=== PATIENT | female | born 1950 | race African-American/Black ===

== ENCOUNTER 2017-09-04 14:19 | Inpatient (IN) | payer MEDICARE, OTHER ==
[~2017-09-04] VITALS: Ht 180.3 cm; Wt 95.3 kg
[~2017-09-04 14:19] MED LIST: AMLODIPINE BESY10 MG ORAL; ASPIRIN-LOW81 MG ORAL; CARVEDILOL12.5 MG ORAL; COMBIVENT INH14.7 GM INH; COZAAR50 MG ORAL; FLOVENT DISKUS50 MCG INH; GABAPENTIN100 MG ORAL; LOVASTATIN40 MG ORAL; NAPROXEN250 MG ORAL; NASONEX17 GM NASAL; NEXIUM40 MG ORAL; PENTOXIFYLLINE400 MG ORAL; POTASSIUM CHLOR8 ME3 ORAL; PREDNISOLONE ACE5 ML BOTH EYES; SERTRALINE HCL100 MG ORAL; SPIRIVA18 MCG INH; SYMBICORT 1601 PUFFS INH; TERBINAFINE HC250 MG ORAL
[2017-09-04] MEDS ORDERED: Sodium Chloride 500ML 500 ML IV ONE (14:45)
--- NOTE | 2017-09-04 14:53 | Emergency Room Report ---
History of Present Illness General Chief Complaint: Generalized Weakness Source: Patient Present Illness HPI Patient is a 67-year-old female who presented after increased generalized weakness and lethargy. Patient reports having increased nausea. She reports having prior history of bronchiectasis and COPD. She reports having multiple previous hospitalizations for similar symptoms. Patient reports having been followed by Dr. Cristi Sawyer. she denies any fever. Allergies: Coded Allergies: No Known Allergies (Verified Allergy, Mild, 09/09/09) Patient History Past Medical History: see triage record Last Menstrual Period: na Reviewed Nursing Documentation: PMH: Agreed, PSxH: Agreed Nursing Documentation-PMH Past Medical History: No History, Except For Hx Cardiac Problems: Yes - mitral valve prolapse, heart murmur Hx Hypertension: Yes Hx COPD: Yes Hx Cancer: No Hx Gastrointestinal Problems: Yes Hx Neurological Problems: Yes - headaches, pinched nerve, left eye blindness Hx Headaches: Yes Hx Fatigue: Yes Review of Systems All Other Systems: negative except mentioned in HPI Physical Exam Vital Signs Date Time Temp Pulse Resp B/P (MAP) Pulse Ox O2 Delivery O2 Flow Rate FiO2 09/04/17 14:26 98.1 57 20 137/56 97 Nasal Cannula 2.0 98.1 Sp02 EP Interpretation: reviewed, normal General Appearance: normal inspection, well appearing, no apparent distress, alert, Chronically Ill Head: atraumatic ENT: normal ENT inspection, hearing grossly normal, normal voice Neck: normal inspection, full range of motion, supple, no bony tend Respiratory: normal inspection, no respiratory distress, no retraction, wheezing Cardiovascular #1: regular rate, rhythm, no edema Gastrointestinal: normal inspection, normal bowel sounds, non tender, soft, no guarding, no hernia Genitourinary: no CVA tenderness Musculoskeletal: normal inspection, back normal, normal range of motion Neurologic: normal inspection, alert, oriented x3, responsive, speech normal Psychiatric: normal inspection, judgement/insight normal, mood/affect normal Skin: normal inspection, normal color, no rash Medical Decision Making Diagnostic Impression: Primary Impression: Episode of generalized weakness Additional Impressions: Bronchiectasis COPD (chronic obstructive pulmonary disease) ER Course Patient presented for generalized weakness. Differential diagnosis included was not limited to anemia, urinary tract infection, electrolyte abnormality, hypothyroidism, myocardial infarction, myasthenia gravis, dehydration, among others. Because of complexity of patient's case laboratory testing and imaging studies were ordered. Patient was given breathing treatments as noted have continued shortness of breath.Dr. Cristi Sawyer was contacted for inpatient management. Labs Test 09/04/17 15:25 09/04/17 16:15 White Blood Count 4.2 K/UL (4.8-10.8) Red Blood Count 3.52 M/UL (4.20-5.40) Hemoglobin 11.7 G/DL (12.0-16.0) Hematocrit 35.6 % (37.0-47.0) Mean Corpuscular Volume 101 FL (80-99) Mean Corpuscular Hemoglobin 33.2 PG (27.0-31.0) Mean Corpuscular Hemoglobin Concent 32.8 G/DL (32.0-36.0) Red Cell Distribution Width 11.3 % (11.6-14.8) Platelet Count 227 K/UL (150-450) Mean Platelet Volume 7.9 FL (6.5-10.1) Neutrophils (%) (Auto) 55.8 % (45.0-75.0) Lymphocytes (%) (Auto) 27.6 % (20.0-45.0) Monocytes (%) (Auto) 12.6 % (1.0-10.0) Eosinophils (%) (Auto) 3.0 % (0.0-3.0) Basophils (%) (Auto) 1.0 % (0.0-2.0) Sodium Level 136 MMOL/L (136-145) Potassium Level 4.6 MMOL/L (3.5-5.1) Chloride Level 100 MMOL/L (98-107) Carbon Dioxide Level 29 MMOL/L (21-32) Anion Gap 7 mmol/L (5-15) Blood Urea Nitrogen 18 mg/dL (7-18) Creatinine 2.5 MG/DL (0.55-1.30) Estimat Glomerular Filtration Rate 23.4 mL/min (>60) Glucose Level 104 MG/DL (74-106) Lactic Acid Level 1.30 mmol/L (0.66-2.22) Calcium Level 9.2 MG/DL (8.5-10.1) Phosphorus Level 2.7 MG/DL (2.5-4.9) Magnesium Level 1.8 MG/DL (1.8-2.4) Total Bilirubin 0.3 MG/DL (0.2-1.0) Aspartate Amino Transf (AST/SGOT) 25 U/L (15-37) Alanine Aminotransferase (ALT/SGPT) 20 U/L (12-78) Alkaline Phosphatase 121 U/L (46-116) Total Creatine Kinase 106 U/L (26-308) Creatine Kinase MB 1.0 NG/ML (0.0-3.6) Creatine Kinase MB Relative Index 0.9 Troponin I 0.005 ng/mL (0.000-0.056) Total Protein 7.5 G/DL (6.4-8.2) Albumin 3.9 G/DL (3.4-5.0) Globulin 3.6 g/dL Albumin/Globulin Ratio 1.1 (1.0-2.7) Urine Color Pale yellow Urine Appearance Clear Urine pH 7 (4.5-8.0) Urine Specific [place] 1.010 (1.005-1.035) Urine Protein Negative (NEGATIVE) Urine Glucose (UA) Negative (NEGATIVE) Urine Ketones Negative (NEGATIVE) Urine Occult Blood Negative (NEGATIVE) Urine Nitrite Negative (NEGATIVE) Urine Bilirubin Negative (NEGATIVE) Urine Urobilinogen Normal MG/DL (0.0-1.0) Urine Leukocyte Esterase Negative (NEGATIVE) EKG Diagnostic Results Rate: bradycardiac Rhythm: NSR - 55 ST Segments: no acute changes Chest X-Ray Diagnostic Results Chest X-Ray Diagnostic Results : Chest X-Ray Ordered: Yes # of Views/Limited/Complete: 1 View Indication: Shortness of Breath EP Interpretation: Yes PA Xray: Interpretation reviewed Interpretation: no consolidation, no effusion, no acute cardiopulmonary disease Impression: No acute disease Electronically Signed by: Electronically signed by Dr. Dago Watson M.D. Last Vital Signs Date Time Temp Pulse Resp B/P (MAP) Pulse Ox O2 Delivery O2 Flow Rate FiO2 09/04/17 14:26 98.1 57 20 137/56 97 Nasal Cannula 2.0 98.1 Status: unchanged Disposition: ADMITTED INPATIENT Condition: Serious Dago Watson Sep 04, 2017 14:53
[2017-09-04] MEDS ORDERED: Albuterol/Ipratropium 3ml neb HHN ONE (15:30)
[2017-09-04 15:43] LABS: HEMATOCRIT 35.6 % (37.0-47.0); HEMOGLOBIN 11.7 G/DL (12.0-16.0); LYMPHOCYTES % (AUTO) 27.6 % (20.0-45.0); MEAN CORPUSCULAR VOLUME 101 FL (80-99); MONOCYTES % (AUTO) 12.6 % (1.0-10.0); NEUTROPHILS % (AUTO) 55.8 % (45.0-75.0); PLATELET COUNT 227 K/UL (150-450); RED BLOOD COUNT 3.52 M/UL (4.20-5.40); RED CELL DISTRIBUTION WIDTH 11.3 % (11.6-14.8); WHITE BLOOD COUNT 4.2 K/UL (4.8-10.8)
[2017-09-04 15:53] LABS: ANION GAP 7 mmol/L (5-15); BLOOD UREA NITROGEN 18 mg/dL (7-18); CALCIUM 9.2 MG/DL (8.5-10.1); CARBON DIOXIDE 29 MMOL/L (21-32); CHLORIDE 100 MMOL/L (98-107); CREATININE 2.5 MG/DL (0.55-1.30); POTASSIUM 4.6 MMOL/L (3.5-5.1); SODIUM 136 MMOL/L (136-145)
--- NOTE | 2017-09-04 16:00 | Diagnostic Imaging Report ---
Indication: Shortness of breath Technique: One view of the chest Comparison: 12/16/2012 Findings: Again demonstrated is left apical pleural scarring. Extensive fibrotic changes seen throughout the left lung. There is volume loss of the left lung. These findings are unchanged. There is some right perihilar scarring. Right lung is slightly hyperinflated. Right lung infiltrate is otherwise clear. The heart is borderline enlarged. Surgical clips are seen in the left upper abdomen Impression: Left lung pleural and parenchymal disease, suspect chronic and unchanged since 12/16/2012 No definite acute process
[2017-09-04 16:06] LABS: ALANINE AMINOTRANSFERASE 20 U/L (12-78); ALBUMIN 3.9 G/DL (3.4-5.0); ALBUMIN/GLOBULIN RATIO 1.1 (1.0-2.7); ALKALINE PHOSPHATASE 121 U/L (46-116); ASPARTATE AMINO TRANSFERASE 25 U/L (15-37); BILIRUBIN,TOTAL 0.3 MG/DL (0.2-1.0); CREATINE KINASE 106 U/L (26-308); PHOSPHORUS 2.7 MG/DL (2.5-4.9)
--- NOTE | 2017-09-04 16:26 | GI Initial Consult Note ---
Flori Echevarria N.P. 09/04/17 1626: History of Present Illness General Date patient seen: Sep 04, 2017 Time patient seen: 16:15 Reason for Hospitalization: Generalized Weakness Referring physician: LUMA MCCLENDON Reason for Consultation: ABDOMINAL PAIN Present Illness HPI Patient is a 67-year-old female who presented after increased generalized weakness and lethargy. Patient reports having increased nausea. She reports having prior history of bronchiectasis and COPD. She reports having multiple previous hospitalizations for similar symptoms. Patient reports having been followed by Dr. Luma Mcclendon. she denies any fever. GI consulted for abdominal pain. Pt seen in ED, awake A&Ox4 NAD c/o of lower abdominal pain, nausea without vomiting and having difficulty urinating. Abdomen is soft, non-tender, non distended. Self medicated with elias seltzer and baking soda x 3 days prior to admitting herself to the hospital. Patient has history of elevated CEA, CA19-9. She had previous EUS performed in 2012 to evaluate for any malignancy with was unremarkable. She presents today with anemia, abnormal alk phos and renal insufficiency. Cannot recall her last colonoscopy. Home Meds Reported Medications Trimethoprim/Sulfamethoxazole (Bactrim 400-80 mg Tablet) 1 Each Tablet, 1 TAB ORAL BID, TAB 09/05/17 Multivitamin (MULTIVITAMINS) 1 Each Capsule, 1 CAP ORAL DAILY, CAP 09/04/17 Spironolactone (ALDACTONE) 25 Mg Tablet, 12.5 MG ORAL DAILY, TAB 09/04/17 Atorvastatin Calcium* (ATORVASTATIN CALCIUM*) 20 Mg Tablet, 20 MG ORAL DAILY, TAB 09/04/17 Doxepin HCl (Doxepin HCl) 45 Gm Cream..g., 45 GM TP PRN for Itching, GM 09/04/17 Calcipotriene (CALCIPOTRIENE) 60 Gm Cream..g., 60 GM TP PRN for Itching/Pruritis , GM 09/04/17 Omeprazole (OMEPRAZOLE) 40 Mg Capsule.dr, 40 MG ORAL DAILY, CAP 09/04/17 Baclofen (Baclofen) 20 Mg Tablet, 20 MG ORAL QHS, TAB 09/04/17 Gabapentin* (GABAPENTIN*) 600 Mg Tablet, 600 MG ORAL QHS, TAB 09/04/17 Ipratropium/Albuterol Sulfate (COMBIVENT INHALER) 14.7 Gm Aer.w.adap, 2 PUFFS INH QID 09/05/12 Mometasone Furoate (NASONEX) 17 Gm [place].pump, 1 SPRAY NASAL DAILY, GM 09/05/12 Amlodipine Besylate* (AMLODIPINE BESYLATE*) 10 Mg Tablet, 10 MG ORAL DAILY 09/05/12 Fluticasone Propionate (Flovent Diskus) 50 Mcg Disk.w.dev, 50 MCG INH EVERY 4 HOURS 09/05/12 Sertraline Hcl* (ZOLOFT*) 100 Mg Tablet, 100 MG ORAL DAILY, TAB 09/05/12 Carvedilol* (CARVEDILOL*) 12.5 Mg Tablet, 12.5 MG ORAL EVERY 12 HOURS, TAB 09/05/12 Esomeprazole Magnesium (NEXIUM) 40 Mg Capsule.dr, 40 MG ORAL DAILY, CAP 09/05/12 Losartan Potassium* (COZAAR*) 50 Mg Tablet, 50 MG ORAL DAILY, TAB 09/05/12 Aspirin (Aspirin EC) 81 Mg Tabec, 81 MG ORAL DAILY, TAB 09/05/12 Prednisolone Acetate (PREDNISOLONE ACETATE) 5 Ml Drops.susp, 2 DROP BOTH EYES TWICE A DAY, ML 09/05/12 Discontinued Reported Medications Tiotropium [place]* (SPIRIVA*) 18 Mcg Cap.w.dev, 1 PUFF INH DAILY, #1 EA 09/05/12 Budesonide/Formoterol Fumarate (Symbicort 160-4.5 Mcg Inhaler) 1 Puffs Aero, 1 PUFFS INH TWICE A DAY 09/05/12 Pentoxifylline* (TRENTAL*) 400 Mg Tablet.er, 400 MG ORAL TWICE A DAY, TAB 09/05/12 Potassium Chloride (POTASSIUM CHLORIDE) 8 Meq Tablet.er, 16 MEQ ORAL DAILY, TAB 09/05/12 Lovastatin (LOVASTATIN) 40 Mg Tablet, 40 MG ORAL DAILY, TAB 09/05/12 Terbinafine Hcl* (LAMISIL*) 250 Mg Tablet, 250 MG ORAL DAILY, TAB 09/05/12 Med list reviewed/reconciled: Yes Allergies: Coded Allergies: NO KNOWN ALLERGIES (Verified Allergy, Unknown, 09/04/17) Patient History History Provided By: Patient, Medical Record Past Medical History: COPD PMH Narrative Allergies: Coded Allergies: No Known Allergies (Verified Allergy, Mild, 09/09/09) Past Medical History: No History, Except For Hx Cardiac Problems: Yes - mitral valve prolapse, heart murmur Hx Hypertension: Yes Hx COPD: Yes Hx Cancer: No Hx Gastrointestinal Problems: Yes Hx Neurological Problems: Yes - headaches, pinched nerve, left eye blindness Hx Headaches: Yes Hx Fatigue: Yes Review of Systems All Other Systems: negative except mentioned in HPI Physical Exam Vital Signs Date Time Temp Pulse Resp B/P (MAP) Pulse Ox O2 Delivery O2 Flow Rate FiO2 09/04/17 14:26 98.1 57 20 137/56 97 Nasal Cannula 2.0 98.1 Sp02 EP Interpretation: reviewed, normal Labs Laboratory Tests Test 09/04/17 15:25 White Blood Count 4.2 K/UL (4.8-10.8) L Red Blood Count 3.52 M/UL (4.20-5.40) L Hemoglobin 11.7 G/DL (12.0-16.0) L Hematocrit 35.6 % (37.0-47.0) L Mean Corpuscular Volume 101 FL (80-99) H Mean Corpuscular Hemoglobin 33.2 PG (27.0-31.0) H Mean Corpuscular Hemoglobin Concent 32.8 G/DL (32.0-36.0) Red Cell Distribution Width 11.3 % (11.6-14.8) L Platelet Count 227 K/UL (150-450) Mean Platelet Volume 7.9 FL (6.5-10.1) Neutrophils (%) (Auto) 55.8 % (45.0-75.0) Lymphocytes (%) (Auto) 27.6 % (20.0-45.0) Monocytes (%) (Auto) 12.6 % (1.0-10.0) H Eosinophils (%) (Auto) 3.0 % (0.0-3.0) Basophils (%) (Auto) 1.0 % (0.0-2.0) Sodium Level 136 MMOL/L (136-145) Potassium Level 4.6 MMOL/L (3.5-5.1) Chloride Level 100 MMOL/L (98-107) Carbon Dioxide Level 29 MMOL/L (21-32) Anion Gap 7 mmol/L (5-15) Blood Urea Nitrogen 18 mg/dL (7-18) Creatinine 2.5 MG/DL (0.55-1.30) H Estimat Glomerular Filtration Rate 23.4 mL/min (>60) Glucose Level 104 MG/DL (74-106) Lactic Acid Level Pending Calcium Level 9.2 MG/DL (8.5-10.1) Phosphorus Level 2.7 MG/DL (2.5-4.9) Magnesium Level 1.8 MG/DL (1.8-2.4) Total Bilirubin 0.3 MG/DL (0.2-1.0) Aspartate Amino Transf (AST/SGOT) 25 U/L (15-37) Alanine Aminotransferase (ALT/SGPT) 20 U/L (12-78) Alkaline Phosphatase 121 U/L (46-116) H Total Creatine Kinase 106 U/L (26-308) Creatine Kinase MB 1.0 NG/ML (0.0-3.6) Creatine Kinase MB Relative Index 0.9 Troponin I 0.005 ng/mL (0.000-0.056) Total Protein 7.5 G/DL (6.4-8.2) Albumin 3.9 G/DL (3.4-5.0) Globulin 3.6 g/dL Albumin/Globulin Ratio 1.1 (1.0-2.7) General Appearance: well appearing, no apparent distress, alert Head: normocephalic EENT: PERRL/EOMI, normal ENT inspection Neck: supple Respiratory: normal breath sounds, no respiratory distress Cardiovascular: normal rate Gastrointestinal: normal inspection, non tender, soft, normal bowel sounds, non -distended Rectal: deferred Genitourinary: no CVA tenderness Musculoskeletal: normal inspection, back normal Neurologic: normal inspection, alert, oriented x3, responsive Psychiatric: normal inspection, judgement/insight normal, memory normal Skin: normal inspection, normal color, no rash, warm/dry, palpation normal, well hydrated Lymphatic: normal inspection, no adenopathy GI: Plan Problems: (1) Anemia (2) Renal insufficiency (3) Alkaline phosphatase elevation (4) 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) (5) Episode of generalized weakness Plan s/p EUS 2012 >> unremarkable Hx of CA19-9 elevation CXR reviewed >> no acute process IV/PO hydration adv diet as tolerated zofran prn anemia work up OB stool r/o GI bleed monitor H&H, prn transfusions bowel regime ppi abdominal U/S fu labs, CA19-9 outpatient GI procedures Discussed with Dr. Erwin. Thank you for this patient referral, we will follow. [email or web address] 09/07/17 0912: History of Present Illness General Reason for Hospitalization: Generalized Weakness Present Illness Home Meds Reported Medications Trimethoprim/Sulfamethoxazole (Bactrim 400-80 mg Tablet) 1 Each Tablet, 1 TAB ORAL BID, TAB 09/05/17 Multivitamin (MULTIVITAMINS) 1 Each Capsule, 1 CAP ORAL DAILY, CAP 09/04/17 Spironolactone (ALDACTONE) 25 Mg Tablet, 12.5 MG ORAL DAILY, TAB 09/04/17 Atorvastatin Calcium* (ATORVASTATIN CALCIUM*) 20 Mg Tablet, 20 MG ORAL DAILY, TAB 09/04/17 Doxepin HCl (Doxepin HCl) 45 Gm Cream..g., 45 GM TP PRN for Itching, GM 09/04/17 Calcipotriene (CALCIPOTRIENE) 60 Gm Cream..g., 60 GM TP PRN for Itching/Pruritis , GM 09/04/17 Omeprazole (OMEPRAZOLE) 40 Mg Capsule.dr, 40 MG ORAL DAILY, CAP 09/04/17 Baclofen (Baclofen) 20 Mg Tablet, 20 MG ORAL QHS, TAB 09/04/17 Gabapentin* (GABAPENTIN*) 600 Mg Tablet, 600 MG ORAL QHS, TAB 09/04/17 Ipratropium/Albuterol Sulfate (COMBIVENT INHALER) 14.7 Gm Aer.w.adap, 2 PUFFS INH QID 09/05/12 Mometasone Furoate (NASONEX) 17 Gm [place].pump, 1 SPRAY NASAL DAILY, GM 09/05/12 Amlodipine Besylate* (AMLODIPINE BESYLATE*) 10 Mg Tablet, 10 MG ORAL DAILY 09/05/12 Fluticasone Propionate (Flovent Diskus) 50 Mcg Disk.w.dev, 50 MCG INH EVERY 4 HOURS 09/05/12 Sertraline Hcl* (ZOLOFT*) 100 Mg Tablet, 100 MG ORAL DAILY, TAB 09/05/12 Carvedilol* (CARVEDILOL*) 12.5 Mg Tablet, 12.5 MG ORAL EVERY 12 HOURS, TAB 09/05/12 Esomeprazole Magnesium (NEXIUM) 40 Mg Capsule.dr, 40 MG ORAL DAILY, CAP 09/05/12 Losartan Potassium* (COZAAR*) 50 Mg Tablet, 50 MG ORAL DAILY, TAB 09/05/12 Aspirin (Aspirin EC) 81 Mg Tabec, 81 MG ORAL DAILY, TAB 09/05/12 Prednisolone Acetate (PREDNISOLONE ACETATE) 5 Ml Drops.susp, 2 DROP BOTH EYES TWICE A DAY, ML 09/05/12 Discontinued Reported Medications Tiotropium [place]* (SPIRIVA*) 18 Mcg Cap.w.dev, 1 PUFF INH DAILY, #1 EA 09/05/12 Budesonide/Formoterol Fumarate (Symbicort 160-4.5 Mcg Inhaler) 1 Puffs Aero, 1 PUFFS INH TWICE A DAY 09/05/12 Pentoxifylline* (TRENTAL*) 400 Mg Tablet.er, 400 MG ORAL TWICE A DAY, TAB 09/05/12 Potassium Chloride (POTASSIUM CHLORIDE) 8 Meq Tablet.er, 16 MEQ ORAL DAILY, TAB 09/05/12 Lovastatin (LOVASTATIN) 40 Mg Tablet, 40 MG ORAL DAILY, TAB 09/05/12 Terbinafine Hcl* (LAMISIL*) 250 Mg Tablet, 250 MG ORAL DAILY, TAB 09/05/12 Allergies: Coded Allergies: NO KNOWN ALLERGIES (Verified Allergy, Unknown, 09/04/17) GI: Plan Plan The patient was seen and examined at bedside and all new and available data was reviewed in the patients chart. I agree with the above findings, impression and plan. (Patient seen earlier today. Signature stamp does not reflect patient encounter time.). - MD Swathi [facility]Hon[facility] Ra N.PRadha Sep 04, 2017 16:26 SEVERO ERWIN Sep 07, 2017 09:12
[2017-09-04 16:30] VITALS: BP 120/79
[2017-09-04 17:02] LABS: APPEARANCE,URINE CLEAR; BILIRUBIN, URINE NEGATIVE (NEGATIVE); COLOR,URINE PALE YELLOW; GLUCOSE, URINE (UA) NEGATIVE (NEGATIVE); KETONES,URINE NEGATIVE (NEGATIVE); LEUKOCYTE ESTERASE ,URINE NEGATIVE (NEGATIVE); NITRITE,URINE NEGATIVE (NEGATIVE); PH,URINE 7 (4.5-8.0); PROTEIN,URINE NEGATIVE (NEGATIVE); UROBILINOGEN,URINE NORMAL MG/DL (0.0-1.0)
[2017-09-04] MEDS ORDERED: guaiFENesin 100mg/5ml Liq ud ORAL ONE (18:15)
[2017-09-04 18:33] VITALS: BP 130/79
[2017-09-04 19:46] VITALS: BP 143/56
[2017-09-04] MEDS ORDERED: DOXEPIN HCL45 GM TP (20:06)
[2017-09-04] MEDS ORDERED: GABAPENTIN600 MG ORAL (20:06)
[2017-09-04] MEDS ORDERED: CALCIPOTRIENE60 G1 TP (20:06)
[2017-09-04] MEDS ORDERED: MULTIVITAMINS1 EA11 ORAL (20:06)
[2017-09-04] MEDS ORDERED: ALDACTONE25 MG ORAL (20:06)
[2017-09-04] MEDS ORDERED: ATORVASTATIN CA20 MG ORAL (20:06)
[2017-09-04] MEDS ORDERED: OMEPRAZOLE40 M1 ORAL (20:06)
[2017-09-04] MEDS ORDERED: LIORESAL20 MG ORAL (20:06)
[2017-09-04 20:08] VITALS: BP 136/63
[2017-09-04] MEDS ORDERED: Promethazine/Codeine 5ml UD ORAL PRN (22:15)
[2017-09-04] MEDS ORDERED: LORazepam Inj 2mg/ml 1ml IV PRN (22:15)
[2017-09-04] MEDS ORDERED: Mylanta II UD 30ml ORAL PRN (22:15)
[2017-09-04] MEDS ORDERED: Morphine Sulfate 2mg/ml Inj IVP PRN (22:15)
[2017-09-04] MEDS ORDERED: Miralax 17gm pkt ORAL PRN (22:15)
[2017-09-04] MEDS ORDERED: Nitroglycerin Subl 0.4mg tab SL PRN (22:15)
[2017-09-04] MEDS: D5 1/2NS 1,000 ML IV SCH (23:10)
[2017-09-05] VITALS: BP 120/57
[2017-09-05 04:00] VITALS: BP 124/49
[2017-09-05 08:00] VITALS: BP 123/63
[2017-09-05] MEDS ORDERED: BACTRIM DOUBLE S1 E1 ORAL (08:03)
[2017-09-05 08:51] LABS: EOSINOPHILS % (AUTO) 4.4 % (0.0-3.0); HEMATOCRIT 32.7 % (37.0-47.0); LYMPHOCYTES % (AUTO) 24.5 % (20.0-45.0); MEAN CORPUSCULAR VOLUME 103 FL (80-99); MONOCYTES % (AUTO) 12.9 % (1.0-10.0); NEUTROPHILS % (AUTO) 57.2 % (45.0-75.0); PLATELET COUNT 200 K/UL (150-450); RED BLOOD COUNT 3.19 M/UL (4.20-5.40); RED CELL DISTRIBUTION WIDTH 11.6 % (11.6-14.8); WHITE BLOOD COUNT 3.7 K/UL (4.8-10.8)
[2017-09-05] MEDS ORDERED: Sertraline 100mg tab ORAL SCH (09:00)
[2017-09-05] MEDS ORDERED: Pantoprazole Inj IV SCH (09:00)
[2017-09-05] MEDS ORDERED: Losartan 50mg tab ORAL SCH (09:00)
[2017-09-05 09:09] LABS: AMYLASE 111 U/L (25-115)
[2017-09-05 09:14] LABS: ALANINE AMINOTRANSFERASE 23 U/L (12-78); ALBUMIN 3.6 G/DL (3.4-5.0); ALBUMIN/GLOBULIN RATIO 0.9 (1.0-2.7); ALKALINE PHOSPHATASE 114 U/L (46-116); ANION GAP 8 mmol/L (5-15); ASPARTATE AMINO TRANSFERASE 25 U/L (15-37); BILIRUBIN,TOTAL 0.4 MG/DL (0.2-1.0); BLOOD UREA NITROGEN 16 mg/dL (7-18); CALCIUM 9.4 MG/DL (8.5-10.1); CARBON DIOXIDE 29 MMOL/L (21-32); CHLORIDE 102 MMOL/L (98-107); CREATININE 2.6 MG/DL (0.55-1.30); POTASSIUM 4.7 MMOL/L (3.5-5.1); SODIUM 139 MMOL/L (136-145)
[2017-09-05] MEDS: Carvedilol 12.5mg tab ORAL SCH ×2 (09:17→21:31)
[2017-09-05] MEDS: Heparin 5000 units/ml inj SUBQ SCH ×2 (09:20→21:33)
--- NOTE | 2017-09-05 09:24 | Diagnostic Imaging Report ---
Indication: Abnormal renal function tests. Abnormal liver function tests Technique: Petersen-scale and duplex images of the upper abdomen were obtained Comparison: 12/13/2012 Findings: Exam somewhat limited due to patient body habitus Gallbladder is contracted, otherwise unremarkable, without stones, wall thickening, nor pericholecystic fluid. Sonographic Dove's sign is negative. Common bile duct measures 4 mm in diameter. No intrahepatic biliary ductal dilatation. Liver demonstrates normal echogenicity, no focal abnormality. Portal vein and hepatic veins are patent. Pancreas is unremarkable. Spleen is unremarkable. Left kidney measures 9.6 cm in length. Right kidney measures 9.1 cm length. Both kidneys demonstrate normal echogenicity. 6 there is mild right hydronephrosis previously described right renal cyst is not evident on this exam. Cyst tiny echogenic focus is seen in the right renal sinus . Non-aneurysmal abdominal aorta . Impression: Negative for gallstones or dilated ducts Mild right hydronephrosis, etiology not demonstrated. Consider CT for further evaluation Small right renal collecting system calculus versus artifact
[2017-09-05 09:29] LABS: % IRON SATURATION 24 % (15-50); IRON 61 ug/dL (50-175); TOTAL IRON BINDING CAPACITY 254 ug/dL (250-450)
[2017-09-05 09:39] LABS: ANION GAP 8 mmol/L (5-15); BLOOD UREA NITROGEN 17 mg/dL (7-18); CALCIUM 9.4 MG/DL (8.5-10.1); CARBON DIOXIDE 28 MMOL/L (21-32); CHLORIDE 103 MMOL/L (98-107); CREATININE 2.5 MG/DL (0.55-1.30); FERRITIN 224 NG/ML (8-388); POTASSIUM 4.7 MMOL/L (3.5-5.1); SODIUM 139 MMOL/L (136-145)
--- NOTE | 2017-09-05 10:44 | GI Progress Note ---
Assessment/Plan Problems: (1) Alkaline phosphatase elevation ICD Codes: R74.8 - Abnormal levels of other serum enzymes SNOMED: 371619050 (2) Renal insufficiency ICD Codes: N28.9 - Disorder of kidney and ureter, unspecified SNOMED: 728924632, 714015293 (3) Anemia ICD Codes: D64.9 - Anemia, unspecified SNOMED: 824315005 (4) Episode of generalized weakness ICD Codes: R53.1 - Weakness SNOMED: 58323194 (5) 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) ICD Codes: R79.89 - Other specified abnormal findings of blood chemistry SNOMED: 860849883, 110658377 Status: progressing Status Narrative Discussed with Dr. Jacome. Assessment/Plan s/p EUS 2012 >> unremarkable Hx of CA19-9 elevation CXR reviewed >> no acute process abdominal U/S reviewed >> mild right hydronephrosis IV/PO hydration renal diet promethazine prn anemia work up OB stool r/o GI bleed monitor H&H, prn transfusions bowel regime ppi fu labs, CA19-9 outpatient GI procedures The patient was seen and examined at bedside and all new and available data was reviewed in the patients chart. I agree with the above findings, impression and plan. (Patient seen earlier today. Signature stamp does not reflect patient encounter time.). - Shanel Jacome MD Subjective Subjective nausea better feels light headed hungry Objective Last 24 Hour Vital Signs Date Time Temp Pulse Resp B/P (MAP) Pulse Ox O2 Delivery O2 Flow Rate FiO2 09/05/17 09:18 55 123/63 09/05/17 09:17 123/63 09/05/17 09:17 55 123/63 09/05/17 08:00 98.1 55 20 123/63 98 98.1 09/05/17 08:00 59 09/05/17 07:08 99 Nasal Cannula 2.0 28 09/05/17 07:08 Nasal Cannula 2.0 28 09/05/17 07:07 58 20 100 Nasal Cannula 2.0 28 09/05/17 06:59 56 20 100 Nasal Cannula 2.0 28 09/05/17 04:00 98.1 61 18 124/49 98 98.1 09/05/17 04:00 61 09/05/17 03:30 60 16 98 Room Air 21 09/05/17 03:30 64 20 99 Room Air 21 09/05/17 00:00 97.9 66 16 120/57 94 97.9 09/05/17 00:00 60 09/04/17 20:08 97.9 61 20 136/63 90 97.9 09/04/17 19:50 59 15 143/56 96 09/04/17 19:46 98.0 60 15 143/56 96 Nasal Cannula 2.0 21 98.0 09/04/17 18:33 98.0 60 18 130/79 99 Nasal Cannula 2.0 21 98.0 09/04/17 16:30 98.0 60 18 120/79 99 Nasal Cannula 2.0 98.0 09/04/17 15:55 56 18 100 Room Air 21 09/04/17 15:55 100 09/04/17 15:50 54 17 100 Room Air 21 09/04/17 15:50 54 17 Room Air 98 09/04/17 14:26 98.1 57 20 137/56 97 Nasal Cannula 2.0 98.1 Intake and Output 09/04/17 09/05/17 19:00 07:00 Intake Total 600 ml 450 ml Balance 600 ml 450 ml Intake Oral 100 ml 0 ml IV Total 500 ml 450 ml # Voids 3 Laboratory Tests Test 09/04/17 15:25 09/04/17 16:15 09/05/17 04:00 09/05/17 07:48 White Blood Count 4.2 K/UL (4.8-10.8) L 3.7 K/UL (4.8-10.8) L Red Blood Count 3.52 M/UL (4.20-5.40) L 3.19 M/UL (4.20-5.40) L Hemoglobin 11.7 G/DL (12.0-16.0) L 11.0 G/DL (12.0-16.0) L Hematocrit 35.6 % (37.0-47.0) L 32.7 % (37.0-47.0) L Mean Corpuscular Volume 101 FL (80-99) H 103 FL (80-99) H Mean Corpuscular Hemoglobin 33.2 PG (27.0-31.0) H 34.5 PG (27.0-31.0) H Mean Corpuscular Hemoglobin Concent 32.8 G/DL (32.0-36.0) 33.6 G/DL (32.0-36.0) Red Cell Distribution Width 11.3 % (11.6-14.8) L 11.6 % (11.6-14.8) Platelet Count 227 K/UL (150-450) 200 K/UL (150-450) Mean Platelet Volume 7.9 FL (6.5-10.1) 8.1 FL (6.5-10.1) Neutrophils (%) (Auto) 55.8 % (45.0-75.0) 57.2 % (45.0-75.0) Lymphocytes (%) (Auto) 27.6 % (20.0-45.0) 24.5 % (20.0-45.0) Monocytes (%) (Auto) 12.6 % (1.0-10.0) H 12.9 % (1.0-10.0) H Eosinophils (%) (Auto) 3.0 % (0.0-3.0) 4.4 % (0.0-3.0) H Basophils (%) (Auto) 1.0 % (0.0-2.0) 1.0 % (0.0-2.0) Sodium Level 136 MMOL/L (136-145) 139 MMOL/L (136-145) Potassium Level 4.6 MMOL/L (3.5-5.1) 4.7 MMOL/L (3.5-5.1) Chloride Level 100 MMOL/L (98-107) 102 MMOL/L (98-107) Carbon Dioxide Level 29 MMOL/L (21-32) 29 MMOL/L (21-32) Anion Gap 7 mmol/L (5-15) 8 mmol/L (5-15) Blood Urea Nitrogen 18 mg/dL (7-18) 16 mg/dL (7-18) Creatinine 2.5 MG/DL (0.55-1.30) H 2.6 MG/DL (0.55-1.30) H Estimat Glomerular Filtration Rate 23.4 mL/min (>60) 22.4 mL/min (>60) Glucose Level 104 MG/DL (74-106) 112 MG/DL (74-106) H Lactic Acid Level 1.30 mmol/L (0.66-2.22) Calcium Level 9.2 MG/DL (8.5-10.1) 9.4 MG/DL (8.5-10.1) Phosphorus Level 2.7 MG/DL (2.5-4.9) Magnesium Level 1.8 MG/DL (1.8-2.4) Total Bilirubin 0.3 MG/DL (0.2-1.0) 0.4 MG/DL (0.2-1.0) Aspartate Amino Transf (AST/SGOT) 25 U/L (15-37) 25 U/L (15-37) Alanine Aminotransferase (ALT/SGPT) 20 U/L (12-78) 23 U/L (12-78) Alkaline Phosphatase 121 U/L (46-116) H 114 U/L (46-116) Total Creatine Kinase 106 U/L (26-308) Creatine Kinase MB 1.0 NG/ML (0.0-3.6) Creatine Kinase MB Relative Index 0.9 Troponin I 0.005 ng/mL (0.000-0.056) Total Protein 7.5 G/DL (6.4-8.2) 7.4 G/DL (6.4-8.2) Albumin 3.9 G/DL (3.4-5.0) 3.6 G/DL (3.4-5.0) Globulin 3.6 g/dL 3.8 g/dL Albumin/Globulin Ratio 1.1 (1.0-2.7) 0.9 (1.0-2.7) L Urine Color Pale yellow Urine Appearance Clear Urine pH 7 (4.5-8.0) Urine Specific [place] 1.010 (1.005-1.035) Urine Protein Negative (NEGATIVE) Urine Glucose (UA) Negative (NEGATIVE) Urine Ketones Negative (NEGATIVE) Urine Occult Blood Negative (NEGATIVE) Urine Nitrite Negative (NEGATIVE) Urine Bilirubin Negative (NEGATIVE) Urine Urobilinogen Normal MG/DL (0.0-1.0) Urine Leukocyte Esterase Negative (NEGATIVE) Reticulocyte Count Pending Prothrombin Time 10.4 SEC (9.30-11.50) Prothromb Time International Ratio 1.0 (0.9-1.1) Activated Partial Thromboplast Time 27 SEC (23-33) Iron Level 61 ug/dL (50-175) Total Iron Binding Capacity 254 ug/dL (250-450) Percent Iron Saturation 24 % (15-50) Unsaturated Iron Binding 193 ug/dL (112-346) Ferritin 224 NG/ML (8-388) Amylase Level 111 U/L (25-115) Lipase 205 U/L (73-393) Vitamin B12 Level 675 PG/ML (193-986) Folate 11.0 NG/ML (8.6-58.9) Thyroid Stimulating Hormone (TSH) 2.272 uiU/mL (0.358-3.740) Free Thyroxine 0.59 NG/DL (0.76-1.46) L Height (Feet): 5 Height (Inches): 11.00 Weight (Pounds): 210 General Appearance: WD/WN, no apparent distress, alert Cardiovascular: normal rate Respiratory/Chest: normal breath sounds, no respiratory distress Abdominal Exam: normal bowel sounds, non tender, soft Extremities: normal range of motion, non-tender Flori Echevarria NLuis Enrique Sep 05, 2017 10:44 SEVERO JACOME Sep 07, 2017 10:17
[2017-09-05] MEDS ORDERED: Promethazine 25mg tab ORAL PRN (11:30)
[2017-09-05] MEDS: D5 1/2NS 1,000 ML IV SCH ×2 (11:54→23:39)
[2017-09-05 12:00] VITALS: BP 117/56
--- NOTE | 2017-09-05 15:14 | General Progress Note ---
Assessment/Plan Problem List: (1) SOB (shortness of breath) ICD Codes: R06.02 - Shortness of breath SNOMED: 283281943 (2) Weak ICD Codes: R53.1 - Weakness SNOMED: 50729682 (3) Abdominal pain ICD Codes: R10.9 - Unspecified abdominal pain SNOMED: 12106538 (4) Anemia ICD Codes: D64.9 - Anemia, unspecified SNOMED: 545266004 (5) Renal insufficiency ICD Codes: N28.9 - Disorder of kidney and ureter, unspecified SNOMED: 932036150, 940877363 (6) COPD (chronic obstructive pulmonary disease) ICD Codes: J44.9 - Chronic obstructive pulmonary disease, unspecified SNOMED: 19346266 (7) Episode of generalized weakness ICD Codes: R53.1 - Weakness SNOMED: 38090567 Status: unchanged Assessment/Plan o2 pulm tx pain control ot pt diet cbc bmp am Subjective Constitutional: Reports: weakness Respiratory: Reports: shortness of breath Allergies: Coded Allergies: NO KNOWN ALLERGIES (Verified Allergy, Unknown, 09/04/17) All Systems: reviewed and negative except above Subjective o2nc sob weak Objective Last 24 Hour Vital Signs Date Time Temp Pulse Resp B/P (MAP) Pulse Ox O2 Delivery O2 Flow Rate FiO2 09/05/17 12:00 98.0 55 20 117/56 96 98.0 09/05/17 12:00 65 09/05/17 11:33 58 22 98 Nasal Cannula 1.0 24 09/05/17 11:28 58 18 98 Nasal Cannula 1.0 24 09/05/17 09:18 55 123/63 09/05/17 09:17 123/63 09/05/17 09:17 55 123/63 09/05/17 08:00 98.1 55 20 123/63 98 98.1 09/05/17 08:00 59 09/05/17 07:08 99 Nasal Cannula 2.0 28 09/05/17 07:08 Nasal Cannula 2.0 28 09/05/17 07:07 58 20 100 Nasal Cannula 2.0 28 09/05/17 06:59 56 20 100 Nasal Cannula 2.0 28 09/05/17 04:00 98.1 61 18 124/49 98 98.1 09/05/17 04:00 61 09/05/17 03:30 60 16 98 Room Air 21 09/05/17 03:30 64 20 99 Room Air 21 09/05/17 00:00 97.9 66 16 120/57 94 97.9 09/05/17 00:00 60 09/04/17 20:08 97.9 61 20 136/63 90 97.9 09/04/17 19:50 59 15 143/56 96 09/04/17 19:46 98.0 60 15 143/56 96 Nasal Cannula 2.0 21 98.0 09/04/17 18:33 98.0 60 18 130/79 99 Nasal Cannula 2.0 21 98.0 09/04/17 16:30 98.0 60 18 120/79 99 Nasal Cannula 2.0 98.0 09/04/17 15:55 56 18 100 Room Air 21 09/04/17 15:55 100 09/04/17 15:50 54 17 100 Room Air 21 09/04/17 15:50 54 17 Room Air 98 Intake and Output 09/04/17 09/05/17 19:00 07:00 Intake Total 600 ml 450 ml Balance 600 ml 450 ml Intake Oral 100 ml 0 ml IV Total 500 ml 450 ml # Voids 3 Laboratory Tests 09/04/17 15:25: White Blood Count 4.2L, Red Blood Count 3.52L, Hemoglobin 11.7L, Hematocrit 35.6L, Mean Corpuscular Volume 101H, Mean Corpuscular Hemoglobin 33.2H, Mean Corpuscular Hemoglobin Concent 32.8, Red Cell Distribution Width 11.3L, Platelet Count 227, Mean Platelet Volume 7.9, Neutrophils (%) (Auto) 55.8, Lymphocytes (%) (Auto) 27.6, Monocytes (%) (Auto) 12.6H, Eosinophils (%) (Auto) 3.0, Basophils (%) (Auto) 1.0, Sodium Level 136, Potassium Level 4.6, Chloride Level 100, Carbon Dioxide Level 29, Anion Gap 7, Blood Urea Nitrogen 18, Creatinine 2.5H, Estimat Glomerular Filtration Rate 23.4, Glucose Level 104, Lactic Acid Level 1.30, Calcium Level 9.2, Phosphorus Level 2.7, Magnesium Level 1.8, Total Bilirubin 0.3, Aspartate Amino Transf (AST/SGOT) 25, Alanine Aminotransferase (ALT/SGPT) 20, Alkaline Phosphatase 121H, Total Creatine Kinase 106, Creatine Kinase MB 1.0, Creatine Kinase MB Relative Index 0.9, Troponin I 0.005, Total Protein 7.5, Albumin 3.9, Globulin 3.6, Albumin/ Globulin Ratio 1.1 09/04/17 16:15: Urine Color Pale yellow, Urine Appearance Clear, Urine pH 7, Urine Specific [place] 1.010, Urine Protein Negative, Urine Glucose (UA) Negative, Urine Ketones Negative, Urine Occult Blood Negative, Urine Nitrite Negative, Urine Bilirubin Negative, Urine Urobilinogen Normal, Urine Leukocyte Esterase Negative 09/05/17 07:48: White Blood Count 3.7L, Red Blood Count 3.19L, Hemoglobin 11.0L, Hematocrit 32.7L, Mean Corpuscular Volume 103H, Mean Corpuscular Hemoglobin 34.5H, Mean Corpuscular Hemoglobin Concent 33.6, Red Cell Distribution Width 11.6, Platelet Count 200, Mean Platelet Volume 8.1, Neutrophils (%) (Auto) 57.2, Lymphocytes (% ) (Auto) 24.5, Monocytes (%) (Auto) 12.9H, Eosinophils (%) (Auto) 4.4H, Basophils (%) (Auto) 1.0, Sodium Level 139, Potassium Level 4.7, Chloride Level 102, Carbon Dioxide Level 29, Anion Gap 8, Blood Urea Nitrogen 16, Creatinine 2.6H, Estimat Glomerular Filtration Rate 22.4, Glucose Level 112H, Calcium Level 9.4, Total Bilirubin 0.4, Aspartate Amino Transf (AST/SGOT) 25, Alanine Aminotransferase (ALT/SGPT) 23, Alkaline Phosphatase 114, Total Protein 7.4, Albumin 3.6, Globulin 3.8, Albumin/Globulin Ratio 0.9L, Reticulocyte Count 1.3, Prothrombin Time 10.4, Prothromb Time International Ratio 1.0, Activated Partial Thromboplast Time 27, Iron Level 61, Total Iron Binding Capacity 254, Percent Iron Saturation 24, Unsaturated Iron Binding 193, Ferritin 224, Amylase Level 111, Lipase 205, Vitamin B12 Level 675, Folate 11.0, Thyroid Stimulating Hormone (TSH) 2.272, Free Thyroxine 0.59L Height (Feet): 5 Height (Inches): 11.00 Weight (Pounds): 210 General Appearance: lethargic EENT: normal ENT inspection Neck: normal alignment Cardiovascular: normal peripheral pulses, normal rate, regular rhythm Respiratory/Chest: decreased breath sounds Abdomen: normal bowel sounds, non tender, soft Extremities: normal inspection Edema: no edema noted Arm (L), no edema noted Arm (R), no edema noted Leg (L), no edema noted Leg (R), no edema noted Pedal (L), no edema noted Pedal (R), no edema noted Generalized Neurologic: responsive, motor weakness Skin: normal pigmentation, warm/dry LUMA MCCLENDON Sep 05, 2017 15:14
--- NOTE | 2017-09-05 15:58 | Consultation ---
History of Present Illness General Date patient seen: Sep 05, 2017 Chief Complaint: Generalized Weakness Referring physician: LUMA MCLCENDON Reason for Consultation: ABDOMINAL PAIN Present Illness HPI 67-year-old female with hx of COPD, Bronchiectasis, chronic lung disease, HTN, depression presented to ER of [facility] with dyspnea, generalized weakness and lethargy. She reports having multiple previous hospitalizations for similar symptoms. Allergies: Coded Allergies: NO KNOWN ALLERGIES (Verified Allergy, Unknown, 09/04/17) Medication History Scheduled Amlodipine Besylate* (Amlodipine Besylate*), 10 MG ORAL DAILY, (Reported) Aspirin (Aspirin EC), 81 MG ORAL DAILY, (Reported) Atorvastatin Calcium* (Atorvastatin Calcium*), 20 MG ORAL DAILY, (Reported) Baclofen (Baclofen), 20 MG ORAL QHS, (Reported) Carvedilol* (Carvedilol*), 12.5 MG ORAL EVERY 12 HOURS, (Reported) Esomeprazole Magnesium (Nexium), 40 MG ORAL DAILY, (Reported) Fluticasone Propionate (Flovent Diskus), 50 MCG INH EVERY 4 HOURS, (Reported) Gabapentin* (Gabapentin*), 600 MG ORAL QHS, (Reported) Ipratropium/Albuterol Sulfate (Combivent Inhaler), 2 PUFFS INH QID, (Reported) Losartan Potassium* (Cozaar*), 50 MG ORAL DAILY, (Reported) Mometasone Furoate (Nasonex), 1 SPRAY NASAL DAILY, (Reported) Multivitamin (Multivitamins), 1 CAP ORAL DAILY, (Reported) Omeprazole (Omeprazole), 40 MG ORAL DAILY, (Reported) Prednisolone Acetate (Prednisolone Acetate), 2 DROP BOTH EYES TWICE A DAY, ( Reported) Sertraline Hcl* (Zoloft*), 100 MG ORAL DAILY, (Reported) Spironolactone (Aldactone), 12.5 MG ORAL DAILY, (Reported) Trimethoprim/Sulfamethoxazole (Bactrim 400-80 mg Tablet), 1 TAB ORAL BID, ( Reported) Scheduled PRN Calcipotriene (Calcipotriene), 60 GM TP for Itching/Pruritis, (Reported) Doxepin HCl (Doxepin HCl), 45 GM TP for Itching, (Reported) Discontinued Medications Budesonide/Formoterol Fumarate (Symbicort 160-4.5 Mcg Inhaler), 1 PUFFS INH TWICE A DAY, (Reported) Discontinued Reason: MD discontinued med Lovastatin (Lovastatin), 40 MG ORAL DAILY, (Reported) Discontinued Reason: MD discontinued med Pentoxifylline* (Trental*), 400 MG ORAL TWICE A DAY, (Reported) Discontinued Reason: Pt stopped taking med Potassium Chloride (Potassium Chloride), 16 MEQ ORAL DAILY, (Reported) Discontinued Reason: Pt stopped taking med Terbinafine Hcl* (Lamisil*), 250 MG ORAL DAILY, (Reported) Discontinued Reason: Pt stopped taking med Tiotropium [place]* (Spiriva*), 1 PUFF INH DAILY, (Reported) Discontinued Reason: Pt stopped taking med Patient History Healthcare decision maker Resuscitation status Full Code Advanced Directive on File Past Medical/Surgical History Past Medical/Surgical History: (1) Bronchiectasis (2) COPD (chronic obstructive pulmonary disease) (3) 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) (4) Anemia Review of Systems Respiratory: Reports: shortness of breath Gastrointestinal: Reports: abdominal pain, nausea, vomiting Physical Exam General Appearance: WD/WN Lines, tubes and drains: peripheral HEENT: normocephalic, atraumatic Neck: non-tender, normal alignment Respiratory/Chest: chest wall non-tender, normal breath sounds Breasts: no masses Cardiovascular/Chest: normal peripheral pulses Abdomen: normal bowel sounds, non tender Extremities: normal range of motion, non-tender Last 24 Hour Vital Signs Date Time Temp Pulse Resp B/P (MAP) Pulse Ox O2 Delivery O2 Flow Rate FiO2 09/05/17 15:27 60 20 99 Nasal Cannula 1.0 24 09/05/17 12:00 98.0 55 20 117/56 96 98.0 09/05/17 12:00 65 09/05/17 11:33 58 22 98 Nasal Cannula 1.0 24 09/05/17 11:28 58 18 98 Nasal Cannula 1.0 24 09/05/17 09:18 55 123/63 09/05/17 09:17 123/63 09/05/17 09:17 55 123/63 09/05/17 08:00 98.1 55 20 123/63 98 98.1 09/05/17 08:00 59 09/05/17 07:08 99 Nasal Cannula 2.0 28 09/05/17 07:08 Nasal Cannula 2.0 28 09/05/17 07:07 58 20 100 Nasal Cannula 2.0 28 09/05/17 06:59 56 20 100 Nasal Cannula 2.0 28 09/05/17 04:00 98.1 61 18 124/49 98 98.1 09/05/17 04:00 61 09/05/17 03:30 60 16 98 Room Air 21 09/05/17 03:30 64 20 99 Room Air 21 09/05/17 00:00 97.9 66 16 120/57 94 97.9 09/05/17 00:00 60 09/04/17 20:08 97.9 61 20 136/63 90 97.9 09/04/17 19:50 59 15 143/56 96 09/04/17 19:46 98.0 60 15 143/56 96 Nasal Cannula 2.0 21 98.0 09/04/17 18:33 98.0 60 18 130/79 99 Nasal Cannula 2.0 21 98.0 09/04/17 16:30 98.0 60 18 120/79 99 Nasal Cannula 2.0 98.0 09/04/17 15:55 56 18 100 Room Air 21 09/04/17 15:55 100 Intake and Output 09/04/17 09/05/17 19:00 07:00 Intake Total 600 ml 450 ml Balance 600 ml 450 ml Intake Oral 100 ml 0 ml IV Total 500 ml 450 ml # Voids 3 Laboratory Tests Test 09/04/17 16:15 09/05/17 07:48 Urine Color Pale yellow Urine Appearance Clear Urine pH 7 (4.5-8.0) Urine Specific [place] 1.010 (1.005-1.035) Urine Protein Negative (NEGATIVE) Urine Glucose (UA) Negative (NEGATIVE) Urine Ketones Negative (NEGATIVE) Urine Occult Blood Negative (NEGATIVE) Urine Nitrite Negative (NEGATIVE) Urine Bilirubin Negative (NEGATIVE) Urine Urobilinogen Normal MG/DL (0.0-1.0) Urine Leukocyte Esterase Negative (NEGATIVE) White Blood Count 3.7 K/UL (4.8-10.8) L Red Blood Count 3.19 M/UL (4.20-5.40) L Hemoglobin 11.0 G/DL (12.0-16.0) L Hematocrit 32.7 % (37.0-47.0) L Mean Corpuscular Volume 103 FL (80-99) H Mean Corpuscular Hemoglobin 34.5 PG (27.0-31.0) H Mean Corpuscular Hemoglobin Concent 33.6 G/DL (32.0-36.0) Red Cell Distribution Width 11.6 % (11.6-14.8) Platelet Count 200 K/UL (150-450) Mean Platelet Volume 8.1 FL (6.5-10.1) Neutrophils (%) (Auto) 57.2 % (45.0-75.0) Lymphocytes (%) (Auto) 24.5 % (20.0-45.0) Monocytes (%) (Auto) 12.9 % (1.0-10.0) H Eosinophils (%) (Auto) 4.4 % (0.0-3.0) H Basophils (%) (Auto) 1.0 % (0.0-2.0) Reticulocyte Count 1.3 % (0.0-2.0) Prothrombin Time 10.4 SEC (9.30-11.50) Prothromb Time International Ratio 1.0 (0.9-1.1) Activated Partial Thromboplast Time 27 SEC (23-33) Sodium Level 139 MMOL/L (136-145) Potassium Level 4.7 MMOL/L (3.5-5.1) Chloride Level 102 MMOL/L (98-107) Carbon Dioxide Level 29 MMOL/L (21-32) Anion Gap 8 mmol/L (5-15) Blood Urea Nitrogen 16 mg/dL (7-18) Creatinine 2.6 MG/DL (0.55-1.30) H Estimat Glomerular Filtration Rate 22.4 mL/min (>60) Glucose Level 112 MG/DL (74-106) H Calcium Level 9.4 MG/DL (8.5-10.1) Iron Level 61 ug/dL (50-175) Total Iron Binding Capacity 254 ug/dL (250-450) Percent Iron Saturation 24 % (15-50) Unsaturated Iron Binding 193 ug/dL (112-346) Ferritin 224 NG/ML (8-388) Total Bilirubin 0.4 MG/DL (0.2-1.0) Aspartate Amino Transf (AST/SGOT) 25 U/L (15-37) Alanine Aminotransferase (ALT/SGPT) 23 U/L (12-78) Alkaline Phosphatase 114 U/L (46-116) Total Protein 7.4 G/DL (6.4-8.2) Albumin 3.6 G/DL (3.4-5.0) Globulin 3.8 g/dL Albumin/Globulin Ratio 0.9 (1.0-2.7) L Amylase Level 111 U/L (25-115) Lipase 205 U/L (73-393) Vitamin B12 Level 675 PG/ML (193-986) Folate 11.0 NG/ML (8.6-58.9) Thyroid Stimulating Hormone (TSH) 2.272 uiU/mL (0.358-3.740) Free Thyroxine 0.59 NG/DL (0.76-1.46) L Height (Feet): 5 Height (Inches): 11.00 Weight (Pounds): 210 Medications Current Medications Medications (Trade) Dose Ordered Sig/Suraj Route PRN Reason Start Time Stop Time Status Last Admin Dose Admin Acetaminophen (Tylenol) 650 mg Q4H PRN ORAL fever 09/04/17 22:15 10/04/17 22:14 Al Hydroxide/Mg Hydroxide (Mylanta II) 30 ml Q6H PRN ORAL dyspepsia 09/04/17 22:15 10/04/17 22:14 Amlodipine Besylate (Norvasc) 10 mg DAILY ORAL 09/05/17 09:00 10/05/17 08:59 09/05/17 09:18 Atorvastatin Calcium (Lipitor) 20 mg DAILY ORAL 09/05/17 09:00 10/05/17 08:59 09/05/17 09:17 Carvedilol (Coreg) 12.5 mg EVERY 12 HOURS ORAL 09/05/17 09:00 10/05/17 08:59 09/05/17 09:17 Dextrose (Dextrose 50%) STAT PRN IV Hypoglycemia 09/04/17 22:15 10/04/17 22:14 Dextrose/Sodium Chloride 1,000 ml @ 75 mls/hr [id number] IV 09/04/17 22:02 10/04/17 22:01 09/05/17 11:54 Diphenhydramine HCl (Benadryl) 25 mg Q6H PRN ORAL Itching/Pruritis 09/04/17 22:15 10/04/17 22:14 Gabapentin (Neurontin) 600 mg QHS ORAL 09/05/17 21:00 10/05/17 20:59 Heparin Sodium (Porcine) (Heparin 5000 units/ml) 5,000 units EVERY 12 HOURS SUBQ 09/05/17 09:00 10/05/17 08:59 09/05/17 09:20 Lorazepam (Ativan 2mg/ml 1ml) 1 mg EVERY 4 HOURS PRN IV agitation 09/04/17 22:15 09/11/17 22:14 Losartan Potassium (Cozaar) 50 mg DAILY ORAL 09/05/17 09:00 10/05/17 08:59 09/05/17 09:17 Morphine Sulfate (Morphine Sulfate) 2 mg EVERY 4 HOURS PRN IVP severe Pain (Pain Scale 7-10) 09/04/17 22:15 09/11/17 22:14 Nitroglycerin (Ntg) 0.4 mg Q5M PRN SL Prn Chest Pain 09/04/17 22:15 10/04/17 22:14 Ondansetron HCl (Zofran) 4 mg Q6H PRN IVP Nausea & Vomiting 09/05/17 11:30 10/04/17 22:14 Pantoprazole (Protonix) 40 mg DAILY IV 09/05/17 09:00 10/05/17 08:59 09/05/17 09:17 Polyethylene Glycol (Miralax) 17 gm HSPRN PRN ORAL Constipation 09/04/17 22:15 10/04/17 22:14 Promethazine HCl (Phenergan) 25 mg EVERY 8 HOURS PRN IV refractory nausea 09/04/17 22:15 10/04/17 22:14 Promethazine HCl (Phenergan) 25 mg TID PRN ORAL Nausea & Vomiting 09/05/17 11:30 10/05/17 11:29 Promethazine HCl/ Codeine (Phenergan with Codeine) 5 ml Q4H PRN ORAL For Cough 09/04/17 22:15 10/04/17 22:14 Sertraline HCl (Zoloft) 100 mg DAILY ORAL 09/05/17 09:00 10/05/17 08:59 09/05/17 09:17 Temazepam (Restoril) 15 mg HSPRN PRN ORAL Insomnia 09/04/17 22:15 3/27/18 22:14 Assessment/Plan Problem List: (1) Intractable nausea and vomiting ICD Codes: R11.2 - Nausea with vomiting, unspecified SNOMED: 455215577 (2) COPD (chronic obstructive pulmonary disease) ICD Codes: J44.9 - Chronic obstructive pulmonary disease, unspecified SNOMED: 09586558 (3) Bronchiectasis ICD Codes: J47.9 - Bronchiectasis, uncomplicated SNOMED: 79492397 (4) SOB (shortness of breath) ICD Codes: R06.02 - Shortness of breath SNOMED: 736342336 (5) Episode of generalized weakness ICD Codes: R53.1 - Weakness SNOMED: 31226839 Assessment/Plan respiratory treatment check sputum titrate fio2 to sat of 92% GI evaluation symptomatic treatment Montse Hendrix MD Sep 05, 2017 15:58
[2017-09-05 16:00] VITALS: BP 136/56
--- NOTE | 2017-09-05 16:58 | Cardiology Report ---
APPROVED REPORT EKG Measurement Heart [id number] HI [id number] Sinus bradycardia Otherwise normal ECG
[2017-09-05 20:00] VITALS: BP 137/60
[2017-09-05] MEDS ORDERED: Nitroglycerin Subl 0.4mg tab SL PRN (23:50)
[2017-09-06 00:41] VITALS: BP 132/55
[2017-09-06] MEDS: D5 1/2NS 1,000 ML IV SCH ×2 (00:54→12:50)
[2017-09-06] MEDS ORDERED: Morphine Sulfate 2mg/ml Inj IVP PRN (01:00)
[2017-09-06] MEDS ORDERED: LORazepam Inj 2mg/ml 1ml IV PRN (01:00)
[2017-09-06] MEDS ORDERED: Promethazine/Codeine 5ml UD ORAL PRN (02:15)
[2017-09-06 04:00] VITALS: BP 140/63
[2017-09-06] MEDS ORDERED: Mylanta II UD 30ml ORAL PRN (04:15)
[2017-09-06 08:00] VITALS: BP 135/60
[2017-09-06 08:44] LABS: BASOPHILS % (AUTO) 0.8 % (0.0-2.0); HEMATOCRIT 33.9 % (37.0-47.0); HEMOGLOBIN 11.1 G/DL (12.0-16.0); LYMPHOCYTES % (AUTO) 27.1 % (20.0-45.0); MEAN CORPUSCULAR VOLUME 103 FL (80-99); MONOCYTES % (AUTO) 11.9 % (1.0-10.0); NEUTROPHILS % (AUTO) 53.2 % (45.0-75.0); PLATELET COUNT 187 K/UL (150-450); RED BLOOD COUNT 3.29 M/UL (4.20-5.40); RED CELL DISTRIBUTION WIDTH 11.5 % (11.6-14.8); WHITE BLOOD COUNT 3.5 K/UL (4.8-10.8)
[2017-09-06] MEDS ORDERED: Promethazine 25mg tab ORAL PRN (09:00)
[2017-09-06] MEDS: Heparin 5000 units/ml inj SUBQ SCH ×2 (09:08→21:16)
[2017-09-06 09:09] LABS: ANION GAP 9 mmol/L (5-15); BLOOD UREA NITROGEN 18 mg/dL (7-18); CALCIUM 9.2 MG/DL (8.5-10.1); CARBON DIOXIDE 25 MMOL/L (21-32); CHLORIDE 105 MMOL/L (98-107); CREATININE 2.5 MG/DL (0.55-1.30); POTASSIUM 4.5 MMOL/L (3.5-5.1); SODIUM 139 MMOL/L (136-145)
[2017-09-06] MEDS: Pantoprazole Inj IV SCH (09:09)
[2017-09-06] MEDS: Carvedilol 12.5mg tab ORAL SCH ×2 (09:09→21:16)
[2017-09-06] MEDS: Losartan 50mg tab ORAL SCH (09:10)
[2017-09-06] MEDS: Sertraline 100mg tab ORAL SCH (09:10)
[2017-09-06] MEDS ORDERED: Docusate 100mg cap ORAL PRN (11:00)
--- NOTE | 2017-09-06 11:02 | GI Progress Note ---
Assessment/Plan Problems: (1) Alkaline phosphatase elevation ICD Codes: R74.8 - Abnormal levels of other serum enzymes SNOMED: 916153806 (2) Renal insufficiency ICD Codes: N28.9 - Disorder of kidney and ureter, unspecified SNOMED: 518475645, 642724384 (3) Anemia ICD Codes: D64.9 - Anemia, unspecified SNOMED: 115148635 (4) Episode of generalized weakness ICD Codes: R53.1 - Weakness SNOMED: 89566935 (5) 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) ICD Codes: R79.89 - Other specified abnormal findings of blood chemistry SNOMED: 414168107, 515919082 Status: stable Status Narrative Discussed with Dr. Jacome. Assessment/Plan s/p EUS 2012 >> unremarkable Hx of CA19-9 elevation CXR reviewed >> no acute process abdominal U/S reviewed >> mild right hydronephrosis IV/PO hydration renal diet promethazine prn anemia work up OB stool r/o GI bleed monitor H&H, prn transfusions bowel regime ppi fu labs, CA19-9 outpatient GI procedures Subjective Subjective dizzy tolerating diet Objective Last 24 Hour Vital Signs Date Time Temp Pulse Resp B/P (MAP) Pulse Ox O2 Delivery O2 Flow Rate FiO2 09/06/17 09:10 135/60 09/06/17 09:10 64 135/60 09/06/17 09:09 64 135/60 09/06/17 08:00 97.7 64 18 135/60 93 97.7 09/06/17 07:30 98 Nasal Cannula 2.0 28 09/06/17 07:30 Nasal Cannula 2.0 28 09/06/17 05:40 Nasal Cannula 2.0 09/06/17 04:00 98.4 58 20 140/63 93 Room Air 98.4 09/06/17 02:27 Nasal Cannula 09/06/17 02:27 Nasal Cannula 09/06/17 00:41 98.1 60 18 132/55 92 Nasal Cannula 2.0 98.1 09/05/17 23:02 62 22 99 Nasal Cannula 2.0 28 09/05/17 23:02 65 20 99 Nasal Cannula 2.0 28 09/05/17 21:31 62 137/60 09/05/17 21:06 98 Nasal Cannula 2.0 28 09/05/17 20:00 96.6 62 18 137/60 92 Nasal Cannula 2.0 96.6 09/05/17 19:00 Nasal Cannula 2.0 28 09/05/17 19:00 60 20 97 Nasal Cannula 2.0 28 09/05/17 19:00 62 22 97 Nasal Cannula 2.0 28 09/05/17 16:00 56 09/05/17 16:00 98.0 56 19 136/56 92 Nasal Cannula 2.0 98.0 09/05/17 15:27 60 20 99 Nasal Cannula 1.0 24 09/05/17 12:00 98.0 55 20 117/56 96 98.0 09/05/17 12:00 65 09/05/17 11:33 58 22 98 Nasal Cannula 1.0 24 09/05/17 11:28 58 18 98 Nasal Cannula 1.0 24 Intake and Output 09/05/17 09/06/17 19:00 07:00 Intake Total 1125 ml 450 ml Output Total 1100 ml Balance 1125 ml -650 ml Intake Oral 600 ml IV Total 525 ml 450 ml Output Urine Total 1100 ml # Voids 3 Laboratory Tests Test 09/06/17 07:35 White Blood Count 3.5 K/UL (4.8-10.8) L Red Blood Count 3.29 M/UL (4.20-5.40) L Hemoglobin 11.1 G/DL (12.0-16.0) L Hematocrit 33.9 % (37.0-47.0) L Mean Corpuscular Volume 103 FL (80-99) H Mean Corpuscular Hemoglobin 33.6 PG (27.0-31.0) H Mean Corpuscular Hemoglobin Concent 32.6 G/DL (32.0-36.0) Red Cell Distribution Width 11.5 % (11.6-14.8) L Platelet Count 187 K/UL (150-450) Mean Platelet Volume 7.6 FL (6.5-10.1) Neutrophils (%) (Auto) 53.2 % (45.0-75.0) Lymphocytes (%) (Auto) 27.1 % (20.0-45.0) Monocytes (%) (Auto) 11.9 % (1.0-10.0) H Eosinophils (%) (Auto) 7.0 % (0.0-3.0) H Basophils (%) (Auto) 0.8 % (0.0-2.0) Sodium Level 139 MMOL/L (136-145) Potassium Level 4.5 MMOL/L (3.5-5.1) Chloride Level 105 MMOL/L (98-107) Carbon Dioxide Level 25 MMOL/L (21-32) Anion Gap 9 mmol/L (5-15) Blood Urea Nitrogen 18 mg/dL (7-18) Creatinine 2.5 MG/DL (0.55-1.30) H Estimat Glomerular Filtration Rate 23.4 mL/min (>60) Glucose Level 127 MG/DL (74-106) H Calcium Level 9.2 MG/DL (8.5-10.1) Height (Feet): 5 Height (Inches): 11.00 Weight (Pounds): 210 General Appearance: WD/WN, no apparent distress, alert Cardiovascular: normal rate Respiratory/Chest: normal breath sounds, no respiratory distress Abdominal Exam: normal bowel sounds, non tender, soft Extremities: normal range of motion, non-tender Flori Echevarria N.P. Sep 06, 2017 11:01
--- NOTE | 2017-09-06 11:33 | General Progress Note ---
Progress Note Progress Note patient seen and examined full consult dictated NARAYAN RAMIREZ Sep 06, 2017 11:33
[2017-09-06 12:00] VITALS: BP 136/59
[2017-09-06] MEDS: Pred Forte 1% Opth Susp 1ml BOTH EYES SCH ×2 (12:44→17:07)
--- NOTE | 2017-09-06 14:43 | General Progress Note ---
Assessment/Plan Problem List: (1) SOB (shortness of breath) ICD Codes: R06.02 - Shortness of breath SNOMED: 681808509 (2) Weak ICD Codes: R53.1 - Weakness SNOMED: 84896045 (3) Abdominal pain ICD Codes: R10.9 - Unspecified abdominal pain SNOMED: 50538396 (4) Anemia ICD Codes: D64.9 - Anemia, unspecified SNOMED: 453411761 (5) Renal insufficiency ICD Codes: N28.9 - Disorder of kidney and ureter, unspecified SNOMED: 120514512, 394897627 (6) COPD (chronic obstructive pulmonary disease) ICD Codes: J44.9 - Chronic obstructive pulmonary disease, unspecified SNOMED: 38311670 (7) Episode of generalized weakness ICD Codes: R53.1 - Weakness SNOMED: 02528407 Status: unchanged Assessment/Plan o2 pulm tx pain control ot pt diet cbc bmp am Subjective Constitutional: Reports: weakness Respiratory: Reports: shortness of breath Allergies: Coded Allergies: NO KNOWN ALLERGIES (Verified Allergy, Unknown, 09/04/17) All Systems: reviewed and negative except above Subjective o2nc sob weak Objective Last 24 Hour Vital Signs Date Time Temp Pulse Resp B/P (MAP) Pulse Ox O2 Delivery O2 Flow Rate FiO2 09/06/17 12:00 97.7 56 20 136/59 96 97.7 09/06/17 09:10 135/60 09/06/17 09:10 64 135/60 09/06/17 09:09 64 135/60 09/06/17 08:00 97.7 64 18 135/60 93 97.7 09/06/17 07:30 98 Nasal Cannula 2.0 28 09/06/17 07:30 Nasal Cannula 2.0 28 09/06/17 05:40 Nasal Cannula 2.0 09/06/17 04:00 98.4 58 20 140/63 93 Room Air 98.4 09/06/17 02:27 Nasal Cannula 09/06/17 02:27 Nasal Cannula 09/06/17 00:41 98.1 60 18 132/55 92 Nasal Cannula 2.0 98.1 09/05/17 23:02 62 22 99 Nasal Cannula 2.0 28 09/05/17 23:02 65 20 99 Nasal Cannula 2.0 28 3/21/18 21:31 62 137/60 09/05/17 21:06 98 Nasal Cannula 2.0 28 09/05/17 20:00 96.6 62 18 137/60 92 Nasal Cannula 2.0 96.6 09/05/17 19:00 Nasal Cannula 2.0 28 09/05/17 19:00 60 20 97 Nasal Cannula 2.0 28 09/05/17 19:00 62 22 97 Nasal Cannula 2.0 28 09/05/17 16:00 56 09/05/17 16:00 98.0 56 19 136/56 92 Nasal Cannula 2.0 98.0 09/05/17 15:27 60 20 99 Nasal Cannula 1.0 24 Intake and Output 09/05/17 09/06/17 19:00 07:00 Intake Total 1125 ml 450 ml Output Total 1100 ml Balance 1125 ml -650 ml Intake Oral 600 ml IV Total 525 ml 450 ml Output Urine Total 1100 ml # Voids 3 Laboratory Tests 09/06/17 06:30: Angiotensin Converting Enzyme [Pending] 09/06/17 07:35: White Blood Count 3.5L, Red Blood Count 3.29L, Hemoglobin 11.1L, Hematocrit 33.9L, Mean Corpuscular Volume 103H, Mean Corpuscular Hemoglobin 33.6H, Mean Corpuscular Hemoglobin Concent 32.6, Red Cell Distribution Width 11.5L, Platelet Count 187, Mean Platelet Volume 7.6, Neutrophils (%) (Auto) 53.2, Lymphocytes (%) (Auto) 27.1, Monocytes (%) (Auto) 11.9H, Eosinophils (%) (Auto) 7.0H, Basophils (%) (Auto) 0.8, Sodium Level 139, Potassium Level 4.5, Chloride Level 105, Carbon Dioxide Level 25, Anion Gap 9, Blood Urea Nitrogen 18, Creatinine 2.5H, Estimat Glomerular Filtration Rate 23.4, Glucose Level 127H, Calcium Level 9.2 Height (Feet): 5 Height (Inches): 11.00 Weight (Pounds): 210 General Appearance: lethargic EENT: normal ENT inspection Neck: normal alignment Cardiovascular: normal peripheral pulses, normal rate, regular rhythm Respiratory/Chest: decreased breath sounds Abdomen: normal bowel sounds, non tender, soft Extremities: normal inspection Edema: no edema noted Arm (L), no edema noted Arm (R), no edema noted Leg (L), no edema noted Leg (R), no edema noted Pedal (L), no edema noted Pedal (R), no edema noted Generalized Neurologic: motor weakness Skin: normal pigmentation, warm/dry LUMA MCCLENDON Sep 06, 2017 14:43
[2017-09-06 16:00] VITALS: BP 140/63
--- NOTE | 2017-09-06 18:16 | History and Physical Report ---
APPROXIMATE TIME: 3 p.m. EVENING ANCHOR: 1. Montse Hendrix M.D. 2. Nicholas Jacome M.D. CHIEF COMPLAINT: Shortness of breath, wheezing, weakness, nausea, vomiting, diarrhea, and abdominal pain. BRIEF HISTORY: This is a 67-year-old female, who lives at home, presents to [facility] with history of increased shortness of breath for the last 2 days, slight wheezing, getting little weaker. She did have nausea, vomiting, and diarrhea for the last couple days as well. Currently, she is slight short of breath, weak in the ER gurney. No complaint. REVIEW OF SYSTEMS: No chest pain. Slight shortness of breath. Slight nausea, vomiting, and diarrhea. PAST MEDICAL HISTORY: Includes hypertension and COPD. PAST SURGICAL HISTORY: Unknown. MEDICATIONS: Include Zofran and IV fluids for now. We will obtain home medication list shortly. ALLERGIES: Denies. SOCIAL HISTORY: The patient is slightly weak right now. PHYSICAL EXAMINATION: VITAL SIGNS: Show Temperature is 98 degrees, pulse 57, respirations 20, and blood pressure 137/56. CARDIOVASCULAR: No murmur. LUNGS: Poor exchange and slight wheeze bilaterally. ABDOMEN: Bowel sound distant. Soft. No guarding. No rigidity. No rebound. Slightly tender. EXTREMITIES: Show no cyanosis, clubbing, or edema. NEUROLOGIC: The patient moves all extremities. Slightly weak. LABORATORY DATA: Pending. ASSESSMENT: 1. Shortness of breath. 2. Wheezing. 3. Weakness. 4. Nausea, vomiting, diarrhea, and abdominal pain. 5. Hypertension. 6. Chronic obstructive pulmonary disease. PLAN: O2 and pulmonary treatment. We will check laboratories . Blood pressure and pain control. Antiemetics p.r.n. Intravenous fluids. OT, PT, and dietary evaluation. CBC and BMP in the morning. Dr. Hendrix and Dr. Jacome to consult. We will continue to follow this patient medically. Cristi Sawyer D.O. DR: Facundo JOB#: [id number] CC:
[2017-09-06 18:34] LABS: APPEARANCE,URINE CLEAR; BILIRUBIN, URINE NEGATIVE (NEGATIVE); COLOR,URINE PALE YELLOW; GLUCOSE, URINE (UA) NEGATIVE (NEGATIVE); KETONES,URINE NEGATIVE (NEGATIVE); LEUKOCYTE ESTERASE ,URINE NEGATIVE (NEGATIVE); NITRITE,URINE NEGATIVE (NEGATIVE); PH,URINE 6.5 (4.5-8.0); PROTEIN,URINE NEGATIVE (NEGATIVE); UROBILINOGEN,URINE NORMAL MG/DL (0.0-1.0)
[2017-09-06 20:36] VITALS: BP 138/62
[2017-09-06] MEDS ORDERED: Miralax 17gm pkt ORAL SCH (21:00)
[2017-09-06] MEDS ORDERED: Miralax 17gm pkt ORAL PRN (22:15)
--- NOTE | 2017-09-06 22:26 | Pulmonology Progress Note ---
Assessment/Plan Problems: (1) Intractable nausea and vomiting (2) COPD (chronic obstructive pulmonary disease) (3) Bronchiectasis (4) SOB (shortness of breath) (5) Episode of generalized weakness Assessment/Plan respiratory treatment check sputum titrate fio2 awaiting renal studies f/u GI recommendations Subjective ROS Limited/Unobtainable: No Constitutional: Reports: no symptoms HEENT: Repors: no symptoms Respiratory: Reports: no symptoms Allergies: Coded Allergies: NO KNOWN ALLERGIES (Verified Allergy, Unknown, 09/04/17) Objective Last 24 Hour Vital Signs Date Time Temp Pulse Resp B/P (MAP) Pulse Ox O2 Delivery O2 Flow Rate FiO2 09/06/17 21:16 78 138/62 09/06/17 20:36 98.2 78 18 138/62 94 Nasal Cannula 2.0 98.2 09/06/17 19:22 98 Nasal Cannula 2.0 28 09/06/17 19:22 Nasal Cannula 2.0 28 09/06/17 16:00 98.5 58 20 140/63 93 98.5 09/06/17 12:00 97.7 56 20 136/59 96 97.7 09/06/17 09:10 135/60 09/06/17 09:10 64 135/60 09/06/17 09:09 64 135/60 09/06/17 08:00 97.7 64 18 135/60 93 97.7 09/06/17 07:30 98 Nasal Cannula 2.0 28 09/06/17 07:30 Nasal Cannula 2.0 09/06/17 05:40 Nasal Cannula 2.0 09/06/17 04:00 98.4 58 20 140/63 93 Room Air 98.4 09/06/17 02:27 Nasal Cannula 09/06/17 02:27 Nasal Cannula 09/06/17 00:41 98.1 60 18 132/55 92 Nasal Cannula 2.0 98.1 09/05/17 23:02 62 22 99 Nasal Cannula 2.0 28 09/05/17 23:02 65 20 99 Nasal Cannula 2.0 28 Intake and Output 09/05/17 09/06/17 19:00 07:00 Intake Total 1125 ml 450 ml Output Total 1100 ml Balance 1125 ml -650 ml Intake Oral 600 ml IV Total 525 ml 450 ml Output Urine Total 1100 ml # Voids 3 Objective General Appearance: WD/WN Lines, tubes and drains: peripheral HEENT: normocephalic, atraumatic Neck: non-tender, normal alignment Respiratory/Chest: chest wall non-tender, rhonchi Breasts: no masses Cardiovascular/Chest: normal peripheral pulses Abdomen: normal bowel sounds, non tender Extremities: normal range of motion, non-tender Microbiology Date/Time Source Procedure Growth Status 09/04/17 15:35 Blood Blood Culture - Preliminary NO GROWTH AFTER 24 HOURS Resulted 09/04/17 15:25 Blood Blood Culture - Preliminary NO GROWTH AFTER 24 HOURS Resulted 09/05/17 01:30 Sputum Gram Stain - Final Resulted 09/05/17 01:30 Sputum Sputum Culture - Preliminary NORMAL UPPER RESPIRATORY JOSE L AT 24 ... Resulted Laboratory Tests 09/06/17 06:30: Angiotensin Converting Enzyme [Pending] 09/06/17 07:35: White Blood Count 3.5L, Red Blood Count 3.29L, Hemoglobin 11.1L, Hematocrit 33.9L, Mean Corpuscular Volume 103H, Mean Corpuscular Hemoglobin 33.6H, Mean Corpuscular Hemoglobin Concent 32.6, Red Cell Distribution Width 11.5L, Platelet Count 187, Mean Platelet Volume 7.6, Neutrophils (%) (Auto) 53.2, Lymphocytes (%) (Auto) 27.1, Monocytes (%) (Auto) 11.9H, Eosinophils (%) (Auto) 7.0H, Basophils (%) (Auto) 0.8, Sodium Level 139, Potassium Level 4.5, Chloride Level 105, Carbon Dioxide Level 25, Anion Gap 9, Blood Urea Nitrogen 18, Creatinine 2.5H, Estimat Glomerular Filtration Rate 23.4, Glucose Level 127H, Calcium Level 9.2 09/06/17 18:20: Urine Color Pale yellow, Urine Appearance Clear, Urine pH 6.5, Urine Specific [place] 1.005, Urine Protein Negative, Urine Glucose (UA) Negative, Urine Ketones Negative, Urine Occult Blood Negative, Urine Nitrite Negative, Urine Bilirubin Negative, Urine Urobilinogen Normal, Urine Leukocyte Esterase Negative , Urine RBC 0-2, Urine WBC 0-2, Urine Squamous Epithelial Cells None, Urine Bacteria None, Urine Eosinophils None seen, Urine Random Creatinine [Pending], Urine Random Microalbumin [Pending], Urine Random Total Protein 5, Urine Random Sodium 29, Urine Creatinine 60.9, Urine Microalbumin/Creatinine Ratio [Pending] Current Medications Medications (Trade) Dose Ordered Sig/Suraj Route PRN Reason Start Time Stop Time Status Last Admin Dose Admin Acetaminophen (Tylenol) 650 mg Q4H PRN ORAL fever 09/06/17 02:15 10/04/17 22:14 Al Hydroxide/Mg Hydroxide (Mylanta II) 30 ml Q6H PRN ORAL dyspepsia 09/06/17 04:15 10/04/17 22:14 Amlodipine Besylate (Norvasc) 10 mg DAILY ORAL 09/06/17 09:00 10/05/17 08:59 09/06/17 09:10 Atorvastatin Calcium (Lipitor) 20 mg DAILY ORAL 09/06/17 09:00 10/05/17 08:59 09/06/17 09:10 Carvedilol (Coreg) 12.5 mg EVERY 12 HOURS ORAL 09/06/17 09:00 10/05/17 08:59 09/06/17 21:16 Dextrose (Dextrose 50%) STAT PRN IV Hypoglycemia 09/06/17 22:15 10/04/17 22:14 Dextrose/Sodium Chloride 1,000 ml @ 75 mls/hr [id number] IV 09/05/17 23:45 10/04/17 22:01 09/06/17 12:50 Diphenhydramine HCl (Benadryl) 25 mg Q6H PRN ORAL Itching/Pruritis 09/06/17 04:15 10/04/17 22:14 Docusate Sodium (Colace) 100 mg TID PRN ORAL Constipation 09/06/17 11:00 10/06/17 10:59 Gabapentin (Neurontin) 600 mg QHS ORAL 09/06/17 21:00 10/05/17 20:59 09/06/17 21:16 Heparin Sodium (Porcine) (Heparin 5000 units/ml) 5,000 units EVERY 12 HOURS SUBQ 09/06/17 09:00 10/05/17 08:59 09/06/17 21:16 Lorazepam (Ativan 2mg/ml 1ml) 1 mg Q4H PRN IV agitation 09/06/17 01:00 09/13/17 00:59 Losartan Potassium (Cozaar) 50 mg DAILY ORAL 09/06/17 09:00 10/05/17 08:59 09/06/17 09:10 Morphine Sulfate (Morphine Sulfate) 2 mg Q4H PRN IVP severe Pain (Pain Scale 7-10) 09/06/17 01:00 09/13/17 00:59 Nitroglycerin (Ntg) 0.4 mg Q5M PRN SL Prn Chest Pain 09/05/17 23:50 10/04/17 22:14 Ondansetron HCl (Zofran) 4 mg Q6H PRN IVP Nausea & Vomiting 09/06/17 05:30 10/04/17 22:14 Pantoprazole (Protonix) 40 mg DAILY IV 09/06/17 09:00 10/05/17 08:59 09/06/17 09:09 Polyethylene Glycol (Miralax) 17 gm BEDTIME ORAL 09/06/17 21:00 10/06/17 20:59 09/06/17 21:16 Prednisolone Acetate (Pred Forte) 2 drop BID BOTH EYES 09/06/17 09:00 10/06/17 08:59 09/06/17 17:07 Promethazine HCl (Phenergan) 25 mg TID PRN ORAL Nausea & Vomiting 09/06/17 09:00 10/05/17 11:29 09/06/17 11:21 Promethazine HCl/ Codeine (Phenergan with Codeine) 5 ml Q4H PRN ORAL For Cough 09/06/17 02:15 10/04/17 22:14 Sertraline HCl (Zoloft) 100 mg DAILY ORAL 09/06/17 09:00 10/05/17 08:59 09/06/17 09:10 Temazepam (Restoril) 15 mg HSPRN PRN ORAL Insomnia 09/06/17 22:15 09/11/17 22:14 Montse Hendrix MD Sep 06, 2017 22:25
[2017-09-07] VITALS: BP 116/74
--- NOTE | 2017-09-07 01:31 | Consultation ---
DATE OF CONSULTATION: 09/06/2017 NOTE: POOR AUDIO NEPHROLOGY CONSULTATION CONSULTING PHYSICIAN: Selena Howard M.D. REFERRING PHYSICIAN: Cristi Sawyer D.O. REASON FOR CONSULTATION: Acute on chronic renal failure. HISTORY OF PRESENT ILLNESS: The patient is a pleasant 67-year-old female with past medical history significant for history of chronic kidney disease, the last creatinine I have from her is from 2012. At that time, she had a creatinine of 2. She had multiple admissions with diagnosis of bronchitis in the past. She was even admitted for coughing up blood and she was worked up for TB and she presented to [facility] for evaluation of increasing generalized weakness and lethargy. The patient also complained of increasing abdominal pain, nausea, vomiting, and was admitted on Medical/Surgical bed, found to have an elevation in creatinine to 2.5. I was called for management of renal disease and electrolyte imbalance. PAST MEDICAL HISTORY: 1. History of acute renal failure in the past. 2. History of chronic kidney disease. 3. History of COPD. 4. History of hypertension. 5. History of CAD. 6. History of bronchiectasis. 7. History of C. difficile. 8. History of psychiatric disease. 9. History of mitral valve prolapse. MEDICATIONS: Her medications are including 1. 2 puffs daily. 2. Albuterol and Atrovent p.r.n. shortness of breath. 3. Amlodipine 10 mg p.o. daily. 4. Flovent 1 puff b.i.d. 5. Zoloft 100 mg p.o. daily. 6. Carvedilol 12.5 mg daily. 7. Potassium chloride 80 mEq p.o. daily. 8. Lovastatin 40 mg p.o. daily. 9. 40 mg daily. 10. Losartan 50 mg p.o. daily. 11. Aspirin 81 mg p.o. daily. 12. Prednisone 5 mg p.o. daily. ALLERGIES: No known drug allergies. SOCIAL HISTORY: She lives at home. There is no current history of tobacco, alcohol, or drug use. FAMILY HISTORY: Negative for any history of premature heart disease. REVIEW OF SYSTEMS: GENERAL: She is complaining of generalized weakness. Denied any fever, chills, or night sweats. HEAD AND NECK: Denies any dysphagia, odynophagia, blurry vision, headache, or neck stiffness. PULMONARY: Complained of mild shortness of breath, cough, and chronic sputum. CARDIOVASCULAR: Denies any current chest pain or palpitation. GASTROINTESTINAL: Complained of nausea and vomiting on admission. Currently, denies having any nausea, vomiting, or abdominal pain. GENITOURINARY: Denies any dysuria, frequency, or hematuria. MUSCULOSKELETAL: Denies any weakness or numbness. PHYSICAL EXAMINATION: VITAL SIGNS: Temperature of 98 degrees, blood pressure 137/56, pulse rate of 57, and respiratory rate of 18. HEAD AND NECK: No JVP. No LAD. No thyromegaly. Extraocular moves are intact. Pupils are reactive to light and accommodation. LUNGS: Clear to auscultation. CARDIAC: Regular rate and rhythm. S1 and S2. No murmur. No rub. ABDOMEN: Soft, nontender, and nondistended. EXTREMITIES: No edema. No clubbing. No cyanosis. LABORATORY AND DIAGNOSTIC DATA: WBC count of 6.5, hemoglobin of 11.1, hematocrit of 33.9, and platelet count of 187. Chemistry revealed sodium 139, potassium 4.5, chloride 105, bicarbonate 25, BUN of 18, creatinine of 2.5, and glucose of 127. Calcium of 9.2. Total protein of 7.5. Albumin of 3.6. AST of 25 and ALT of 23. UA revealed specific gravity of 10. No proteinuria. No wbc or rbc. The patient had an ultrasound of the abdomen, which revealed negative for gallstone disease and dilated bile duct, mild right hydronephrosis. Consider CT of the abdomen. ASSESSMENT: 1. Acute on chronic renal failure, the etiology of acute renal failure, acute tubular necrosis due to unstable hemodynamics versus prerenal azotemia due to intractable nausea and vomiting. 2. Chronic kidney disease, the etiology of chronic kidney disease is hypertensive nephrosclerosis. 3. Right mild hydronephrosis. PLAN: Plan for patient to obtain UA. The patient's random urine [id number] ratio to calculate the proteinuria. Check the urine sodium and creatinine to calculate fractional excretion of sodium. I would discontinue the potassium at this time. I would avoid any NSAID or nephrotoxic. I will order a CT of the abdomen with oral contrast. I will check the patient for proteinuria. I would also recommend to check the level since she has a chronic lung disease and kidney disease, possibility of pulmonary lung syndrome. I will continue the IV hydration and rule out also sarcoidosis is another possibility for the pulmonary lung syndrome. Again, I would like to thank, Dr. Cristi Sawyer, for allowing me to participate in the care of this patient. Selena Howard M.D. DR: RENA JOB#: [id number] CC:
[2017-09-07] MEDS: D5 1/2NS 1,000 ML IV SCH (02:16)
[2017-09-07 04:26] VITALS: BP 140/66
[2017-09-07 08:00] VITALS: BP 128/58
--- NOTE | 2017-09-07 08:13 | Pulmonology Progress Note ---
Assessment/Plan Assessment/Plan ASSESSMENT COPD bronchiectasis Intractable n/v/ generalized weakness acute on chronic renal failure, possibly prerenal due to dehydration mild right hydronephrosis HTN Hx of elevated CA 19-9 PLAN OF CARE MS floor O2 HHN prn CXR with left apical pleural scarring. Extensive fibrotic changes seen throughout the left lung. There is volume loss of the left lung. These findings were unchanged. There was some right perihilar scarring. Right lung was slightly hyperinflated. fup with CXR in am sputum cx negative a/tussive prn s/p IVF monitor renal parameters, lytes no significant change in creat correct lytes as needed, avoid nephrotoxic nephro follows abdominal US: Negative for gallstones or dilated ducts Mild right hydronephrosis, etiology not demonstrated. Normal kidney echogenicity bilaterally Small right renal collecting system calculus versus artifact CT A/P with oral contrast today as ordered by nephro GI follows a/emetic prn PPI Bowel regimen Recheck CA 19-9 Outpatient GI procedures monitor HH, anemia w/up DVT prophylaxis BP management with CCB and BB continue statin, symptomatic treatment case discussed and evaluated by supervising physician Subjective Allergies: Coded Allergies: NO KNOWN ALLERGIES (Verified Allergy, Unknown, 09/04/17) Subjective patient reports cough with yellowing phlegm denies wheezing, SOB, chest pain , chest tightness no chills Objective Last 24 Hour Vital Signs Date Time Temp Pulse Resp B/P (MAP) Pulse Ox O2 Delivery O2 Flow Rate FiO2 09/07/17 04:26 97.9 63 20 140/66 93 Nasal Cannula 97.9 09/07/17 00:00 97.7 100 18 116/74 100 97.7 09/06/17 21:16 78 138/62 09/06/17 20:36 98.2 78 18 138/62 94 Nasal Cannula 2.0 98.2 09/06/17 19:22 98 Nasal Cannula 2.0 28 09/06/17 19:22 Nasal Cannula 2.0 28 09/06/17 16:00 98.5 58 20 140/63 93 98.5 09/06/17 12:00 97.7 56 20 136/59 96 97.7 09/06/17 09:10 135/60 09/06/17 09:10 64 135/60 09/06/17 09:09 64 135/60 Intake and Output 09/06/17 09/07/17 19:00 07:00 Intake Total 1190 ml 750 ml Balance 1190 ml 750 ml Intake Oral 440 ml IV Total 750 ml 750 ml # Voids 2 2 General Appearance: no acute distress HEENT: normocephalic, atraumatic, anicteric, mucous membranes moist Respiratory/Chest: no respiratory distress, no accessory muscle use, rhonchi - few scattered rhonchi Cardiovascular: normal rate, no JVD Abdomen: normal bowel sounds, soft, non tender Extremities: no edema, pedal pulses normal Neurologic/Psychiatric: no motor/sensory deficits, alert, oriented x 3, responsive, normal mood/affect Musculoskeletal: normal muscle bulk Microbiology Date/Time Source Procedure Growth Status 09/04/17 15:35 Blood Blood Culture - Preliminary NO GROWTH AFTER 48 HOURS Resulted 09/04/17 15:25 Blood Blood Culture - Preliminary NO GROWTH AFTER 48 HOURS Resulted 09/05/17 01:30 Sputum Gram Stain - Final Resulted 09/05/17 01:30 Sputum Sputum Culture - Preliminary NORMAL UPPER RESPIRATORY JOSE L AT 24 ... Resulted Laboratory Tests 09/06/17 18:20: Urine Color Pale yellow, Urine Appearance Clear, Urine pH 6.5, Urine Specific [place] 1.005, Urine Protein Negative, Urine Glucose (UA) Negative, Urine Ketones Negative, Urine Occult Blood Negative, Urine Nitrite Negative, Urine Bilirubin Negative, Urine Urobilinogen Normal, Urine Leukocyte Esterase Negative , Urine RBC 0-2, Urine WBC 0-2, Urine Squamous Epithelial Cells None, Urine Bacteria None, Urine Eosinophils None seen, Urine Random Creatinine [Pending], Urine Random Microalbumin [Pending], Urine Random Total Protein 5, Urine Random Sodium 29, Urine Creatinine 60.9, Urine Microalbumin/Creatinine Ratio [Pending] Current Medications Medications (Trade) Dose Ordered Sig/Suraj Route PRN Reason Start Time Stop Time Status Last Admin Dose Admin Acetaminophen (Tylenol) 650 mg Q4H PRN ORAL fever 09/06/17 02:15 10/04/17 22:14 Al Hydroxide/Mg Hydroxide (Mylanta II) 30 ml Q6H PRN ORAL dyspepsia 09/06/17 04:15 10/04/17 22:14 Amlodipine Besylate (Norvasc) 10 mg DAILY ORAL 09/06/17 09:00 10/05/17 08:59 09/06/17 09:10 Atorvastatin Calcium (Lipitor) 20 mg DAILY ORAL 09/06/17 09:00 10/05/17 08:59 09/06/17 09:10 Carvedilol (Coreg) 12.5 mg EVERY 12 HOURS ORAL 09/06/17 09:00 10/05/17 08:59 09/06/17 21:16 Dextrose (Dextrose 50%) STAT PRN IV Hypoglycemia 09/06/17 22:15 10/04/17 22:14 Dextrose/Sodium Chloride 1,000 ml @ 75 mls/hr [id number] IV 09/05/17 23:45 10/04/17 22:01 09/07/17 02:16 Diphenhydramine HCl (Benadryl) 25 mg Q6H PRN ORAL Itching/Pruritis 09/06/17 04:15 10/04/17 22:14 Docusate Sodium (Colace) 100 mg TID PRN ORAL Constipation 09/06/17 11:00 10/06/17 10:59 Gabapentin (Neurontin) 600 mg QHS ORAL 09/06/17 21:00 10/05/17 20:59 09/06/17 21:16 Heparin Sodium (Porcine) (Heparin 5000 units/ml) 5,000 units EVERY 12 HOURS SUBQ 09/06/17 09:00 10/05/17 08:59 09/06/17 21:16 Lorazepam (Ativan 2mg/ml 1ml) 1 mg Q4H PRN IV agitation 09/06/17 01:00 09/13/17 00:59 Losartan Potassium (Cozaar) 50 mg DAILY ORAL 09/06/17 09:00 10/05/17 08:59 09/06/17 09:10 Morphine Sulfate (Morphine Sulfate) 2 mg Q4H PRN IVP severe Pain (Pain Scale 7-10) 09/06/17 01:00 09/13/17 00:59 Nitroglycerin (Ntg) 0.4 mg Q5M PRN SL Prn Chest Pain 09/05/17 23:50 10/04/17 22:14 Ondansetron HCl (Zofran) 4 mg Q6H PRN IVP Nausea & Vomiting 09/06/17 05:30 10/04/17 22:14 Pantoprazole (Protonix) 40 mg DAILY IV 09/06/17 09:00 10/05/17 08:59 09/06/17 09:09 Polyethylene Glycol (Miralax) 17 gm BEDTIME ORAL 09/06/17 21:00 10/06/17 20:59 09/06/17 21:16 Prednisolone Acetate (Pred Forte) 2 drop BID BOTH EYES 09/06/17 09:00 10/06/17 08:59 09/06/17 17:07 Promethazine HCl (Phenergan) 25 mg TID PRN ORAL Nausea & Vomiting 09/06/17 09:00 10/05/17 11:29 09/06/17 11:21 Promethazine HCl/ Codeine (Phenergan with Codeine) 5 ml Q4H PRN ORAL For Cough 09/06/17 02:15 10/04/17 22:14 Sertraline HCl (Zoloft) 100 mg DAILY ORAL 09/06/17 09:00 10/05/17 08:59 09/06/17 09:10 Temazepam (Restoril) 15 mg HSPRN PRN ORAL Insomnia 09/06/17 22:15 09/11/17 22:14 [place] ([facility])Yashira NP Sep 07, 2017 08:13
[2017-09-07 09:41] LABS: BASOPHILS % (AUTO) 1.1 % (0.0-2.0); EOSINOPHILS % (AUTO) 7.2 % (0.0-3.0); HEMATOCRIT 34.7 % (37.0-47.0); HEMOGLOBIN 11.3 G/DL (12.0-16.0); LYMPHOCYTES % (AUTO) 27.6 % (20.0-45.0); MEAN CORPUSCULAR VOLUME 104 FL (80-99); MONOCYTES % (AUTO) 14.6 % (1.0-10.0); NEUTROPHILS % (AUTO) 49.6 % (45.0-75.0); PLATELET COUNT 195 K/UL (150-450); RED BLOOD COUNT 3.33 M/UL (4.20-5.40); RED CELL DISTRIBUTION WIDTH 11.6 % (11.6-14.8); WHITE BLOOD COUNT 4.6 K/UL (4.8-10.8)
[2017-09-07] MEDS: Pred Forte 1% Opth Susp 1ml BOTH EYES SCH (09:47)
[2017-09-07] MEDS: Pantoprazole Inj IV SCH (09:47)
[2017-09-07] MEDS: Heparin 5000 units/ml inj SUBQ SCH (09:48)
[2017-09-07] MEDS: Sertraline 100mg tab ORAL SCH (09:49)
[2017-09-07] MEDS: Carvedilol 12.5mg tab ORAL SCH (09:49)
[2017-09-07] MEDS: Losartan 50mg tab ORAL SCH (09:55)
[2017-09-07 10:45] LABS: ANION GAP 12 mmol/L (5-15); BLOOD UREA NITROGEN 22 mg/dL (7-18); CALCIUM 9.2 MG/DL (8.5-10.1); CARBON DIOXIDE 22 MMOL/L (21-32); CHLORIDE 103 MMOL/L (98-107); CREATININE 2.5 MG/DL (0.55-1.30); POTASSIUM 4.9 MMOL/L (3.5-5.1); SODIUM 137 MMOL/L (136-145)
[2017-09-07] MEDS ORDERED: Albuterol/Ipratropium 3ml neb HHN PRN (11:00)
--- NOTE | 2017-09-07 11:33 | GI Progress Note ---
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 Jacome. Assessment/Plan s/p EUS 2012 >> unremarkable Hx of CA19-9 elevation CXR reviewed >> no acute process abdominal U/S reviewed >> mild right hydronephrosis fu nephro recs IV/PO hydration renal diet promethazine prn anemia work up OB stool r/o GI bleed monitor H&H, prn transfusions bowel regime ppi fu labs, CA19-9 outpatient GI procedures Subjective Subjective dizzy tolerating diet R flank pain Objective Last 24 Hour Vital Signs Date Time Temp Pulse Resp B/P (MAP) Pulse Ox O2 Delivery O2 Flow Rate FiO2 09/07/17 11:21 65 18 Nasal Cannula 2.0 28 09/07/17 11:16 65 18 98 Nasal Cannula 2.0 28 09/07/17 09:55 128/58 09/07/17 09:49 64 128/88 09/07/17 09:48 64 128/58 09/07/17 08:00 97.9 64 20 128/58 95 Nasal Cannula 97.9 09/07/17 07:29 97 Nasal Cannula 2.0 28 09/07/17 07:29 Nasal Cannula 2.0 28 09/07/17 04:26 97.9 63 20 140/66 93 Nasal Cannula 97.9 09/07/17 00:00 97.7 100 18 116/74 100 97.7 09/06/17 21:16 78 138/62 09/06/17 20:36 98.2 78 18 138/62 94 Nasal Cannula 2.0 98.2 09/06/17 19:22 98 Nasal Cannula 2.0 28 09/06/17 19:22 Nasal Cannula 2.0 28 09/06/17 16:00 98.5 58 20 140/63 93 98.5 09/06/17 12:00 97.7 56 20 136/59 96 97.7 Intake and Output 09/06/17 09/07/17 19:00 07:00 Intake Total 1190 ml 750 ml Balance 1190 ml 750 ml Intake Oral 440 ml IV Total 750 ml 750 ml # Voids 2 2 Laboratory Tests Test 09/06/17 18:20 09/07/17 08:30 Urine Color Pale yellow Urine Appearance Clear Urine pH 6.5 (4.5-8.0) Urine Specific [place] 1.005 (1.005-1.035) Urine Protein Negative (NEGATIVE) Urine Glucose (UA) Negative (NEGATIVE) Urine Ketones Negative (NEGATIVE) Urine Occult Blood Negative (NEGATIVE) Urine Nitrite Negative (NEGATIVE) Urine Bilirubin Negative (NEGATIVE) Urine Urobilinogen Normal MG/DL (0.0-1.0) Urine Leukocyte Esterase Negative (NEGATIVE) Urine RBC 0-2 /HPF (0 - 2) Urine WBC 0-2 /HPF (0 - 2) Urine Squamous Epithelial Cells None /LPF (NONE/OCC) Urine Bacteria None /HPF (NONE) Urine Eosinophils None seen Urine Random Creatinine Pending Urine Random Microalbumin Pending Urine Random Total Protein 5 MG/DL (< 11.9) Urine Random Sodium 29 mmol/L (20-110) Urine Creatinine 60.9 MG/DL (30.0-125.0) Urine Microalbumin/Creatinine Ratio Pending White Blood Count 4.6 K/UL (4.8-10.8) L Red Blood Count 3.33 M/UL (4.20-5.40) L Hemoglobin 11.3 G/DL (12.0-16.0) L Hematocrit 34.7 % (37.0-47.0) L Mean Corpuscular Volume 104 FL (80-99) H Mean Corpuscular Hemoglobin 33.8 PG (27.0-31.0) H Mean Corpuscular Hemoglobin Concent 32.5 G/DL (32.0-36.0) Red Cell Distribution Width 11.6 % (11.6-14.8) Platelet Count 195 K/UL (150-450) Mean Platelet Volume 8.0 FL (6.5-10.1) Neutrophils (%) (Auto) 49.6 % (45.0-75.0) Lymphocytes (%) (Auto) 27.6 % (20.0-45.0) Monocytes (%) (Auto) 14.6 % (1.0-10.0) H Eosinophils (%) (Auto) 7.2 % (0.0-3.0) H Basophils (%) (Auto) 1.1 % (0.0-2.0) Sodium Level 137 MMOL/L (136-145) Potassium Level 4.9 MMOL/L (3.5-5.1) Chloride Level 103 MMOL/L (98-107) Carbon Dioxide Level 22 MMOL/L (21-32) Anion Gap 12 mmol/L (5-15) Blood Urea Nitrogen 22 mg/dL (7-18) H Creatinine 2.5 MG/DL (0.55-1.30) H Estimat Glomerular Filtration Rate 23.4 mL/min (>60) Glucose Level 102 MG/DL (74-106) Calcium Level 9.2 MG/DL (8.5-10.1) Height (Feet): 5 Height (Inches): 11.00 Weight (Pounds): 210 General Appearance: alert Cardiovascular: normal rate Respiratory/Chest: normal breath sounds, no respiratory distress Abdominal Exam: normal bowel sounds, non tender, soft Extremities: normal range of motion Flori Echevarria N.P. Sep 07, 2017 11:33
--- NOTE | 2017-09-07 11:35 | Nephrology Progress Note ---
Assessment/Plan Assessment 1. Acute on chronic renal failure, 2. Chronic kidney disease, . 3. Right mild hydronephrosis. Plan plan to continue IVF monitoring renal function avoid NSAID ct abdomen with oral contrast replace electrolyte as need it Subjective Constitutional: Reports: no symptoms, malaise, weakness HEENT: Reports: no symptoms Genitourinary: Reports: no symptoms Neurologic/Psychiatric: Reports: no symptoms Subjective alert and wake no complaints Objective Objective Last 24 Hour Vital Signs Date Time Temp Pulse Resp B/P (MAP) Pulse Ox O2 Delivery O2 Flow Rate FiO2 09/07/17 11:21 65 18 Nasal Cannula 2.0 28 09/07/17 11:16 65 18 98 Nasal Cannula 2.0 28 09/07/17 09:55 128/58 09/07/17 09:49 64 128/88 09/07/17 09:48 64 128/58 09/07/17 08:00 97.9 64 20 128/58 95 Nasal Cannula 97.9 09/07/17 07:29 97 Nasal Cannula 2.0 28 09/07/17 07:29 Nasal Cannula 2.0 28 09/07/17 04:26 97.9 63 20 140/66 93 Nasal Cannula 97.9 09/07/17 00:00 97.7 100 18 116/74 100 97.7 09/06/17 21:16 78 138/62 09/06/17 20:36 98.2 78 18 138/62 94 Nasal Cannula 2.0 98.2 09/06/17 19:22 98 Nasal Cannula 2.0 28 09/06/17 19:22 Nasal Cannula 2.0 28 09/06/17 16:00 98.5 58 20 140/63 93 98.5 09/06/17 12:00 97.7 56 20 136/59 96 97.7 Intake and Output 09/06/17 09/07/17 19:00 07:00 Intake Total 1190 ml 750 ml Balance 1190 ml 750 ml Intake Oral 440 ml IV Total 750 ml 750 ml # Voids 2 2 Laboratory Tests 09/06/17 18:20: Urine Color Pale yellow, Urine Appearance Clear, Urine pH 6.5, Urine Specific [place] 1.005, Urine Protein Negative, Urine Glucose (UA) Negative, Urine Ketones Negative, Urine Occult Blood Negative, Urine Nitrite Negative, Urine Bilirubin Negative, Urine Urobilinogen Normal, Urine Leukocyte Esterase Negative , Urine RBC 0-2, Urine WBC 0-2, Urine Squamous Epithelial Cells None, Urine Bacteria None, Urine Eosinophils None seen, Urine Random Creatinine [Pending], Urine Random Microalbumin [Pending], Urine Random Total Protein 5, Urine Random Sodium 29, Urine Creatinine 60.9, Urine Microalbumin/Creatinine Ratio [Pending] 09/07/17 08:30: White Blood Count 4.6L, Red Blood Count 3.33L, Hemoglobin 11.3L, Hematocrit 34.7L, Mean Corpuscular Volume 104H, Mean Corpuscular Hemoglobin 33.8H, Mean Corpuscular Hemoglobin Concent 32.5, Red Cell Distribution Width 11.6, Platelet Count 195, Mean Platelet Volume 8.0, Neutrophils (%) (Auto) 49.6, Lymphocytes (% ) (Auto) 27.6, Monocytes (%) (Auto) 14.6H, Eosinophils (%) (Auto) 7.2H, Basophils (%) (Auto) 1.1, Sodium Level 137, Potassium Level 4.9, Chloride Level 103, Carbon Dioxide Level 22, Anion Gap 12, Blood Urea Nitrogen 22H, Creatinine 2.5H, Estimat Glomerular Filtration Rate 23.4, Glucose Level 102, Calcium Level 9.2 Height (Feet): 5 Height (Inches): 11.00 Weight (Pounds): 210 Objective HEAD AND NECK: No JVP. No LAD. No thyromegaly. Extraocular moves are intact. Pupils are reactive to light and accommodation. LUNGS: Clear to auscultation. CARDIAC: Regular rate and rhythm. S1 and S2. No murmur. No rub. ABDOMEN: Soft, nontender, and nondistended. EXTREMITIES: No edema. No clubbing. No cyanosis. NARAYAN RAMIREZ Sep 07, 2017 11:35
[2017-09-07 12:00] VITALS: BP 129/66
--- NOTE | 2017-09-07 13:53 | General Progress Note ---
Assessment/Plan Problem List: (1) SOB (shortness of breath) ICD Codes: R06.02 - Shortness of breath SNOMED: 402872353 (2) Weak ICD Codes: R53.1 - Weakness SNOMED: 99797726 (3) Abdominal pain ICD Codes: R10.9 - Unspecified abdominal pain SNOMED: 89590846 (4) Anemia ICD Codes: D64.9 - Anemia, unspecified SNOMED: 563563522 (5) Renal insufficiency ICD Codes: N28.9 - Disorder of kidney and ureter, unspecified SNOMED: 899827484, 274736366 (6) COPD (chronic obstructive pulmonary disease) ICD Codes: J44.9 - Chronic obstructive pulmonary disease, unspecified SNOMED: 36585329 (7) Episode of generalized weakness ICD Codes: R53.1 - Weakness SNOMED: 64311709 Status: stable, progressing, tolerating diet Assessment/Plan o2 pulm tx pain control ot pt diet dc w hh if clear Subjective Constitutional: Reports: weakness Allergies: Coded Allergies: NO KNOWN ALLERGIES (Verified Allergy, Unknown, 09/04/17) All Systems: reviewed and negative except above Subjective o2nc sob weak Objective Last 24 Hour Vital Signs Date Time Temp Pulse Resp B/P (MAP) Pulse Ox O2 Delivery O2 Flow Rate FiO2 09/07/17 11:29 65 18 97 Nasal Cannula 2.0 28 09/07/17 11:21 65 18 Nasal Cannula 2.0 28 09/07/17 11:16 65 18 98 Nasal Cannula 2.0 28 09/07/17 09:55 128/58 09/07/17 09:49 64 128/88 09/07/17 09:48 64 128/58 09/07/17 08:00 97.9 64 20 128/58 95 Nasal Cannula 97.9 09/07/17 07:29 97 Nasal Cannula 2.0 28 09/07/17 07:29 Nasal Cannula 2.0 28 09/07/17 04:26 97.9 63 20 140/66 93 Nasal Cannula 97.9 09/07/17 00:00 97.7 100 18 116/74 100 97.7 09/06/17 21:16 78 138/62 09/06/17 20:36 98.2 78 18 138/62 94 Nasal Cannula 2.0 98.2 09/06/17 19:22 98 Nasal Cannula 2.0 28 09/06/17 19:22 Nasal Cannula 2.0 28 09/06/17 16:00 98.5 58 20 140/63 93 98.5 Intake and Output 09/06/17 09/07/17 19:00 07:00 Intake Total 1190 ml 750 ml Balance 1190 ml 750 ml Intake Oral 440 ml IV Total 750 ml 750 ml # Voids 2 2 Laboratory Tests 09/06/17 18:20: Urine Color Pale yellow, Urine Appearance Clear, Urine pH 6.5, Urine Specific [place] 1.005, Urine Protein Negative, Urine Glucose (UA) Negative, Urine Ketones Negative, Urine Occult Blood Negative, Urine Nitrite Negative, Urine Bilirubin Negative, Urine Urobilinogen Normal, Urine Leukocyte Esterase Negative , Urine RBC 0-2, Urine WBC 0-2, Urine Squamous Epithelial Cells None, Urine Bacteria None, Urine Eosinophils None seen, Urine Random Creatinine [Pending], Urine Random Microalbumin [Pending], Urine Random Total Protein 5, Urine Random Sodium 29, Urine Creatinine 60.9, Urine Microalbumin/Creatinine Ratio [Pending] 09/07/17 08:30: White Blood Count 4.6L, Red Blood Count 3.33L, Hemoglobin 11.3L, Hematocrit 34.7L, Mean Corpuscular Volume 104H, Mean Corpuscular Hemoglobin 33.8H, Mean Corpuscular Hemoglobin Concent 32.5, Red Cell Distribution Width 11.6, Platelet Count 195, Mean Platelet Volume 8.0, Neutrophils (%) (Auto) 49.6, Lymphocytes (% ) (Auto) 27.6, Monocytes (%) (Auto) 14.6H, Eosinophils (%) (Auto) 7.2H, Basophils (%) (Auto) 1.1, Sodium Level 137, Potassium Level 4.9, Chloride Level 103, Carbon Dioxide Level 22, Anion Gap 12, Blood Urea Nitrogen 22H, Creatinine 2.5H, Estimat Glomerular Filtration Rate 23.4, Glucose Level 102, Calcium Level 9.2 Height (Feet): 5 Height (Inches): 11.00 Weight (Pounds): 210 General Appearance: alert EENT: normal ENT inspection Neck: normal alignment Cardiovascular: normal peripheral pulses, normal rate, regular rhythm Respiratory/Chest: decreased breath sounds Abdomen: normal bowel sounds, non tender, soft Extremities: normal inspection Edema: no edema noted Arm (L), no edema noted Arm (R), no edema noted Leg (L), no edema noted Leg (R), no edema noted Pedal (L), no edema noted Pedal (R), no edema noted Generalized Neurologic: responsive, motor weakness Skin: normal pigmentation, warm/dry LUMA MCCLENDON Sep 07, 2017 13:53
[2017-09-07] MEDS ORDERED: TEMAZEPAM15 MG ORAL (15:03)
[2017-09-07] MEDS ORDERED: PROMETH-CODEIN 65 ML PO (15:05)
[2017-09-07] MEDS ORDERED: PHENERGAN25 M1 ORAL (15:08)
[2017-09-07] MEDS ORDERED: MIRALAX17 G2 ORAL (15:09)
[2017-09-07] MEDS ORDERED: ALUM-MAG HYDRO360 ML PO (15:12)
[2017-09-07] MEDS ORDERED: COLACE100 MG ORAL (15:13)
[2017-09-07] MEDS ORDERED: BENADRYL25 MG ORAL (15:13)
[2017-09-07] MEDS ORDERED: DUONEB 0.5-3(2.53 ML HHN (15:14)
[2017-09-07] MEDS ORDERED: ACETAMINOPHEN120 MG PO ×2 (15:15→15:17)
[2017-09-07] MEDS ORDERED: NITROGLYCERIN0.4 MG SL ×2 (15:23→15:43)
[2017-09-07 16:00] VITALS: BP 132/62
--- NOTE | 2017-09-07 17:31 | Diagnostic Imaging Report ---
Indication: Abdominal pain and nausea Technique: Spiral acquisitions obtained through the abdomen and pelvis. Patient given oral contrast. No IV contrast utilized, per referring physician request.. Multiplanar reconstructions were generated. Total dose length product 948.78 mGycm. CTDIvol(s) 19.07 mGy. Dose reduction achieved using automated exposure control Comparison: 08/20/2012 Findings: The appendix is not definitely visualized, but no findings to suggest acute appendicitis are evident. There are colonic diverticula. Surgical clips are seen adjacent to the colon, also evident previously. There is a small fat-containing umbilical hernia again demonstrated. No small bowel distention. Contrast is seen throughout the small bowel and into the colon as far distally as the mid transverse colon. No bowel wall thickening. No free or loculated intraperitoneal air or fluid is evident. Lack of IV contrast limits assessment of the solid organs. The liver demonstrates a few questionable areas of surface nodularity. No focal abnormality. Gallbladder is unremarkable. A calcification in the lj hepatis is probably arterial. No biliary ductal dilatation. The pancreas is unremarkable. The spleen is unremarkable, although there are multiple accessory splenules. The bilateral adrenals are unremarkable. There is prominence to the right renal pelvis but no carli hydronephrosis. This appearance is similar to the previous exam. No ureteral calculi are demonstrated. There are bilateral upper pole renal cysts as well as bilateral subcentimeter low-attenuation renal lesions which are too small to characterize. A calcification is again demonstrated in the capsule of the left kidney. There are prominent but not frankly enlarged retroperitoneal lymph nodes. The uterus is absent, presumably postsurgical. No pelvic mass or adenopathy. The included lung bases demonstrate left basilar chronic appearing volume loss with bronchiectasis and honeycombing. Minimal bronchiectasis and honeycombing is seen also in the right azygoesophageal recess. The right lung base is otherwise clear. The bones demonstrate lumbar scoliotic deformity and fairly extensive degenerative spondylosis. Impression: No acute process Colonic diverticulosis. No evidence of diverticulitis Equivocal hepatic surface nodularity, if real could indicate early cirrhotic changes Evidence of prior hysterectomy Left basilar pulmonary parenchymal fibrotic changes with bronchiectasis and honeycombing. Minimal similar abnormality is seen at the right lung base Lumbar scoliosis and degenerative spondylosis Bilateral renal cysts. Bilateral subcentimeter low-attenuation renal lesions which are too small to characterize, most likely benign simple cysts. No further follow-up necessary. Other findings as noted, including left renal capsular calcification, accessory splenules, small fat-containing umbilical hernia The CT scanner at [facility] is accredited by the [employer] and the scans are performed using protocols designed to limit radiation exposure to as low as reasonably achievable to attain images of sufficient resolution adequate for diagnostic evaluation.
--- NOTE | 2017-09-10 11:08 | Discharge Summary ---
Discharge Summary Hospital Course Date of Admission Sep 04, 2017 at 16:16 Date of Discharge Sep 07, 2017 at 17:15 Admitting Diagnosis generalized weakness, copd exacerbation HPI Deidra Sanchez is a 67 year old female who was admitted on Sep 04, 2017 at 16 :16 for Generalized Weakness, Chronic Obstructive [place]money Hospital Course dc summary #[id number] Discharge Medications Continued Medications: Acetaminophen* (Tylenol*) 120 Mg Supp.rect 650 MG PO Q4H PRN for Fever/Headache/Mild Pain, SUPP (This prescription has been renewed) Amlodipine Besylate* (Amlodipine Besylate*) 10 Mg Tablet 10 MG ORAL DAILY (This prescription has been renewed) Atorvastatin Calcium* (Atorvastatin Calcium*) 20 Mg Tablet 20 MG ORAL DAILY, TAB (This prescription has been renewed) Carvedilol* (Carvedilol*) 12.5 Mg Tablet 12.5 MG ORAL EVERY 12 HOURS, TAB (This prescription has been renewed) Diphenhydramine Hcl* (Benadryl*) 25 Mg Capsule 25 MG ORAL Q6H PRN for Itching, CAP (This prescription has been renewed) Docusate Sodium* (Colace*) 100 Mg Capsule 100 MG ORAL THREE TIMES A DAY PRN for Constipation, CAP (This prescription has been renewed) Gabapentin* (Gabapentin*) 600 Mg Tablet 600 MG ORAL QHS, TAB (This prescription has been renewed) Ipratropium/Albuterol Sulfate (DuoNeb 0.5-3(2.5)mg/3ml) 3 Ml Ampul.neb 3 ML HHN EVERY 4 HOURS PRN for Shortness of breath, EA (This prescription has been renewed) Losartan Potassium* (Cozaar*) 50 Mg Tablet 50 MG ORAL DAILY, TAB (This prescription has been renewed) Mag Hydrox/Al Hydrox/Simeth (Alum-Mag Hydroxide-Simeth Liq) 360 Ml Oral.susp 30 ML PO Q6HR PRN for Abdominal cramps, ML (This prescription has been renewed) Nitroglycerin (Nitroglycerin) 0.4 Mg Tab.subl 0.4 MG SL [id number] PRN for Prn Chest Pain, TAB (This prescription has been renewed) Polyethylene Glycol 3350* (Miralax*) 17 Gm Powd.pack 17 GM ORAL BEDTIME PRN for Constipation, PACKET (This prescription has been renewed) Prednisolone Acetate (Prednisolone Acetate) 5 Ml Drops.susp 2 DROP BOTH EYES TWICE A DAY, ML (This prescription has been renewed) Promethazine Hcl* (Phenergan*) 25 Mg Tablet 25 MG ORAL THREE TIMES A DAY PRN for Nausea & Vomiting, #15 TAB 0 Refills (This prescription has been renewed) Promethazine HCl/Codeine (Prometh-Codein 6.25-10 mg/5 ml) 5 Ml Syrup 5 ML PO PRN for For Cough, ML (This prescription has been renewed) Sertraline Hcl* (Zoloft*) 100 Mg Tablet 100 MG ORAL DAILY, TAB (This prescription has been renewed) Temazepam (Temazepam*) 15 Mg Capsule 15 MG ORAL BEDTIME PRN for Insomnia, #30 CAP 0 Refills (This prescription has been renewed) Discharge Discharge Disposition Patient was discharged to Home with Home Health() [facility] Sep 10, 2017 11:08
--- NOTE | 2017-09-11 01:31 | Discharge Summary 2 SIG ---
DATE OF ADMISSION: 09/04/2017 DATE OF DISCHARGE: 09/07/2017 REASON FOR ADMISSION: The patient is a 67 years old female, presented to the emergency department with past medical history of chronic obstructive pulmonary disease, bronchiectasis, chronic lung disease, hypertension, and diabetes, presented to the emergency department with a chief complaint of dyspnea, generalized weakness, and intractable nausea and vomiting. Vital signs were stable, no leukocytosis, electrolytes stable, however, has evidence of renal insufficiency with BUN of 18 and creatinine of 2.5. Liver enzymes were stable. Troponin negative. Lactic acid 1.3. Urinalysis negative. EKG shows sinus bradycardia with sinus rhythm, heart rate 55. Chest x-ray revealed no acute cardiopulmonary pathology. The patient admitted with a diagnosis of generalized weakness, COPD, hypertension, intractable nausea and vomiting, and generalized weakness. HOSPITAL COURSE: The patient admitted. Pulmonology, Nephrology, and GI consults were requested. The patient started on the IV hydration with close monitoring of her hemodynamic status. Supplemental oxygen provided as needed to keep pulse oximetry above 92%. Pulmonary toilet provided. Chest x-ray revealed left apical pleural scaring, extensive fibrotic changes seen throughout the left lung. There was volume loss of the left lung. Findings are unchanged from the previous study. There was some right perihilar scarring and right lung was slightly hyperinflated. Sputum culture was negative. Antitussives provided as needed. The patient is status post IV fluids. Renal parameters and electrolytes were closely monitored, no significant change in creatinine probably element of chronic renal insufficiency as well. Coal [employer] followed. Electrolytes corrected as needed. Nephrotoxics were avoided. Abdominal ultrasound was negative for gallstones, no dilated ducts, showed mild right hydronephrosis with normal kidney echogenicity bilaterally, small right renal collecting system calculus versus artifact. CT of the abdomen and pelvis done subsequently as recommended by radiologist and revealed no acute process, but shows colonic diverticulosis, but no evidence of diverticulitis, left basilar parenchymal fibrotic changes with bronchiectasis and honeycombing with similar abnormality seen in the right lung base. GI closely followed. Antiemetic provided as needed. The patient started on PPI. The patient started on bowel regimen. GI recommended outpatient GI procedure. Hemoglobin and hematocrit were closely monitored, remained at the baseline. The patient recommended outpatient follow up with GI for the GI procedure. The patient able to tolerate food. DVT prophylaxis provided. Blood pressure was managed with calcium-channel collin and beta-collin, remained stable. Statin was continued. The patient was educated on low-sodium, low-cholesterol, and low-fat diet. Symptomatic treatment was provided. The patient was clinically improving. The patient was stable for discharge home. DISCHARGE MEDICATIONS: See medication reconciliation list. DISCHARGE INSTRUCTIONS: The patient discharged home with outpatient follow up with primary care provider next week. Also, recommended outpatient follow up with GI for outpatient GI procedure. The patient was discharged home with home health services. FINAL DIAGNOSES: Include: 1. COPD. 2. Bronchiectasis. 3. Intractable nausea and vomiting, resolved. 4. Generalized weakness. 5. Hypertension. 6. Renal failure, acute on chronic, possibly prerenal due to dehydration. 7. Mild right hydronephrosis. 8. History of elevated CA 19-9. Cristi Sawyer D.O. I have been assigned to dictate discharge summary on this account and I was not involved in the patient's management. Yashira [facility] centerJane N.PRadha DR: CRISTINA JOB#: [id number] CC:
== END 2017-09-07 17:15 | disposition home health service (06) | DRG 190 ==
LOC: EMR 16:14 → 2E 16:16 → EDBEDREQ 18:51 → 2E 22:30 → 4W 09-06 00:42
DX: J47.9 Bronchiectasis, uncomplicated (principal); N17.0 Acute kidney failure with tubular necrosis; N13.30 Unspecified hydronephrosis; I12.9 Hypertensive chronic kidney disease with stage 1 through stage 4 chronic kidney disease, or unspecified chronic kidney disease; E86.0 Dehydration; R06.02 Shortness of breath; R11.2 Nausea with vomiting, unspecified; D64.9 Anemia, unspecified; R53.1 Weakness; R10.9 Unspecified abdominal pain; R19.7 Diarrhea, unspecified; I34.1 Nonrheumatic mitral (valve) prolapse; H54.62 Unqualified visual loss, left eye, normal vision right eye; N18.9 Chronic kidney disease, unspecified; I25.10 Atherosclerotic heart disease of native coronary artery without angina pectoris; R74.8 Abnormal levels of other serum enzymes; R79.89 Other specified abnormal findings of blood chemistry
CPT/HCPCS: 36415; 71045; 74176; 76700; 80048; 80053; 81001; 81003; 82043; 82044; 82150; 82164; 82378; 82550; 82553; 82570; 82607; 82728; 82746; 82962; 83540; 83550; 83605; 83690; 83735; 84100; 84300; 84439; 84443; 84484; 85025; 85044; 85610; 85730; 86850; 86900; 86901; 87040; 87070; 87205; 89050; 93005; 94640; 94664; 94760; 97803; 99285; J2405; J7620

== ENCOUNTER 2018-01-29 08:42 | Inpatient (IN) | payer MEDICARE, OTHER ==
[~2018-01-29] VITALS: Ht 177.8 cm; Wt 87.1 kg
[~2018-01-29 08:42] MED LIST changes: +ACETAMINOPHEN120 MG PO; +ALDACTONE25 MG ORAL; +ALUM-MAG HYDRO360 ML PO; +ATORVASTATIN CA20 MG ORAL; +BACTRIM DOUBLE S1 E1 ORAL; +BENADRYL25 MG ORAL; +CALCIPOTRIENE60 G1 TP; +COLACE100 MG ORAL; +DOXEPIN HCL45 GM TP; +DUONEB 0.5-3(2.53 ML HHN; +GABAPENTIN600 MG ORAL; +LIORESAL20 MG ORAL; +MIRALAX17 G2 ORAL; +MULTIVITAMINS1 EA11 ORAL; +NITROGLYCERIN0.4 MG SL; +OMEPRAZOLE40 M1 ORAL; +PHENERGAN25 M1 ORAL; +PROMETH-CODEIN 65 ML PO; +TEMAZEPAM15 MG ORAL
[2018-01-29 08:53] VITALS: BP 139/64
[2018-01-29] MEDS ORDERED: Albuterol/Ipratropium 3ml neb HHN ONE (09:00)
--- NOTE | 2018-01-29 09:04 | Emergency Room Report ---
History of Present Illness General Chief Complaint: Upper Respiratory Illness Source: Patient Present Illness HPI Patient is a 67-year-old female who presented after increased hemoptysis the patient reports having increased blood tinged sputum. She had prior history of bronchiectasis as well as the remote history of TB. The patient states she had recently been treated with oral antibiotics after being diagnosed with pneumonia. She had taken 2 pills of azithromycin. She reports having increased generalized weakness. Allergies: Coded Allergies: NO KNOWN ALLERGIES (Verified Allergy, Unknown, 09/04/17) Patient History Past Medical History: see triage record Now: No Reviewed Nursing Documentation: PMH: Agreed; PSxH: Agreed Nursing Documentation-PMH Past Medical History: No History, Except For Hx Cardiac Problems: Yes - mitral valve prolapse, heart murmur Hx Hypertension: Yes Hx COPD: Yes - Bronchiactesis Hx Cancer: No Hx Gastrointestinal Problems: Yes Hx Neurological Problems: Yes - Headaches, pinched nerve, left eye blindness Hx Headaches: Yes Hx Weakness: Yes Hx Fatigue: Yes Review of Systems All Other Systems: negative except mentioned in HPI Physical Exam Vital Signs Date Time Temp Pulse Resp B/P (MAP) Pulse Ox O2 Delivery O2 Flow Rate FiO2 01/29/18 08:43 98.8 59 20 139/64 98 Room Air 98.8 Sp02 EP Interpretation: reviewed, normal General Appearance: normal inspection, well appearing, no apparent distress, alert, GCS 15, Chronically Ill Head: atraumatic ENT: normal ENT inspection, hearing grossly normal, normal voice Neck: normal inspection, full range of motion, supple, no bony tend Respiratory: normal inspection, no respiratory distress, no retraction, rhonchi Cardiovascular #1: regular rate, rhythm, no edema Gastrointestinal: normal inspection, normal bowel sounds, non tender, soft, no guarding, no hernia Genitourinary: no CVA tenderness Musculoskeletal: normal inspection, back normal, normal range of motion Neurologic: normal inspection, alert, oriented x3, responsive, master scheduler III-XII nml as tested, speech normal Psychiatric: normal inspection, judgement/insight normal, mood/affect normal Skin: normal inspection, normal color, no rash Medical Decision Making Diagnostic Impression: Primary Impression: Hemoptysis, unspecified Additional Impressions: Bronchiectasis Hx of tuberculosis ER Course Patient presented for hemoptysis. Differential diagnoses included was not limited to a reactivation tuberculosis, pneumonia, pulmonary embolism, granulomatosis, coagulopathy, anemia among others.Because of complexity of patient's case laboratory testing and imaging studies were ordered.Laboratory testing showed evidence of normal white blood count Chest x-ray one view interpreted by radiology showed evidence of chronic lung scarring. There is no evidence of definite infiltrate. Dr. Cristi Sawyer was contacted for admission management due to primary care physician. Labs Test 01/29/18 09:11 01/29/18 09:22 White Blood Count 5.1 K/UL (4.8-10.8) Red Blood Count 3.72 M/UL (4.20-5.40) Hemoglobin 11.7 G/DL (12.0-16.0) Hematocrit 35.5 % (37.0-47.0) Mean Corpuscular Volume 96 FL (80-99) Mean Corpuscular Hemoglobin 31.4 PG (27.0-31.0) Mean Corpuscular Hemoglobin Concent 32.8 G/DL (32.0-36.0) Red Cell Distribution Width 11.2 % (11.6-14.8) Platelet Count 175 K/UL (150-450) Mean Platelet Volume 8.0 FL (6.5-10.1) Neutrophils (%) (Auto) 58.2 % (45.0-75.0) Lymphocytes (%) (Auto) 21.5 % (20.0-45.0) Monocytes (%) (Auto) 14.2 % (1.0-10.0) Eosinophils (%) (Auto) 4.7 % (0.0-3.0) Basophils (%) (Auto) 1.4 % (0.0-2.0) Sodium Level 131 MMOL/L (136-145) Potassium Level 4.1 MMOL/L (3.5-5.1) Chloride Level 96 MMOL/L (98-107) Carbon Dioxide Level 27 MMOL/L (21-32) Anion Gap 8 mmol/L (5-15) Blood Urea Nitrogen 18 mg/dL (7-18) Creatinine 2.8 MG/DL (0.55-1.30) Estimat Glomerular Filtration Rate 20.6 mL/min (>60) Glucose Level 99 MG/DL (74-106) Lactic Acid Level 1.10 mmol/L (0.4-2.0) Calcium Level 10.0 MG/DL (8.5-10.1) Phosphorus Level 3.4 MG/DL (2.5-4.9) Magnesium Level 1.5 MG/DL (1.8-2.4) Total Bilirubin 0.7 MG/DL (0.2-1.0) Aspartate Amino Transf (AST/SGOT) 31 U/L (15-37) Alanine Aminotransferase (ALT/SGPT) 20 U/L (12-78) Alkaline Phosphatase 112 U/L (46-116) Total Creatine Kinase 150 U/L (26-308) Creatine Kinase MB 1.2 NG/ML (0.0-3.6) Creatine Kinase MB Relative Index 0.8 Troponin I 0.000 ng/mL (0.000-0.056) Pro-B-Type Natriuretic Peptide 399 pg/mL (0-125) Total Protein 7.7 G/DL (6.4-8.2) Albumin 3.6 G/DL (3.4-5.0) Globulin 4.1 g/dL Albumin/Globulin Ratio 0.9 (1.0-2.7) Urine Color Pale yellow Urine Appearance Clear Urine pH 6.5 (4.5-8.0) Urine Specific [place] 1.005 (1.005-1.035) Urine Protein Negative (NEGATIVE) Urine Glucose (UA) Negative (NEGATIVE) Urine Ketones Negative (NEGATIVE) Urine Occult Blood Negative (NEGATIVE) Urine Nitrite Negative (NEGATIVE) Urine Bilirubin Negative (NEGATIVE) Urine Urobilinogen Normal MG/DL (0.0-1.0) Urine Leukocyte Esterase 1+ (NEGATIVE) Urine RBC 0-2 /HPF (0 - 2) Urine WBC 0-2 /HPF (0 - 2) Urine Squamous Epithelial Cells Occasional /LPF Urine Bacteria Occasional /HPF (NONE) Last Vital Signs Date Time Temp Pulse Resp B/P (MAP) Pulse Ox O2 Delivery O2 Flow Rate FiO2 01/29/18 08:43 98.8 59 20 139/64 98 Room Air 98.8 Status: unchanged Disposition: ADMITTED INPATIENT Condition: Serious Dago Watson MD Jan 29, 2018 09:04
[2018-01-29 09:29] LABS: BASOPHILS % (AUTO) 1.4 % (0.0-2.0); EOSINOPHILS % (AUTO) 4.7 % (0.0-3.0); HEMATOCRIT 35.5 % (37.0-47.0); HEMOGLOBIN 11.7 G/DL (12.0-16.0); LYMPHOCYTES % (AUTO) 21.5 % (20.0-45.0); MEAN CORPUSCULAR VOLUME 96 FL (80-99); MONOCYTES % (AUTO) 14.2 % (1.0-10.0); NEUTROPHILS % (AUTO) 58.2 % (45.0-75.0); PLATELET COUNT 175 K/UL (150-450); RED BLOOD COUNT 3.72 M/UL (4.20-5.40); RED CELL DISTRIBUTION WIDTH 11.2 % (11.6-14.8); WHITE BLOOD COUNT 5.1 K/UL (4.8-10.8)
[2018-01-29 09:35] LABS: APPEARANCE,URINE CLEAR; BILIRUBIN, URINE NEGATIVE (NEGATIVE); COLOR,URINE PALE YELLOW; GLUCOSE, URINE (UA) NEGATIVE (NEGATIVE); KETONES,URINE NEGATIVE (NEGATIVE); LEUKOCYTE ESTERASE ,URINE 1+ (NEGATIVE); NITRITE,URINE NEGATIVE (NEGATIVE); PH,URINE 6.5 (4.5-8.0); PROTEIN,URINE NEGATIVE (NEGATIVE); UROBILINOGEN,URINE NORMAL MG/DL (0.0-1.0)
[2018-01-29 09:38] LABS: ANION GAP 8 mmol/L (5-15); BLOOD UREA NITROGEN 18 mg/dL (7-18); CARBON DIOXIDE 27 MMOL/L (21-32); CHLORIDE 96 MMOL/L (98-107); CREATININE 2.8 MG/DL (0.55-1.30); POTASSIUM 4.1 MMOL/L (3.5-5.1); SODIUM 131 MMOL/L (136-145)
[2018-01-29] MEDS ORDERED: Ampicillin/Sulbactam Sod 3 GM in NS 110 ML IVPB ONE (09:45)
[2018-01-29 09:50] LABS: ALANINE AMINOTRANSFERASE 20 U/L (12-78); ALBUMIN 3.6 G/DL (3.4-5.0); ALBUMIN/GLOBULIN RATIO 0.9 (1.0-2.7); ALKALINE PHOSPHATASE 112 U/L (46-116); ASPARTATE AMINO TRANSFERASE 31 U/L (15-37); BILIRUBIN,TOTAL 0.7 MG/DL (0.2-1.0); CKMB 1.2 NG/ML (0.0-3.6); CREATINE KINASE 150 U/L (26-308); PHOSPHORUS 3.4 MG/DL (2.5-4.9)
--- NOTE | 2018-01-29 10:15 | Diagnostic Imaging Report ---
Indication: Shortness of breath Technique: One view of the chest Comparison: 03/07/2018 Findings: Chronic appearing interstitial disease, volume loss, and bronchiectasis are again demonstrated in the left lung. There is left apical pleural scarring. There is right perihilar scarring. The remainder the right lung is clear. Findings are overall unchanged. Impression: Extensive chronic appearing abnormality of the left lung, unchanged from earlier studies. Right perihilar scarring, unchanged No definite acute process
[2018-01-29 10:54] VITALS: BP 142/60
[2018-01-29 12:40] VITALS: BP 144/68
--- NOTE | 2018-01-29 14:11 | Pulmonology Progress Note ---
Subjective Allergies: Coded Allergies: NO KNOWN ALLERGIES (Verified Allergy, Unknown, 09/04/17) Objective Last 24 Hour Vital Signs Date Time Temp Pulse Resp B/P (MAP) Pulse Ox O2 Delivery O2 Flow Rate FiO2 01/29/18 12:41 99.0 85 15 122/65 100 Room Air 99.0 01/29/18 10:54 99.0 79 18 142/60 100 Room Air 99.0 01/29/18 09:35 51 16 100 Room Air 01/29/18 09:18 57 18 97 Room Air 01/29/18 09:15 57 16 Room Air 01/29/18 08:53 59 20 Room Air 01/29/18 08:53 98.8 20 139/64 98 Room Air 98.8 01/29/18 08:43 98.8 59 20 139/64 98 Room Air 98.8 Laboratory Tests 01/29/18 09:11: White Blood Count 5.1, Red Blood Count 3.72L, Hemoglobin 11.7L, Hematocrit 35.5L , Mean Corpuscular Volume 96, Mean Corpuscular Hemoglobin 31.4H, Mean Corpuscular Hemoglobin Concent 32.8, Red Cell Distribution Width 11.2L, Platelet Count 175, Mean Platelet Volume 8.0, Neutrophils (%) (Auto) 58.2, Lymphocytes (%) (Auto) 21.5, Monocytes (%) (Auto) 14.2H, Eosinophils (%) (Auto) 4.7H, Basophils (%) (Auto) 1.4, Sodium Level 131L, Potassium Level 4.1, Chloride Level 96L, Carbon Dioxide Level 27, Anion Gap 8, Blood Urea Nitrogen 18 , Creatinine 2.8H, Estimat Glomerular Filtration Rate 20.6, Glucose Level 99, Lactic Acid Level 1.10, Calcium Level 10.0, Phosphorus Level 3.4, Magnesium Level 1.5L, Total Bilirubin 0.7, Aspartate Amino Transf (AST/SGOT) 31, Alanine Aminotransferase (ALT/SGPT) 20, Alkaline Phosphatase 112, Total Creatine Kinase 150, Creatine Kinase MB 1.2, Creatine Kinase MB Relative Index 0.8, Troponin I 0.000, Pro-B-Type Natriuretic Peptide 399H, Total Protein 7.7, Albumin 3.6, Globulin 4.1, Albumin/Globulin Ratio 0.9L 01/29/18 09:22: Urine Color Pale yellow, Urine Appearance Clear, Urine pH 6.5, Urine Specific [place] 1.005, Urine Protein Negative, Urine Glucose (UA) Negative, Urine Ketones Negative, Urine Occult Blood Negative, Urine Nitrite Negative, Urine Bilirubin Negative, Urine Urobilinogen Normal, Urine Leukocyte Esterase 1+H, Urine RBC 0-2, Urine WBC 0-2, Urine Squamous Epithelial Cells Occasional, Urine Bacteria Occasional Current Medications Medications (Trade) Dose Ordered Sig/Suraj Route PRN Reason Start Time Stop Time Status Last Admin Dose Admin Amlodipine Besylate (Norvasc) 10 mg DAILY ORAL 01/30/18 09:00 03/01/18 08:59 Carvedilol (Coreg) 12.5 mg EVERY 12 HOURS ORAL 01/29/18 21:00 02/28/18 20:59 Gabapentin (Neurontin) 600 mg QHS ORAL 01/29/18 21:00 02/28/18 20:59 Losartan Potassium (Cozaar) 50 mg DAILY ORAL 01/30/18 09:00 03/01/18 08:59 Prednisolone Acetate (Pred Forte) 2 drop TWICE A DAY BOTH EYES 01/29/18 18:00 02/28/18 17:59 UNV Sertraline HCl (Zoloft) 100 mg DAILY ORAL 01/30/18 09:00 03/01/18 08:59 UNV Spironolactone (Aldactone) 12.5 mg DAILY ORAL 01/30/18 09:00 03/01/18 08:59 UNV Montse Hendrix MD Jan 29, 2018 14:11
[2018-01-29] MEDS ORDERED: Morphine Sulfate 4mg/ml Inj (IV USE ONLY) IVP PRN (14:15)
[2018-01-29] MEDS ORDERED: LORazepam Inj 2mg/ml 1ml IV PRN (14:15)
[2018-01-29] MEDS ORDERED: Miralax 17gm pkt ORAL PRN (14:15)
--- NOTE | 2018-01-29 14:38 | Consultation ---
Consult Note Consult Note Hematology CONSULT DOS: 01/29/18 REQ : Alfredito Sawyer RFC: Anemia eval, FTT ID Patient is a 67-year-old female who presented after increased hemoptysis the patient reports having increased blood tinged sputum. She had prior history of bronchiectasis as well as the remote history of TB. The patient states she had recently been treated with oral antibiotics after being diagnosed with pneumonia. She had taken 2 pills of azithromycin. She reports having increased generalized weakness. I have seen her before, she notes to have anemia and ca 19.9, this has been ordered, imaging has been reviewed Allergies: NO KNOWN ALLERGIES (Verified Allergy, Unknown, 09/04/17) Patient History Past Medical History: see triage record Now: No Reviewed Nursing Documentation: PMH: Agreed; PSxH: Agreed Past Medical History: No History, Except For Hx Cardiac Problems: Yes - mitral valve prolapse, heart murmur Hx Hypertension: Yes Hx COPD: Yes - Bronchiactesis Hx Cancer: No Hx Gastrointestinal Problems: Yes Hx Neurological Problems: Yes - Headaches, pinched nerve, left eye blindness Hx Headaches: Yes Hx Weakness: Yes Hx Fatigue: Yes Review of Systems All Other Systems: negative except mentioned in HPI ER Physical Exam - General Physical Exam Vital Signs Date Time Temp Pulse Resp B/P (MAP) Pulse Ox O2 Delivery O2 Flow Rate FiO2 01/29/18 08:43 98.8 59 20 139/64 98 Room Air 98.8 Sp02 EP Interpretation: reviewed, normal General Appearance: normal inspection, well appearing, no apparent distress, alert, GCS 15, Chronically Ill Head: atraumatic ENT: normal ENT inspection, hearing grossly normal, normal voice Neck: normal inspection, full range of motion, supple, no bony tend Respiratory: normal inspection, no respiratory distress, no retraction, rhonchi Cardiovascular #1: regular rate, rhythm, no edema Gastrointestinal: normal inspection Genitourinary: no CVA tenderness Musculoskeletal: normal inspection, back normal, normal range of motion Neurologic: normal inspection, alert, oriented x3 Labs Test 01/29/18 09:11 01/29/18 09:22 White Blood Count 5.1 K/UL (4.8-10.8) Red Blood Count 3.72 M/UL (4.20-5.40) Hemoglobin 11.7 G/DL (12.0-16.0) Hematocrit 35.5 % (37.0-47.0) Mean Corpuscular Volume 96 FL (80-99) Mean Corpuscular Hemoglobin 31.4 PG (27.0-31.0) Mean Corpuscular Hemoglobin Concent 32.8 G/DL (32.0-36.0) Red Cell Distribution Width 11.2 % (11.6-14.8) Platelet Count 175 K/UL (150-450) Mean Platelet Volume 8.0 FL (6.5-10.1) Neutrophils (%) (Auto) 58.2 % (45.0-75.0) Lymphocytes (%) (Auto) 21.5 % (20.0-45.0) Monocytes (%) (Auto) 14.2 % (1.0-10.0) Eosinophils (%) (Auto) 4.7 % (0.0-3.0) Basophils (%) (Auto) 1.4 % (0.0-2.0) Sodium Level 131 MMOL/L (136-145) Potassium Level 4.1 MMOL/L (3.5-5.1) Chloride Level 96 MMOL/L (98-107) Carbon Dioxide Level 27 MMOL/L (21-32) Anion Gap 8 mmol/L (5-15) Blood Urea Nitrogen 18 mg/dL (7-18) Creatinine 2.8 MG/DL (0.55-1.30) Estimat Glomerular Filtration Rate 20.6 mL/min (>60) Glucose Level 99 MG/DL (74-106) Lactic Acid Level 1.10 mmol/L (0.4-2.0) Calcium Level 10.0 MG/DL (8.5-10.1) Phosphorus Level 3.4 MG/DL (2.5-4.9) Magnesium Level 1.5 MG/DL (1.8-2.4) Total Bilirubin 0.7 MG/DL (0.2-1.0) Aspartate Amino Transf (AST/SGOT) 31 U/L (15-37) Alanine Aminotransferase (ALT/SGPT) 20 U/L (12-78) Alkaline Phosphatase 112 U/L (46-116) Total Creatine Kinase 150 U/L (26-308) Creatine Kinase MB 1.2 NG/ML (0.0-3.6) Creatine Kinase MB Relative Index 0.8 Troponin I 0.000 ng/mL (0.000-0.056) Pro-B-Type Natriuretic Peptide 399 pg/mL (0-125) Total Protein 7.7 G/DL (6.4-8.2) Albumin 3.6 G/DL (3.4-5.0) Globulin 4.1 g/dL Albumin/Globulin Ratio 0.9 (1.0-2.7) Urine Color Pale yellow Urine Appearance Clear Urine pH 6.5 (4.5-8.0) Urine Specific [place] 1.005 (1.005-1.035) Urine Protein Negative (NEGATIVE) Urine Glucose (UA) Negative (NEGATIVE) Urine Ketones Negative (NEGATIVE) Urine Occult Blood Negative (NEGATIVE) Urine Nitrite Negative (NEGATIVE) Urine Bilirubin Negative (NEGATIVE) Urine Urobilinogen Normal MG/DL (0.0-1.0) Urine Leukocyte Esterase 1+ (NEGATIVE) Urine RBC 0-2 /HPF (0 - 2) Urine WBC 0-2 /HPF (0 - 2) Urine Squamous Epithelial Cells Occasional /LPF Urine Bacteria Occasional /HPF (NONE) Assessment and Recs: # Anemia of chronic disease - have ordered panel to make sure b12, tsh, folate are wnl --> hgb goal are >7 --> monitor for hemoptysis improvement --> pulm consulted # Elevated ca19-9 in the past --> re-ordered tumor marker --> consider us abd if remains elevated # Anemia due to hemoptysis - currently improved # TB history - consider id eval # FRANCES on CKD # Scarring of lung base - could be related to above GREATLY APPRECIATE CONSULTATION Willie Avila MD Jan 29, 2018 14:38
[2018-01-29 16:00] VITALS: BP 132/64
[2018-01-29] MEDS ORDERED: Cefepime 1gm in D5W 55ml IVPB SCH (16:00)
[2018-01-29] MEDS ORDERED: Vancomycin 1250mg/D5W 250ml IVPB ONE (18:00)
[2018-01-29] MEDS ORDERED: Pred Forte 1% Opth Susp 1ml BOTH EYES SCH (18:00)
[2018-01-29] MEDS: Promethazine/Codeine 5ml UD ORAL PRN (18:09)
[2018-01-29 18:32] LABS: FERRITIN 156 NG/ML (8-388)
[2018-01-29 18:35] LABS: % IRON SATURATION 14 % (15-50); IRON 33 ug/dL (50-175); TOTAL IRON BINDING CAPACITY 244 ug/dL (250-450)
[2018-01-29 20:00] VITALS: BP 142/69
--- NOTE | 2018-01-29 20:02 | History and Physical Report ---
DATE OF ADMISSION: 01/29/2018 TIME SEEN: 2 p.m. CONSULTANTS: 1. Montse Hendrix M.D. 2. Wilmer Ann M.D 3. Katerina Malhotra M.D. 4. Willie Avila MD. 5. Juan Alberto Holt M.D. 6. Selena Howard M.D. 7. Nicholas Jacome M.D. CHIEF COMPLAINT: Hemoptysis, short of breath, anxious, bronchiectasis. BRIEF HISTORY: The patient is a 67-year-old female, who lives at home, presents with two-day increased shortness of breath, slight hemoptysis, also came to [facility], diagnosed with the above plus bronchiectasis, anxiety, admitted to telemetry for further care. Currently, slight short of breath, slightly anxious in bed, oriented x3, no acute distress. REVIEW OF SYSTEMS: No chest pain. Slight short of breath. No nausea, vomiting, diarrhea. PAST MEDICAL HISTORY: Bronchiectasis, COPD, hypertension, and anxiety. PAST SURGICAL HISTORY: Hysterectomy and right ankle. MEDICATIONS: Include: Norvasc, Cozaar, Zoloft, Aldactone, vancomycin, Coreg, Neurontin, cefepime, Pred-Forte, Tylenol, morphine, Zofran, intravenous fluids. ALLERGIES: None known. SOCIAL HISTORY: No smoking. No alcohol. No intravenous drug abuse. FAMILY HISTORY: Noncontributory. PHYSICAL EXAMINATION: GENERAL: Slightly anxious in bed, oriented x3, no acute distress. VITAL SIGNS: Temperature is 99, pulse 85, respiratory rate 15, blood pressure 122/65. CARDIOVASCULAR: No murmur. LUNGS: Poor exchange. ABDOMEN: Bowel sounds distant. EXTREMITIES: No cyanosis, clubbing, or edema. NEURLOGIC: The patient moves all extremities, slightly weak. LABORATORY AND DIAGNOSTIC DATA: Hemoglobin 11.7 otherwise CBC is normal. BMP shows sodium 131, chloride 96, creatinine 2.8. Troponin 0.00. BNP 399. Urinalysis show 1+ leukocyte esterase. ASSESSMENT: 1. Hemoptysis. 2. Shortness of breath. 3. Urinary tract infection. 4. Bronchiectasis. 5. Anxiety. 6. Chronic obstructive pulmonary disease. 7. Anemia. 8. Renal insufficiency. 9. Hypertension. PLAN: 1. O2 and pulmonary treatment. 2. Antibiotics per infectious disease. 3. Blood pressure and blood sugar control. 4. Dietary followup. 5. CBC and BMP in the morning. Cristi Sawyer D.O. DR: Ro JOB#: [id number] CC:
--- NOTE | 2018-01-29 20:55 | Cardiology Progress Note ---
Assessment/Plan Assessment/Plan The patient is seen and examined, full consult note will be dictated. Objective Last 24 Hour Vital Signs Date Time Temp Pulse Resp B/P (MAP) Pulse Ox O2 Delivery O2 Flow Rate FiO2 01/29/18 20:00 98.2 54 24 142/69 (93) 97 98.2 01/29/18 16:00 58 01/29/18 16:00 98.9 95 20 132/64 (86) 96 98.9 01/29/18 15:34 Room Air 01/29/18 12:50 55 01/29/18 12:41 99.0 85 15 122/65 100 Room Air 99.0 01/29/18 12:40 98.6 60 20 144/68 (93) 96 98.6 01/29/18 10:54 99.0 79 18 142/60 100 Room Air 99.0 01/29/18 09:35 51 16 100 Room Air 01/29/18 09:18 57 18 97 Room Air 01/29/18 09:15 57 16 Room Air 01/29/18 08:53 59 20 Room Air 01/29/18 08:53 98.8 20 139/64 98 Room Air 98.8 01/29/18 08:43 98.8 59 20 139/64 98 Room Air 98.8 Laboratory Tests Test 01/29/18 09:11 01/29/18 09:22 01/29/18 17:55 White Blood Count 5.1 K/UL (4.8-10.8) Red Blood Count 3.72 M/UL (4.20-5.40) L Hemoglobin 11.7 G/DL (12.0-16.0) L Hematocrit 35.5 % (37.0-47.0) L Mean Corpuscular Volume 96 FL (80-99) Mean Corpuscular Hemoglobin 31.4 PG (27.0-31.0) H Mean Corpuscular Hemoglobin Concent 32.8 G/DL (32.0-36.0) Red Cell Distribution Width 11.2 % (11.6-14.8) L Platelet Count 175 K/UL (150-450) Mean Platelet Volume 8.0 FL (6.5-10.1) Neutrophils (%) (Auto) 58.2 % (45.0-75.0) Lymphocytes (%) (Auto) 21.5 % (20.0-45.0) Monocytes (%) (Auto) 14.2 % (1.0-10.0) H Eosinophils (%) (Auto) 4.7 % (0.0-3.0) H Basophils (%) (Auto) 1.4 % (0.0-2.0) Sodium Level 131 MMOL/L (136-145) L Potassium Level 4.1 MMOL/L (3.5-5.1) Chloride Level 96 MMOL/L (98-107) L Carbon Dioxide Level 27 MMOL/L (21-32) Anion Gap 8 mmol/L (5-15) Blood Urea Nitrogen 18 mg/dL (7-18) Creatinine 2.8 MG/DL (0.55-1.30) H Estimat Glomerular Filtration Rate 20.6 mL/min (>60) Glucose Level 99 MG/DL (74-106) Lactic Acid Level 1.10 mmol/L (0.4-2.0) Calcium Level 10.0 MG/DL (8.5-10.1) Phosphorus Level 3.4 MG/DL (2.5-4.9) Magnesium Level 1.5 MG/DL (1.8-2.4) L Total Bilirubin 0.7 MG/DL (0.2-1.0) Aspartate Amino Transf (AST/SGOT) 31 U/L (15-37) Alanine Aminotransferase (ALT/SGPT) 20 U/L (12-78) Alkaline Phosphatase 112 U/L (46-116) Total Creatine Kinase 150 U/L (26-308) Creatine Kinase MB 1.2 NG/ML (0.0-3.6) Creatine Kinase MB Relative Index 0.8 Troponin I 0.000 ng/mL (0.000-0.056) Pro-B-Type Natriuretic Peptide 399 pg/mL (0-125) H Total Protein 7.7 G/DL (6.4-8.2) Albumin 3.6 G/DL (3.4-5.0) Globulin 4.1 g/dL Albumin/Globulin Ratio 0.9 (1.0-2.7) L Urine Color Pale yellow Urine Appearance Clear Urine pH 6.5 (4.5-8.0) Urine Specific [place] 1.005 (1.005-1.035) Urine Protein Negative (NEGATIVE) Urine Glucose (UA) Negative (NEGATIVE) Urine Ketones Negative (NEGATIVE) Urine Occult Blood Negative (NEGATIVE) Urine Nitrite Negative (NEGATIVE) Urine Bilirubin Negative (NEGATIVE) Urine Urobilinogen Normal MG/DL (0.0-1.0) Urine Leukocyte Esterase 1+ (NEGATIVE) H Urine RBC 0-2 /HPF (0 - 2) Urine WBC 0-2 /HPF (0 - 2) Urine Squamous Epithelial Cells Occasional /LPF Urine Bacteria Occasional /HPF (NONE) Fibrinogen 367 mg/dL (200-400) Iron Level 33 ug/dL (50-175) L Total Iron Binding Capacity 244 ug/dL (250-450) L Percent Iron Saturation 14 % (15-50) L Unsaturated Iron Binding 211 ug/dL (112-346) Ferritin 156 NG/ML (8-388) CA 19-9 Antigen Pending Folate 17.4 NG/ML (8.6-58.9) Juan Alberto Holt MD Jan 29, 2018 20:55
[2018-01-29] MEDS ORDERED: Carvedilol 12.5mg tab ORAL SCH (21:00)
[2018-01-29] MEDS ORDERED: Cefepime HCl 2 GM in D5W 110 ML IV SCH (21:00)
[2018-01-29] MEDS ORDERED: Vancomycin 1 GM in D5W 275 ML IV SCH (23:00)
[2018-01-30] VITALS: BP 137/74
[2018-01-30 04:00] VITALS: BP 148/63
[2018-01-30 07:46] LABS: BASOPHILS % (AUTO) 0.6 % (0.0-2.0); EOSINOPHILS % (AUTO) 4.7 % (0.0-3.0); HEMATOCRIT 33.2 % (37.0-47.0); HEMOGLOBIN 10.9 G/DL (12.0-16.0); LYMPHOCYTES % (AUTO) 24.7 % (20.0-45.0); MEAN CORPUSCULAR VOLUME 95 FL (80-99); MONOCYTES % (AUTO) 14.1 % (1.0-10.0); NEUTROPHILS % (AUTO) 55.9 % (45.0-75.0); PLATELET COUNT 170 K/UL (150-450); RED BLOOD COUNT 3.48 M/UL (4.20-5.40); RED CELL DISTRIBUTION WIDTH 11.5 % (11.6-14.8); WHITE BLOOD COUNT 4.9 K/UL (4.8-10.8)
[2018-01-30 08:00] VITALS: BP 127/57
[2018-01-30 08:06] LABS: ALBUMIN 3.3 G/DL (3.4-5.0); ANION GAP 7 mmol/L (5-15); BLOOD UREA NITROGEN 18 mg/dL (7-18); CARBON DIOXIDE 28 MMOL/L (21-32); CHLORIDE 100 MMOL/L (98-107); CREATININE 2.7 MG/DL (0.55-1.30); PHOSPHORUS 3.9 MG/DL (2.5-4.9); POTASSIUM 4.4 MMOL/L (3.5-5.1); SODIUM 135 MMOL/L (136-145)
--- NOTE | 2018-01-30 08:30 | Nephrology Progress Note ---
Assessment/Plan Plan pt seen and examined full consult dictated Objective Objective Last 24 Hour Vital Signs Date Time Temp Pulse Resp B/P (MAP) Pulse Ox O2 Delivery O2 Flow Rate FiO2 01/30/18 04:00 98.0 54 20 148/63 (91) 98 98.0 01/30/18 03:33 58 01/30/18 00:00 55 01/30/18 00:00 98.4 55 24 137/74 (95) 98 98.4 01/29/18 21:00 54 142/69 01/29/18 21:00 Room Air 01/29/18 20:00 56 01/29/18 20:00 98.2 54 24 142/69 (93) 97 98.2 01/29/18 19:30 55 18 Room Air 21 01/29/18 16:00 58 01/29/18 16:00 98.9 95 20 132/64 (86) 96 98.9 01/29/18 15:34 Room Air 01/29/18 12:50 55 01/29/18 12:41 99.0 85 15 122/65 100 Room Air 99.0 01/29/18 12:40 98.6 60 20 144/68 (93) 96 98.6 01/29/18 10:54 99.0 79 18 142/60 100 Room Air 99.0 01/29/18 09:35 51 16 100 Room Air 01/29/18 09:18 57 18 97 Room Air 01/29/18 09:15 57 16 Room Air 01/29/18 08:53 59 20 Room Air 01/29/18 08:53 98.8 20 139/64 98 Room Air 98.8 01/29/18 08:43 98.8 59 20 139/64 98 Room Air 98.8 Intake and Output 01/29/18 01/30/18 19:00 07:00 Intake Total 350 ml 493 ml Balance 350 ml 493 ml Intake Oral 240 ml IV Total 110 ml 493 ml Laboratory Tests 01/29/18 09:11: White Blood Count 5.1, Red Blood Count 3.72L, Hemoglobin 11.7L, Hematocrit 35.5L , Mean Corpuscular Volume 96, Mean Corpuscular Hemoglobin 31.4H, Mean Corpuscular Hemoglobin Concent 32.8, Red Cell Distribution Width 11.2L, Platelet Count 175, Mean Platelet Volume 8.0, Neutrophils (%) (Auto) 58.2, Lymphocytes (%) (Auto) 21.5, Monocytes (%) (Auto) 14.2H, Eosinophils (%) (Auto) 4.7H, Basophils (%) (Auto) 1.4, Sodium Level 131L, Potassium Level 4.1, Chloride Level 96L, Carbon Dioxide Level 27, Anion Gap 8, Blood Urea Nitrogen 18 , Creatinine 2.8H, Estimat Glomerular Filtration Rate 20.6, Glucose Level 99, Lactic Acid Level 1.10, Calcium Level 10.0, Phosphorus Level 3.4, Magnesium Level 1.5L, Total Bilirubin 0.7, Aspartate Amino Transf (AST/SGOT) 31, Alanine Aminotransferase (ALT/SGPT) 20, Alkaline Phosphatase 112, Total Creatine Kinase 150, Creatine Kinase MB 1.2, Creatine Kinase MB Relative Index 0.8, Troponin I 0.000, Pro-B-Type Natriuretic Peptide 399H, Total Protein 7.7, Albumin 3.6, Globulin 4.1, Albumin/Globulin Ratio 0.9L 01/29/18 09:22: Urine Color Pale yellow, Urine Appearance Clear, Urine pH 6.5, Urine Specific [employer] 1.005, Urine Protein Negative, Urine Glucose (UA) Negative, Urine Ketones Negative, Urine Occult Blood Negative, Urine Nitrite Negative, Urine Bilirubin Negative, Urine Urobilinogen Normal, Urine Leukocyte Esterase 1+H, Urine RBC 0-2, Urine WBC 0-2, Urine Squamous Epithelial Cells Occasional, Urine Bacteria Occasional 01/29/18 17:55: Fibrinogen 367, Iron Level 33L, Total Iron Binding Capacity 244L, Percent Iron Saturation 14L, Unsaturated Iron Binding 211, Ferritin 156, [place] 19-9 Antigen [ Pending], Folate 17.4 01/30/18 06:13: White Blood Count 4.9, Red Blood Count 3.48L, Hemoglobin 10.9L, Hematocrit 33.2L , Mean Corpuscular Volume 95, Mean Corpuscular Hemoglobin 31.4H, Mean Corpuscular Hemoglobin Concent 32.9, Red Cell Distribution Width 11.5L, Platelet Count 170, Mean Platelet Volume 8.4, Neutrophils (%) (Auto) 55.9, Lymphocytes (%) (Auto) 24.7, Monocytes (%) (Auto) 14.1H, Eosinophils (%) (Auto) 4.7H, Basophils (%) (Auto) 0.6, Sodium Level [Pending], Potassium Level [Pending ], Chloride Level [Pending], Carbon Dioxide Level [Pending], Anion Gap 7, Blood Urea Nitrogen [Pending], Creatinine [Pending], Estimat Glomerular Filtration Rate [Pending], Glucose Level [Pending], Calcium Level [Pending], Phosphorus Level 3.9, Albumin 3.3L, Random Vancomycin Level [Pending] Height (Feet): 5 Height (Inches): 10.00 Weight (Pounds): 209 Selena Howard MD Jan 30, 2018 08:30
[2018-01-30] MEDS: Carvedilol 12.5mg tab ORAL SCH ×2 (09:00→20:41)
[2018-01-30] MEDS: Losartan 50mg tab ORAL SCH (09:00)
[2018-01-30] MEDS: Spironolactone 25mg tab ORAL SCH (09:09)
[2018-01-30] MEDS: Sertraline 100mg tab ORAL SCH (09:09)
[2018-01-30] MEDS: Pred Forte 1% Opth Susp 1ml LEFT EYE SCH ×2 (09:10→17:06)
[2018-01-30 09:23] LABS: ANION GAP 8 mmol/L (5-15); BLOOD UREA NITROGEN 19 mg/dL (7-18); CALCIUM 10.4 MG/DL (8.5-10.1); CARBON DIOXIDE 27 MMOL/L (21-32); CHLORIDE 101 MMOL/L (98-107); CREATININE 2.7 MG/DL (0.55-1.30); POTASSIUM 4.3 MMOL/L (3.5-5.1); SODIUM 135 MMOL/L (136-145)
[2018-01-30] MEDS: Promethazine/Codeine 5ml UD ORAL PRN ×2 (10:16→17:15)
[2018-01-30] MEDS: Albuterol/Ipratropium 3ml neb HHN PRN ×2 (10:19→14:17)
[2018-01-30 12:00] VITALS: BP 130/61
[2018-01-30] MEDS ORDERED: Vancomycin 1 GM in D5W 275 ML IVPB SCH (12:00)
[2018-01-30] MEDS ORDERED: Vancomycin 1250mg/D5W 250ml 250 ML IVPB ONE (12:00)
--- NOTE | 2018-01-30 12:03 | Consultation ---
History of Present Illness General Date patient seen: Jan 30, 2018 Chief Complaint: Upper Respiratory Illness Reason for Consultation: Possible PNA Present Illness HPI Ms Sanchez is a 67 yo female with PMHx of Bronchiectasias and COPD who presented to the ED on 01/29/18 with SOB and mild hemoptysis. She has a long history of lung problems and a history of TB treat about 20 years ago. She report that she wa treated fully at the time 1 year at [facility]. She say that she has some SOB at baseline and cough. He cough and SOB has been worse over the last few days and she felt that she had a fever. She reports no sick contacts, No N/V/D or abdominal pain, She does have GERD. She says that she is comfortable at this time off O2 but is getting breathing treatment and some time still need O2. PMHx # TB S/P Tx 20 years ago #Bronchiectasis #COPD #Hypertension #Anxiety PSHx Hysterectomy Right ankle. SocHx No smoking. No alcohol. No intravenous drug abuse. FamHx Noncontributory. Allergies: Coded Allergies: NO KNOWN ALLERGIES (Verified Allergy, Unknown, 09/04/17) Medication History Scheduled Amlodipine Besylate* (Amlodipine Besylate*), 10 MG ORAL DAILY, (Reported) Aspirin (Aspirin EC), 81 MG ORAL DAILY, (Reported) Atorvastatin Calcium* (Atorvastatin Calcium*), 20 MG ORAL DAILY, (Reported) Baclofen (Baclofen), 20 MG ORAL QHS, (Reported) Carvedilol* (Carvedilol*), 12.5 MG ORAL EVERY 12 HOURS, (Reported) Esomeprazole Magnesium (Nexium), 40 MG ORAL DAILY, (Reported) Fluticasone Propionate (Flovent Diskus), 50 MCG INH EVERY 4 HOURS, (Reported) Gabapentin* (Gabapentin*), 600 MG ORAL QHS, (Reported) Ipratropium/Albuterol Sulfate (Combivent Inhaler), 2 PUFFS INH QID, (Reported) Losartan Potassium* (Cozaar*), 50 MG ORAL DAILY, (Reported) Mometasone Furoate (Nasonex), 1 SPRAY NASAL DAILY, (Reported) Multivitamin (Multivitamins), 1 CAP ORAL DAILY, (Reported) Omeprazole (Omeprazole), 40 MG ORAL DAILY, (Reported) Prednisolone Acetate (Prednisolone Acetate), 2 DROP BOTH EYES TWICE A DAY, ( Reported) Sertraline Hcl* (Zoloft*), 100 MG ORAL DAILY, (Reported) Spironolactone (Aldactone), 12.5 MG ORAL DAILY, (Reported) Trimethoprim/Sulfamethoxazole (Bactrim 400-80 mg Tablet), 1 TAB ORAL BID, ( Reported) Scheduled PRN Acetaminophen* (Tylenol*), 650 MG PO Q4H PRN for Fever/Headache/Mild Pain, ( Reported) Acetaminophen* (Tylenol*), 650 MG PO Q4H PRN for Fever/Headache/Mild Pain, ( Reported) Calcipotriene (Calcipotriene), 60 GM TP for Itching/Pruritis, (Reported) Diphenhydramine Hcl* (Benadryl*), 25 MG ORAL Q6H PRN for Itching, (Reported) Docusate Sodium* (Colace*), 100 MG ORAL THREE TIMES A DAY PRN for Constipation, (Reported) Doxepin HCl (Doxepin HCl), 45 GM TP for Itching, (Reported) Ipratropium/Albuterol Sulfate (DuoNeb 0.5-3(2.5)mg/3ml), 3 ML HHN EVERY 4 HOURS PRN for Shortness of breath, (Reported) Mag Hydrox/Al Hydrox/Simeth (Alum-Mag Hydroxide-Simeth Liq), 30 ML PO Q6HR PRN for Abdominal cramps, (Reported) Nitroglycerin (Nitroglycerin), 0.4 MG SL for Prn Chest Pain, (Reported) Nitroglycerin (Nitroglycerin), 0.4 MG SL [id number] PRN for Prn Chest Pain, ( Reported) Polyethylene Glycol 3350* (Miralax*), 17 GM ORAL BEDTIME PRN for Constipation, ( Reported) Promethazine HCl/Codeine (Prometh-Codein 6.25-10 mg/5 ml), 5 ML PO for For Cough , (Reported) Promethazine Hcl* (Phenergan*), 25 MG ORAL THREE TIMES A DAY PRN for Nausea & Vomiting, (Reported) Temazepam (Temazepam*), 15 MG ORAL BEDTIME PRN for Insomnia, (Reported) Patient History Healthcare decision maker Resuscitation status Advanced Directive on File Review of Systems All Other Systems: negative except mentioned in HPI Physical Exam Last 24 Hour Vital Signs Date Time Temp Pulse Resp B/P (MAP) Pulse Ox O2 Delivery O2 Flow Rate FiO2 01/30/18 10:29 55 18 98 Room Air 21 01/30/18 09:00 Room Air 01/30/18 09:00 70 127/57 01/30/18 09:00 127/57 01/30/18 09:00 71 127/57 01/30/18 08:00 97.9 71 20 127/57 (80) 94 97.9 01/30/18 04:00 98.0 54 20 148/63 (91) 98 98.0 01/30/18 03:33 58 01/30/18 00:00 55 01/30/18 00:00 98.4 55 24 137/74 (95) 98 98.4 01/29/18 21:00 54 142/69 01/29/18 21:00 Room Air 01/29/18 20:00 56 01/29/18 20:00 98.2 54 24 142/69 (93) 97 98.2 01/29/18 19:30 55 18 Room Air 21 01/29/18 16:00 58 01/29/18 16:00 98.9 95 20 132/64 (86) 96 98.9 01/29/18 15:34 Room Air 01/29/18 12:50 55 01/29/18 12:41 99.0 85 15 122/65 100 Room Air 99.0 01/29/18 12:40 98.6 60 20 144/68 (93) 96 98.6 Intake and Output 01/29/18 01/30/18 19:00 07:00 Intake Total 350 ml 493 ml Balance 350 ml 493 ml Intake Oral 240 ml IV Total 110 ml 493 ml Laboratory Tests Test 01/29/18 17:55 01/30/18 06:13 Fibrinogen 367 mg/dL (200-400) Iron Level 33 ug/dL (50-175) L Total Iron Binding Capacity 244 ug/dL (250-450) L Percent Iron Saturation 14 % (15-50) L Unsaturated Iron Binding 211 ug/dL (112-346) Ferritin 156 NG/ML (8-388) CA 19-9 Antigen Pending Folate 17.4 NG/ML (8.6-58.9) White Blood Count 4.9 K/UL (4.8-10.8) Red Blood Count 3.48 M/UL (4.20-5.40) L Hemoglobin 10.9 G/DL (12.0-16.0) L Hematocrit 33.2 % (37.0-47.0) L Mean Corpuscular Volume 95 FL (80-99) Mean Corpuscular Hemoglobin 31.4 PG (27.0-31.0) H Mean Corpuscular Hemoglobin Concent 32.9 G/DL (32.0-36.0) Red Cell Distribution Width 11.5 % (11.6-14.8) L Platelet Count 170 K/UL (150-450) Mean Platelet Volume 8.4 FL (6.5-10.1) Neutrophils (%) (Auto) 55.9 % (45.0-75.0) Lymphocytes (%) (Auto) 24.7 % (20.0-45.0) Monocytes (%) (Auto) 14.1 % (1.0-10.0) H Eosinophils (%) (Auto) 4.7 % (0.0-3.0) H Basophils (%) (Auto) 0.6 % (0.0-2.0) Sodium Level 135 MMOL/L (136-145) L Potassium Level 4.3 MMOL/L (3.5-5.1) Chloride Level 101 MMOL/L (98-107) Carbon Dioxide Level 27 MMOL/L (21-32) Anion Gap 8 mmol/L (5-15) Blood Urea Nitrogen 19 mg/dL (7-18) H Creatinine 2.7 MG/DL (0.55-1.30) H Estimat Glomerular Filtration Rate 21.5 mL/min (>60) Glucose Level 111 MG/DL (74-106) H Calcium Level 10.4 MG/DL (8.5-10.1) H Phosphorus Level 3.9 MG/DL (2.5-4.9) Albumin 3.3 G/DL (3.4-5.0) L Random Vancomycin Level 14.7 ug/mL Height (Feet): 5 Height (Inches): 10.00 Weight (Pounds): 209 Medications Current Medications Medications (Trade) Dose Ordered Sig/Suraj Route PRN Reason Start Time Stop Time Status Last Admin Dose Admin Acetaminophen (Tylenol) 650 mg Q4H PRN ORAL FEVER 01/29/18 14:15 02/28/18 14:14 Albuterol/ Ipratropium (Albuterol/ Ipratropium) 3 ml Q4H PRN HHN Shortness of Breath 01/29/18 14:15 02/03/18 14:14 01/30/18 10:19 Amlodipine Besylate (Norvasc) 10 mg DAILY ORAL 01/30/18 09:00 03/01/18 08:59 Carvedilol (Coreg) 12.5 mg EVERY 12 HOURS ORAL 01/30/18 09:00 03/01/18 08:59 Cefepime HCl 1 gm/ Dextrose 55 ml @ 110 mls/hr Q24H IVPB 01/29/18 16:00 02/05/18 15:59 01/29/18 15:20 Dextrose (Dextrose 50%) STAT PRN IV Hypoglycemia 01/29/18 14:15 02/28/18 14:14 Gabapentin (Neurontin) 600 mg QHS ORAL 01/29/18 21:00 02/28/18 20:59 01/29/18 21:04 Lorazepam (Ativan 2mg/ml 1ml) 2 mg Q2H PRN IV For Anxiety 01/29/18 14:15 02/05/18 14:14 Losartan Potassium (Cozaar) 50 mg DAILY ORAL 01/30/18 09:00 03/01/18 08:59 Morphine Sulfate (Morphine Sulfate) 4 mg Q4H PRN IVP Severe Pain (Pain Scale 7-10) 01/29/18 14:15 02/05/18 14:14 Ondansetron HCl (Zofran) 4 mg Q6H PRN IVP Nausea & Vomiting 01/29/18 14:15 02/28/18 14:14 Polyethylene Glycol (Miralax) 17 gm DAILYPRN PRN ORAL Constipation 01/29/18 14:15 02/28/18 14:14 Prednisolone Acetate (Pred Forte) 2 drop TWICE A DAY LEFT EYE 01/30/18 09:00 02/28/18 17:59 01/30/18 09:10 Promethazine HCl/ Codeine (Phenergan with Codeine) 5 ml Q6H PRN ORAL For Cough 01/29/18 18:00 02/28/18 17:59 01/30/18 10:16 Sertraline HCl (Zoloft) 100 mg DAILY ORAL 01/30/18 09:00 03/01/18 08:59 01/30/18 09:09 Sodium Chloride 1,000 ml @ 50 mls/hr Q20H IV 01/29/18 14:08 02/28/18 14:07 01/30/18 10:16 Spironolactone (Aldactone) 12.5 mg DAILY ORAL 01/30/18 09:00 03/01/18 08:59 01/30/18 09:09 Vancomycin HCl (Vanco rx to dose) 1 ea DAILY PRN MISC VANCO PER PHARMACY 01/29/18 16:00 02/28/18 15:59 Vancomycin HCl/ Dextrose 250 ml @ 166.667 mls/hr ONCE ONCE IVPB 01/30/18 12:00 01/30/18 13:29 Objective Narrative Gen: NAD, well appearing, alert HEENT: NCAT, MMM, EOMI, PERRL, No Oral lesion, no scleral icterus NECK: full range of motion, supple, no meningismus, No LAD, No JVD LUNGS: Generally no W/C, some mild crackle i the bases CARDS: RRR, S1, S2, No M/R/G ABD: Soft, NT, ND, No R/G, + BS, No HSM, No Masses : Deferred Ext: C/C/E, Pulses 2+ B/L (DP, Rad) NEURO: A/O x 4, Strength and Sensation Grossly intact PSYCH: mood/affect normal SKIN:~ warm/dry, No rashes Assessment/Plan Assessment/Plan 67 yo female with PMHx of Bronchiectasiss and COPD who presented to the ED on with SOB and mild hemoptysis. # SOB More likely to be COPD exacerbation then PNA - No evidence of PNA on imaging - CXR - 01/29/18 - Extensive chronic appearing abnormality of the left lung, unchanged from earlier studies. Right perihilar scarring, unchanged No definite acute process - Sputum cultures pending # Hemoptysis Mild likley secondary to coughing and bronchiectasis - Low suspicion of active Tb give previous treatment and lack of typical TB finding on lung imaging # TB S/P Tx 20 years ago #Bronchiectasis #COPD #Hypertension #Anxiety PLAN: -Start - Levofloxacin #06/23 for PNA D/C Vancomycin #1 and Cefepime # - Sputum Cultures - Monitor Temps and CBC Thank you for consulting us for the care of this patient. We will continue to follow with you. Marques Ying M.D. Jan 30, 2018 12:03
--- NOTE | 2018-01-30 13:48 | Diagnostic Imaging Report ---
Indication: Acute renal failure Technique: Grayscale and duplex images of the kidneys, retroperitoneum, and bladder were obtained. Comparison: Abdominal ultrasound dated 09/04/2017 Findings: Right kidney measures 9.2 cm in length. Left kidney measures 10.6 cm in length. Both kidneys demonstrate normal echogenicity. There is mild hydronephrosis on the right which persists after voiding. Both kidneys demonstrate upper pole cysts. Questionable calcifications are seen in the left renal sinus.. Normal inferior vena cava. Prevoid bladder volume is 633 mL. Postvoid bladder volume is 33 mL. Impression: Mild right hydronephrosis, etiology not demonstrated. This is also demonstrated on ultrasound 09/04/2017. Subsequent 09/07/2017 CT demonstrated mild right renal collecting system fullness without definite obstructive pathology. Findings therefore may just be baseline for this patient. Distended prevoid bladder. 33 mL postvoid residual Prominent echoes in the left renal sinus. Probably artifactual as no calculi are demonstrated on prior CT scan Incidental finding of bilateral renal cysts
--- NOTE | 2018-01-30 14:32 | General Progress Note ---
Assessment/Plan Problem List: (1) COPD (chronic obstructive pulmonary disease) ICD Codes: J44.9 - Chronic obstructive pulmonary disease, unspecified SNOMED: 43012000 (2) UTI (urinary tract infection) ICD Codes: N39.0 - Urinary tract infection, site not specified SNOMED: 72035554 (3) Anxiety ICD Codes: F41.9 - Anxiety disorder, unspecified SNOMED: 68062128 (4) Anemia ICD Codes: D64.9 - Anemia, unspecified SNOMED: 833719154 (5) Renal insufficiency ICD Codes: N28.9 - Disorder of kidney and ureter, unspecified SNOMED: 329948831, 979377147 (6) SOB (shortness of breath) ICD Codes: R06.02 - Shortness of breath SNOMED: 301090684 (7) Weak ICD Codes: R53.1 - Weakness SNOMED: 51241759 (8) Hemoptysis, unspecified ICD Codes: R04.2 - Hemoptysis SNOMED: 26844039 (9) Hx of tuberculosis ICD Codes: Z86.11 - Personal history of tuberculosis SNOMED: 855846357 (10) Bronchiectasis ICD Codes: J47.9 - Bronchiectasis, uncomplicated SNOMED: 71728641 Status: unchanged Assessment/Plan ot pt diet o2 pulm tx abx cbc bmp am Subjective Constitutional: Reports: weakness Respiratory: Reports: shortness of breath Allergies: Coded Allergies: NO KNOWN ALLERGIES (Verified Allergy, Unknown, 09/04/17) All Systems: reviewed and negative except above Subjective sl anxious Objective Last 24 Hour Vital Signs Date Time Temp Pulse Resp B/P (MAP) Pulse Ox O2 Delivery O2 Flow Rate FiO2 01/30/18 14:28 58 18 99 Room Air 01/30/18 14:18 58 18 95 Room Air 01/30/18 12:00 98.0 57 20 130/61 (84) 95 98.0 01/30/18 12:00 51 01/30/18 10:29 55 18 98 Room Air 01/30/18 09:00 Room Air 01/30/18 09:00 70 127/57 01/30/18 09:00 127/57 01/30/18 09:00 71 127/57 01/30/18 08:00 58 18 Room Air 21 01/30/18 08:00 52 01/30/18 08:00 97.9 71 20 127/57 (80) 94 97.9 01/30/18 04:00 98.0 54 20 148/63 (91) 98 98.0 01/30/18 03:33 58 01/30/18 00:00 55 01/30/18 00:00 98.4 55 24 137/74 (95) 98 98.4 01/29/18 21:00 54 142/69 01/29/18 21:00 Room Air 01/29/18 20:00 56 01/29/18 20:00 98.2 54 24 142/69 (93) 97 98.2 01/29/18 19:30 55 18 Room Air 21 01/29/18 16:00 58 01/29/18 16:00 98.9 95 20 132/64 (86) 96 98.9 01/29/18 15:34 Room Air Intake and Output 01/29/18 01/30/18 19:00 07:00 Intake Total 350 ml 493 ml Balance 350 ml 493 ml Intake Oral 240 ml IV Total 110 ml 493 ml Laboratory Tests 01/29/18 17:55: Fibrinogen 367, Iron Level 33L, Total Iron Binding Capacity 244L, Percent Iron Saturation 14L, Unsaturated Iron Binding 211, Ferritin 156, CA 19-9 Antigen [ Pending], Folate 17.4 01/30/18 06:13: White Blood Count 4.9, Red Blood Count 3.48L, Hemoglobin 10.9L, Hematocrit 33.2L , Mean Corpuscular Volume 95, Mean Corpuscular Hemoglobin 31.4H, Mean Corpuscular Hemoglobin Concent 32.9, Red Cell Distribution Width 11.5L, Platelet Count 170, Mean Platelet Volume 8.4, Neutrophils (%) (Auto) 55.9, Lymphocytes (%) (Auto) 24.7, Monocytes (%) (Auto) 14.1H, Eosinophils (%) (Auto) 4.7H, Basophils (%) (Auto) 0.6, Sodium Level 135L, Potassium Level 4.3, Chloride Level 101, Carbon Dioxide Level 27, Anion Gap 8, Blood Urea Nitrogen 19H, Creatinine 2.7H, Estimat Glomerular Filtration Rate 21.5, Glucose Level 111H, Calcium Level 10.4H, Phosphorus Level 3.9, Albumin 3.3L, Random Vancomycin Level 14.7 Height (Feet): 5 Height (Inches): 10.00 Weight (Pounds): 209 General Appearance: lethargic EENT: normal ENT inspection Neck: normal alignment Cardiovascular: normal peripheral pulses, normal rate, regular rhythm Respiratory/Chest: chest wall non-tender, decreased breath sounds Abdomen: normal bowel sounds, non tender, soft Extremities: normal inspection Edema: no edema noted Arm (L), no edema noted Arm (R), no edema noted Leg (L), no edema noted Leg (R), no edema noted Pedal (L), no edema noted Pedal (R), no edema noted Generalized Neurologic: responsive, motor weakness Skin: normal pigmentation, warm/dry Cristi Sawyer DO Jan 30, 2018 14:32
--- NOTE | 2018-01-30 14:50 | Cardiology Report ---
APPROVED REPORT EXAM: Two-dimensional and M-mode echocardiogram with Doppler and color Doppler. INDICATION Mitral valve disorder M-Mode DIMENSIONS IVSd1.5 (0.7-1.1cm)Left Atrium (MM)3.4 (1.6-4.0cm) LVDd4.1 (3.5-5.6cm)Aortic Root3.2 (2.0-3.7cm) PWd1.1 (0.7-1.1cm)Aortic Cusp Exc.1.9 (1.5-2.0cm) LVDs2.1 (2.5-4.0cm) PWs1.7 cm Technically difficult study due to poor acoustic windows. Study quality precludes accurate assessment of regional wall motion. Normal left ventricular chamber size, systolic function and wall motion. Left ventricular ejection fraction estimated to be 60-65 %. Mild left ventricular hypertrophy. No evidence of pericardial effusion. Left atrial size at upper limits of normal. Right cardiac chamber sizes are within normal limits. Mild focal aortic valve sclerosis with adequate cusp excursion. Moderatly thickened mitral valve leaflets with normal excursion. Mild mitral annulus and aortic root calcification. Normal pulmonic valve structure. Normal tricuspid valve structure. IVC is normal in size with physiological collapse. A color flow and spectral Doppler study was performed and revealed: No aortic insufficiency. Mild mitral regurgitation. Mitral diastolic velocities suggest mild left ventricular diastolic dysfunction (Grade I). Mild tricuspid regurgitation. Tricuspid systolic velocities suggests peak right ventricular systolic pressure of 40 mmHg, consistent with mild pulmonary hypertension. No pulmonic regurgitation present.
[2018-01-30 16:00] VITALS: BP 126/64
[2018-01-30] MEDS ORDERED: Lidocaine 1% MPF 10mg/ml 5ml HHN PRN (16:30)
--- NOTE | 2018-01-30 16:34 | Pulmonology Progress Note ---
Assessment/Plan Problems: (1) Hemoptysis, unspecified (2) Bronchiectasis (3) Anxiety (4) COPD (chronic obstructive pulmonary disease) (5) Hx of tuberculosis Assessment/Plan check sputum iv abx titrate fio2 to sat of 92% check electrolytes Lidocain inhalation for refractory cough Subjective ROS Limited/Unobtainable: No Constitutional: Reports: no symptoms HEENT: Repors: no symptoms Respiratory: Reports: no symptoms Allergies: Coded Allergies: NO KNOWN ALLERGIES (Verified Allergy, Unknown, 09/04/17) Objective Last 24 Hour Vital Signs Date Time Temp Pulse Resp B/P (MAP) Pulse Ox O2 Delivery O2 Flow Rate FiO2 01/30/18 14:28 58 18 99 Room Air 21 01/30/18 14:18 58 18 95 Room Air 01/30/18 12:00 98.0 57 20 130/61 (84) 95 98.0 01/30/18 12:00 51 01/30/18 10:29 55 18 98 Room Air 21 01/30/18 09:00 Room Air 01/30/18 09:00 70 127/57 01/30/18 09:00 127/57 01/30/18 09:00 71 127/57 01/30/18 08:00 58 18 Room Air 21 01/30/18 08:00 52 01/30/18 08:00 97.9 71 20 127/57 (80) 94 97.9 01/30/18 04:00 98.0 54 20 148/63 (91) 98 98.0 01/30/18 03:33 58 01/30/18 00:00 55 01/30/18 00:00 98.4 55 24 137/74 (95) 98 98.4 01/29/18 21:00 54 142/69 01/29/18 21:00 Room Air 01/29/18 20:00 56 01/29/18 20:00 98.2 54 24 142/69 (93) 97 98.2 01/29/18 19:30 55 18 Room Air 21 Intake and Output 01/29/18 01/30/18 19:00 07:00 Intake Total 350 ml 493 ml Balance 350 ml 493 ml Intake Oral 240 ml IV Total 110 ml 493 ml General Appearance: WD/WN HEENT: normocephalic, atraumatic Respiratory/Chest: chest wall non-tender, normal breath sounds Cardiovascular: normal peripheral pulses, normal rate Abdomen: normal bowel sounds, soft, non tender Extremities: no cyanosis 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 grossly normal Lymphatic: no neck adenopathy Laboratory Tests 01/29/18 17:55: Fibrinogen 367, Iron Level 33L, Total Iron Binding Capacity 244L, Percent Iron Saturation 14L, Unsaturated Iron Binding 211, Ferritin 156, CA 19-9 Antigen [ Pending], Folate 17.4 01/30/18 06:13: White Blood Count 4.9, Red Blood Count 3.48L, Hemoglobin 10.9L, Hematocrit 33.2L , Mean Corpuscular Volume 95, Mean Corpuscular Hemoglobin 31.4H, Mean Corpuscular Hemoglobin Concent 32.9, Red Cell Distribution Width 11.5L, Platelet Count 170, Mean Platelet Volume 8.4, Neutrophils (%) (Auto) 55.9, Lymphocytes (%) (Auto) 24.7, Monocytes (%) (Auto) 14.1H, Eosinophils (%) (Auto) 4.7H, Basophils (%) (Auto) 0.6, Sodium Level 135L, Potassium Level 4.3, Chloride Level 101, Carbon Dioxide Level 27, Anion Gap 8, Blood Urea Nitrogen 19H, Creatinine 2.7H, Estimat Glomerular Filtration Rate 21.5, Glucose Level 111H, Calcium Level 10.4H, Phosphorus Level 3.9, Albumin 3.3L, Random Vancomycin Level 14.7 Current Medications Medications (Trade) Dose Ordered Sig/Suraj Route PRN Reason Start Time Stop Time Status Last Admin Dose Admin Acetaminophen (Tylenol) 650 mg Q4H PRN ORAL FEVER 01/29/18 14:15 02/28/18 14:14 01/30/18 15:29 Albuterol/ Ipratropium (Albuterol/ Ipratropium) 3 ml Q4H PRN HHN Shortness of Breath 01/29/18 14:15 02/03/18 14:14 01/30/18 14:17 Amlodipine Besylate (Norvasc) 10 mg DAILY ORAL 01/30/18 09:00 03/01/18 08:59 Carvedilol (Coreg) 12.5 mg EVERY 12 HOURS ORAL 01/30/18 09:00 03/01/18 08:59 Dextrose (Dextrose 50%) STAT PRN IV Hypoglycemia 01/29/18 14:15 02/28/18 14:14 Gabapentin (Neurontin) 600 mg QHS ORAL 01/29/18 21:00 02/28/18 20:59 01/29/18 21:04 Levofloxacin (Levaquin) 750 mg Q48H ORAL 01/30/18 14:45 02/06/18 14:44 01/30/18 14:50 Lidocaine (Xylocaine 1% MPF 5ml) 10 ml Q4H PRN HHN cough 01/30/18 16:30 03/01/18 16:29 Lorazepam (Ativan 2mg/ml 1ml) 2 mg Q2H PRN IV For Anxiety 01/29/18 14:15 02/05/18 14:14 Losartan Potassium (Cozaar) 50 mg DAILY ORAL 01/30/18 09:00 03/01/18 08:59 Morphine Sulfate (Morphine Sulfate) 4 mg Q4H PRN IVP Severe Pain (Pain Scale 7-10) 01/29/18 14:15 02/05/18 14:14 Ondansetron HCl (Zofran) 4 mg Q6H PRN IVP Nausea & Vomiting 01/29/18 14:15 02/28/18 14:14 Polyethylene Glycol (Miralax) 17 gm DAILYPRN PRN ORAL Constipation 01/29/18 14:15 02/28/18 14:14 Prednisolone Acetate (Pred Forte) 2 drop TWICE A DAY LEFT EYE 01/30/18 09:00 02/28/18 17:59 01/30/18 09:10 Promethazine HCl/ Codeine (Phenergan with Codeine) 5 ml Q6H PRN ORAL For Cough 01/29/18 18:00 02/28/18 17:59 01/30/18 10:16 Sertraline HCl (Zoloft) 100 mg DAILY ORAL 01/30/18 09:00 03/01/18 08:59 01/30/18 09:09 Sodium Chloride 1,000 ml @ 50 mls/hr Q20H IV 01/29/18 14:08 02/28/18 14:07 01/30/18 10:16 Spironolactone (Aldactone) 12.5 mg DAILY ORAL 01/30/18 09:00 03/01/18 08:59 8/15/18 09:09 Montse Hendrix MD Jan 30, 2018 16:34
--- NOTE | 2018-01-30 16:37 | Consultation ---
History of Present Illness General Date patient seen: Jan 29, 2018 Chief Complaint: Upper Respiratory Illness Reason for Consultation: Possible PNA Present Illness HPI 67 year old with hx of extensive bronchiectasis, COPD and TB in the past presented with CC of hemoptysis and fever for a few days. Allergies: Coded Allergies: NO KNOWN ALLERGIES (Verified Allergy, Unknown, 09/04/17) Medication History Scheduled Amlodipine Besylate* (Amlodipine Besylate*), 10 MG ORAL DAILY, (Reported) Aspirin (Aspirin EC), 81 MG ORAL DAILY, (Reported) Atorvastatin Calcium* (Atorvastatin Calcium*), 20 MG ORAL DAILY, (Reported) Baclofen (Baclofen), 20 MG ORAL QHS, (Reported) Carvedilol* (Carvedilol*), 12.5 MG ORAL EVERY 12 HOURS, (Reported) Esomeprazole Magnesium (Nexium), 40 MG ORAL DAILY, (Reported) Fluticasone Propionate (Flovent Diskus), 50 MCG INH EVERY 4 HOURS, (Reported) Gabapentin* (Gabapentin*), 600 MG ORAL QHS, (Reported) Ipratropium/Albuterol Sulfate (Combivent Inhaler), 2 PUFFS INH QID, (Reported) Losartan Potassium* (Cozaar*), 50 MG ORAL DAILY, (Reported) Mometasone Furoate (Nasonex), 1 SPRAY NASAL DAILY, (Reported) Multivitamin (Multivitamins), 1 CAP ORAL DAILY, (Reported) Omeprazole (Omeprazole), 40 MG ORAL DAILY, (Reported) Prednisolone Acetate (Prednisolone Acetate), 2 DROP BOTH EYES TWICE A DAY, ( Reported) Sertraline Hcl* (Zoloft*), 100 MG ORAL DAILY, (Reported) Spironolactone (Aldactone), 12.5 MG ORAL DAILY, (Reported) Trimethoprim/Sulfamethoxazole (Bactrim 400-80 mg Tablet), 1 TAB ORAL BID, ( Reported) Scheduled PRN Acetaminophen* (Tylenol*), 650 MG PO Q4H PRN for Fever/Headache/Mild Pain, ( Reported) Acetaminophen* (Tylenol*), 650 MG PO Q4H PRN for Fever/Headache/Mild Pain, ( Reported) Calcipotriene (Calcipotriene), 60 GM TP for Itching/Pruritis, (Reported) Diphenhydramine Hcl* (Benadryl*), 25 MG ORAL Q6H PRN for Itching, (Reported) Docusate Sodium* (Colace*), 100 MG ORAL THREE TIMES A DAY PRN for Constipation, (Reported) Doxepin HCl (Doxepin HCl), 45 GM TP for Itching, (Reported) Ipratropium/Albuterol Sulfate (DuoNeb 0.5-3(2.5)mg/3ml), 3 ML HHN EVERY 4 HOURS PRN for Shortness of breath, (Reported) Mag Hydrox/Al Hydrox/Simeth (Alum-Mag Hydroxide-Simeth Liq), 30 ML PO Q6HR PRN for Abdominal cramps, (Reported) Nitroglycerin (Nitroglycerin), 0.4 MG SL for Prn Chest Pain, (Reported) Nitroglycerin (Nitroglycerin), 0.4 MG SL [id number] PRN for Prn Chest Pain, ( Reported) Polyethylene Glycol 3350* (Miralax*), 17 GM ORAL BEDTIME PRN for Constipation, ( Reported) Promethazine HCl/Codeine (Prometh-Codein 6.25-10 mg/5 ml), 5 ML PO for For Cough , (Reported) Promethazine Hcl* (Phenergan*), 25 MG ORAL THREE TIMES A DAY PRN for Nausea & Vomiting, (Reported) Temazepam (Temazepam*), 15 MG ORAL BEDTIME PRN for Insomnia, (Reported) Patient History Healthcare decision maker Resuscitation status Advanced Directive on File Past Medical/Surgical History Past Medical/Surgical History: (1) Bronchiectasis (2) Anxiety (3) COPD (chronic obstructive pulmonary disease) Physical Exam General Appearance: WD/WN Lines, tubes and drains: peripheral HEENT: normocephalic, atraumatic, mucous membranes moist Neck: non-tender, normal alignment Respiratory/Chest: chest wall non-tender, lungs clear, normal breath sounds Cardiovascular/Chest: normal peripheral pulses, normal rate Abdomen: normal bowel sounds Genitourinary/Rectal: normal genital exam, normal rectal exam Extremities: normal range of motion Skin Exam: normal pigmentation 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 Last 24 Hour Vital Signs Date Time Temp Pulse Resp B/P (MAP) Pulse Ox O2 Delivery O2 Flow Rate FiO2 01/30/18 14:28 58 18 99 Room Air 21 01/30/18 14:18 58 18 95 Room Air 01/30/18 12:00 98.0 57 20 130/61 (84) 95 98.0 01/30/18 12:00 51 01/30/18 10:29 55 18 98 Room Air 21 01/30/18 09:00 Room Air 01/30/18 09:00 70 127/57 01/30/18 09:00 127/57 01/30/18 09:00 71 127/57 01/30/18 08:00 58 18 Room Air 21 01/30/18 08:00 52 01/30/18 08:00 97.9 71 20 127/57 (80) 94 97.9 01/30/18 04:00 98.0 54 20 148/63 (91) 98 98.0 01/30/18 03:33 58 01/30/18 00:00 55 01/30/18 00:00 98.4 55 24 137/74 (95) 98 98.4 01/29/18 21:00 54 142/69 01/29/18 21:00 Room Air 01/29/18 20:00 56 01/29/18 20:00 98.2 54 24 142/69 (93) 97 98.2 01/29/18 19:30 55 18 Room Air 21 Intake and Output 01/29/18 01/30/18 19:00 07:00 Intake Total 350 ml 493 ml Balance 350 ml 493 ml Intake Oral 240 ml IV Total 110 ml 493 ml Laboratory Tests Test 01/29/18 17:55 01/30/18 06:13 Fibrinogen 367 mg/dL (200-400) Iron Level 33 ug/dL (50-175) L Total Iron Binding Capacity 244 ug/dL (250-450) L Percent Iron Saturation 14 % (15-50) L Unsaturated Iron Binding 211 ug/dL (112-346) Ferritin 156 NG/ML (8-388) CA 19-9 Antigen Pending Folate 17.4 NG/ML (8.6-58.9) White Blood Count 4.9 K/UL (4.8-10.8) Red Blood Count 3.48 M/UL (4.20-5.40) L Hemoglobin 10.9 G/DL (12.0-16.0) L Hematocrit 33.2 % (37.0-47.0) L Mean Corpuscular Volume 95 FL (80-99) Mean Corpuscular Hemoglobin 31.4 PG (27.0-31.0) H Mean Corpuscular Hemoglobin Concent 32.9 G/DL (32.0-36.0) Red Cell Distribution Width 11.5 % (11.6-14.8) L Platelet Count 170 K/UL (150-450) Mean Platelet Volume 8.4 FL (6.5-10.1) Neutrophils (%) (Auto) 55.9 % (45.0-75.0) Lymphocytes (%) (Auto) 24.7 % (20.0-45.0) Monocytes (%) (Auto) 14.1 % (1.0-10.0) H Eosinophils (%) (Auto) 4.7 % (0.0-3.0) H Basophils (%) (Auto) 0.6 % (0.0-2.0) Sodium Level 135 MMOL/L (136-145) L Potassium Level 4.3 MMOL/L (3.5-5.1) Chloride Level 101 MMOL/L (98-107) Carbon Dioxide Level 27 MMOL/L (21-32) Anion Gap 8 mmol/L (5-15) Blood Urea Nitrogen 19 mg/dL (7-18) H Creatinine 2.7 MG/DL (0.55-1.30) H Estimat Glomerular Filtration Rate 21.5 mL/min (>60) Glucose Level 111 MG/DL (74-106) H Calcium Level 10.4 MG/DL (8.5-10.1) H Phosphorus Level 3.9 MG/DL (2.5-4.9) Albumin 3.3 G/DL (3.4-5.0) L Random Vancomycin Level 14.7 ug/mL Height (Feet): 5 Height (Inches): 10.00 Weight (Pounds): 209 Medications Current Medications Medications (Trade) Dose Ordered Sig/Suraj Route PRN Reason Start Time Stop Time Status Last Admin Dose Admin Acetaminophen (Tylenol) 650 mg Q4H PRN ORAL FEVER 01/29/18 14:15 02/28/18 14:14 01/30/18 15:29 Albuterol/ Ipratropium (Albuterol/ Ipratropium) 3 ml Q4H PRN HHN Shortness of Breath 01/29/18 14:15 02/03/18 14:14 01/30/18 14:17 Amlodipine Besylate (Norvasc) 10 mg DAILY ORAL 01/30/18 09:00 03/01/18 08:59 Carvedilol (Coreg) 12.5 mg EVERY 12 HOURS ORAL 01/30/18 09:00 03/01/18 08:59 Dextrose (Dextrose 50%) STAT PRN IV Hypoglycemia 01/29/18 14:15 02/28/18 14:14 Gabapentin (Neurontin) 600 mg QHS ORAL 01/29/18 21:00 02/28/18 20:59 01/29/18 21:04 Levofloxacin (Levaquin) 750 mg Q48H ORAL 01/30/18 14:45 02/06/18 14:44 01/30/18 14:50 Lidocaine (Xylocaine 1% MPF 5ml) 10 ml Q4H PRN HHN cough 01/30/18 16:30 03/01/18 16:29 Lorazepam (Ativan 2mg/ml 1ml) 2 mg Q2H PRN IV For Anxiety 01/29/18 14:15 02/05/18 14:14 Losartan Potassium (Cozaar) 50 mg DAILY ORAL 01/30/18 09:00 03/01/18 08:59 Morphine Sulfate (Morphine Sulfate) 4 mg Q4H PRN IVP Severe Pain (Pain Scale 7-10) 01/29/18 14:15 02/05/18 14:14 Ondansetron HCl (Zofran) 4 mg Q6H PRN IVP Nausea & Vomiting 01/29/18 14:15 02/28/18 14:14 Polyethylene Glycol (Miralax) 17 gm DAILYPRN PRN ORAL Constipation 01/29/18 14:15 02/28/18 14:14 Prednisolone Acetate (Pred Forte) 2 drop TWICE A DAY LEFT EYE 01/30/18 09:00 02/28/18 17:59 01/30/18 09:10 Promethazine HCl/ Codeine (Phenergan with Codeine) 5 ml Q6H PRN ORAL For Cough 01/29/18 18:00 02/28/18 17:59 01/30/18 10:16 Sertraline HCl (Zoloft) 100 mg DAILY ORAL 8/15/18 09:00 03/01/18 08:59 01/30/18 09:09 Sodium Chloride 1,000 ml @ 50 mls/hr Q20H IV 01/29/18 14:08 02/28/18 14:07 01/30/18 10:16 Spironolactone (Aldactone) 12.5 mg DAILY ORAL 01/30/18 09:00 03/01/18 08:59 01/30/18 09:09 Assessment/Plan Problem List: (1) Hemoptysis, unspecified ICD Codes: R04.2 - Hemoptysis SNOMED: 47735609 (2) Bronchiectasis ICD Codes: J47.9 - Bronchiectasis, uncomplicated SNOMED: 29290157 (3) Anxiety ICD Codes: F41.9 - Anxiety disorder, unspecified SNOMED: 29044309 (4) COPD (chronic obstructive pulmonary disease) ICD Codes: J44.9 - Chronic obstructive pulmonary disease, unspecified SNOMED: 25178116 (5) Hx of tuberculosis ICD Codes: Z86.11 - Personal history of tuberculosis SNOMED: 354195737 Assessment/Plan check sputum respiratory treatment titrate fio2 to saturation of 92% no need for isolation Montse Hendrix MD Jan 30, 2018 16:37
--- NOTE | 2018-01-30 17:28 | General Progress Note ---
Assessment/Plan Status: stable Assessment/Plan # Anemia of chronic disease - have ordered panel to make sure b12, tsh, folate are wnl. CURRENTLY STABLE AT 10.9 --> Anemia w/u has been reviewed. Will trend CBC. 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 Right perihilar scarring. No definite acute process The time the note was entered does not necessarily correspond to the time the patient was seen. Subjective Date patient seen: Jan 30, 2018 ROS Limited/Unobtainable: Yes Hematologic/Lymphatic: Reports: anemia Allergies: Coded Allergies: NO KNOWN ALLERGIES (Verified Allergy, Unknown, 09/04/17) All Systems: reviewed and negative except above Subjective Pt awake and laert. No acute events. US renal reviewed. H/H stable. Objective Last 24 Hour Vital Signs Date Time Temp Pulse Resp B/P (MAP) Pulse Ox O2 Delivery O2 Flow Rate FiO2 01/30/18 14:28 58 18 99 Room Air 21 01/30/18 14:18 58 18 95 Room Air 01/30/18 12:00 98.0 57 20 130/61 (84) 95 98.0 01/30/18 12:00 51 01/30/18 10:29 55 18 98 Room Air 21 01/30/18 09:00 Room Air 01/30/18 09:00 70 127/57 01/30/18 09:00 127/57 01/30/18 09:00 71 127/57 01/30/18 08:00 58 18 Room Air 21 01/30/18 08:00 52 01/30/18 08:00 97.9 71 20 127/57 (80) 94 97.9 01/30/18 04:00 98.0 54 20 148/63 (91) 98 98.0 01/30/18 03:33 58 01/30/18 00:00 55 01/30/18 00:00 98.4 55 24 137/74 (95) 98 98.4 01/29/18 21:00 54 142/69 01/29/18 21:00 Room Air 01/29/18 20:00 56 01/29/18 20:00 98.2 54 24 142/69 (93) 97 98.2 01/29/18 19:30 55 18 Room Air 21 Intake and Output 01/29/18 01/30/18 19:00 07:00 Intake Total 350 ml 493 ml Balance 350 ml 493 ml Intake Oral 240 ml IV Total 110 ml 493 ml Laboratory Tests 01/29/18 17:55: Fibrinogen 367, Iron Level 33L, Total Iron Binding Capacity 244L, Percent Iron Saturation 14L, Unsaturated Iron Binding 211, Ferritin 156, CA 19-9 Antigen [ Pending], Folate 17.4 01/30/18 06:13: White Blood Count 4.9, Red Blood Count 3.48L, Hemoglobin 10.9L, Hematocrit 33.2L , Mean Corpuscular Volume 95, Mean Corpuscular Hemoglobin 31.4H, Mean Corpuscular Hemoglobin Concent 32.9, Red Cell Distribution Width 11.5L, Platelet Count 170, Mean Platelet Volume 8.4, Neutrophils (%) (Auto) 55.9, Lymphocytes (%) (Auto) 24.7, Monocytes (%) (Auto) 14.1H, Eosinophils (%) (Auto) 4.7H, Basophils (%) (Auto) 0.6, Sodium Level 135L, Potassium Level 4.3, Chloride Level 101, Carbon Dioxide Level 27, Anion Gap 8, Blood Urea Nitrogen 19H, Creatinine 2.7H, Estimat Glomerular Filtration Rate 21.5, Glucose Level 111H, Calcium Level 10.4H, Phosphorus Level 3.9, Albumin 3.3L, Random Vancomycin Level 14.7 Height (Feet): 5 Height (Inches): 10.00 Weight (Pounds): 209 General Appearance: no apparent distress EENT: PERRL/EOMI Neck: normal alignment Cardiovascular: bradycardia Respiratory/Chest: no respiratory distress Abdomen: soft Willie Avila MD Jan 30, 2018 17:28
[2018-01-30 20:00] VITALS: BP 144/64
--- NOTE | 2018-01-30 23:34 | Diagnostic Imaging Report ---
APPROVED REPORT CPT Code: 82062 Present Symptoms Comments: R/O DVT BILATERAL: Imaging reveals a patent deep venous system bilaterally. There is no evidence of thrombus within the femoral, popliteal or tibial segments. The greater saphenous veins are also within normal limits. Doppler indicates normal spontaneous flow within these segments.
[2018-01-30] MEDS ORDERED: CATAPRES-TTS 21 EACH TDERMAL (23:40)
[2018-01-30] MEDS ORDERED: VENTOLIN HFA18 GM INH (23:41)
[2018-01-30] MEDS ORDERED: QVAR7.3 GM INH (23:41)
--- NOTE | 2018-01-30 23:45 | Cardiology Progress Note ---
Assessment/Plan Assessment/Plan 1. Dyspnea, this is most likely due to bronchiectasis that occurring mainly in the left lung. 2D echo reveals normal LV systolic function with LVEF at 60%. 2. History of mitral valve prolapse. A 2D echocardiography in this facility does not verify MVP, will review the study later. 3. Hx of HTN, on amlodipine, losartan, carvedilol and aldactone. 4. CKD Subjective Subjective Sinus bradycardia at 53. Objective Last 24 Hour Vital Signs Date Time Temp Pulse Resp B/P (MAP) Pulse Ox O2 Delivery O2 Flow Rate FiO2 01/30/18 21:20 57 20 96 Room Air 01/30/18 21:00 Room Air 01/30/18 20:41 55 144/64 01/30/18 20:40 56 18 Room Air 21 01/30/18 20:00 98.0 55 20 144/64 (90) 97 98.0 01/30/18 20:00 54 01/30/18 16:00 53 01/30/18 16:00 98.2 55 20 126/64 (84) 95 98.2 01/30/18 14:28 58 18 99 Room Air 21 01/30/18 14:18 58 18 95 Room Air 01/30/18 12:00 98.0 57 20 130/61 (84) 95 98.0 01/30/18 12:00 51 01/30/18 10:29 55 18 98 Room Air 21 01/30/18 09:00 Room Air 01/30/18 09:00 70 127/57 01/30/18 09:00 127/57 01/30/18 09:00 71 127/57 01/30/18 08:00 58 18 Room Air 21 01/30/18 08:00 52 01/30/18 08:00 97.9 71 20 127/57 (80) 94 97.9 01/30/18 04:00 98.0 54 20 148/63 (91) 98 98.0 01/30/18 03:33 58 01/30/18 00:00 55 01/30/18 00:00 98.4 55 24 137/74 (95) 98 98.4 Intake and Output 01/29/18 01/30/18 19:00 07:00 Intake Total 350 ml 493 ml Balance 350 ml 493 ml Intake Oral 240 ml IV Total 110 ml 493 ml 2D Echo: EF 60%, Mild LVH, Mild MR, RVSP 40 mmHg, Grade I LVDD Laboratory Tests Test 01/30/18 06:13 01/30/18 19:52 White Blood Count 4.9 K/UL (4.8-10.8) Red Blood Count 3.48 M/UL (4.20-5.40) L Hemoglobin 10.9 G/DL (12.0-16.0) L Hematocrit 33.2 % (37.0-47.0) L Mean Corpuscular Volume 95 FL (80-99) Mean Corpuscular Hemoglobin 31.4 PG (27.0-31.0) H Mean Corpuscular Hemoglobin Concent 32.9 G/DL (32.0-36.0) Red Cell Distribution Width 11.5 % (11.6-14.8) L Platelet Count 170 K/UL (150-450) Mean Platelet Volume 8.4 FL (6.5-10.1) Neutrophils (%) (Auto) 55.9 % (45.0-75.0) Lymphocytes (%) (Auto) 24.7 % (20.0-45.0) Monocytes (%) (Auto) 14.1 % (1.0-10.0) H Eosinophils (%) (Auto) 4.7 % (0.0-3.0) H Basophils (%) (Auto) 0.6 % (0.0-2.0) Sodium Level 135 MMOL/L (136-145) L Potassium Level 4.3 MMOL/L (3.5-5.1) Chloride Level 101 MMOL/L (98-107) Carbon Dioxide Level 27 MMOL/L (21-32) Anion Gap 8 mmol/L (5-15) Blood Urea Nitrogen 19 mg/dL (7-18) H Creatinine 2.7 MG/DL (0.55-1.30) H Estimat Glomerular Filtration Rate 21.5 mL/min (>60) Glucose Level 111 MG/DL (74-106) H Calcium Level 10.4 MG/DL (8.5-10.1) H Phosphorus Level 3.9 MG/DL (2.5-4.9) Albumin 3.3 G/DL (3.4-5.0) L Random Vancomycin Level 14.7 ug/mL Urine Eosinophils None seen (NONE SEEN) Urine Random Creatinine Pending Urine Random Microalbumin Pending Urine Random Total Protein 3 MG/DL (< 11.9) Urine Random Sodium 39 mmol/L (20-110) Urine Creatinine 17.3 MG/DL (30.0-125.0) L Urine Microalbumin/Creatinine Ratio Pending Objective HEENT: Atraumatic and normocephalic. Anicteric. Pupils are equal, round, and reactive to light and accommodation. Extraocular muscles intact. NECK: JVP is less than 5 cm. No carotid bruit. Carotid upstroke is 2+ bilaterally. CARDIOVASCULAR: Normal S1 and S2. No murmurs, gallops, or rubs. PMI is at fourth intercostal space in the midclavicular line. LUNGS: Clear to auscultation bilaterally. ABDOMEN: Soft, nontender, and nondistended. No organomegaly. Positive bowel sounds. EXTREMITIES: No evidence of edema, clubbing, or cyanosis. Juan Alberto Holt MD Jan 30, 2018 23:45
[2018-01-31] VITALS: BP 155/71
--- NOTE | 2018-01-31 02:15 | Consultation ---
DATE OF CONSULTATION: 01/30/2018 NEPHROLOGY CONSULTATION CONSULTING PHYSICIAN: Selena Howard M.D. REFERRING PHYSICIAN: Cristi Sawyer D.O. REASON FOR CONSULTATION: Acute on chronic renal failure. HISTORY OF PRESENT ILLNESS: The patient is a 67-year-old female with past medical history significant for history of bronchiectasis, history of TB, history of chronic kidney disease, baseline creatinine of 1.5 to 2, history of hypertension, history of anxiety and dyslipidemia, who presented to [facility] complaining of increasing shortness of breath, cough, and hemoptysis. The patient was evaluated in the ER and was placed on respiratory isolation, found to have an elevation in creatinine. I was called for management of renal disease and electrolyte imbalance. PAST MEDICAL HISTORY: 1. History of DVT. 2. History of hypertension. 3. History of dyslipidemia. 4. History of chronic kidney disease. 5. History of COPD. 6. History of TB with full treatment. PAST SURGICAL HISTORY: 1. History of hysterectomy. 2. History of of ankle surgery. HOME MEDICATIONS: 1. Norvasc 10 mg daily. 2. Aspirin 81 mg p.o. daily. 3. Atorvastatin 20 mg p.o. daily. 4. Baclofen 20 mg daily. 5. Nexium 40 mg p.o. daily. 6. Gabapentin 600 mg daily. 7. Losartan 50 mg daily. 8. MVI one tablet p.o. daily. 9. Protonix 40 mg p.o. daily. 10. Zoloft 100 mg p.o. daily. 11. Aldactone 12.5 mg p.o. daily. 12. Bactrim double strength p.o. daily. 13. Tylenol 650 mg q.6 h. p.r.n. pain. 14. Diphenhydramine 25 mg p.o. daily. 15. Nitroglycerin p.r.n. chest pain. 16. Promethazine p.r.n. cough. FAMILY HISTORY: Noncontributory. REVIEW OF SYSTEMS: GENERAL: She complained of generalized weakness. Denied any fever, chills, or night sweats. HEAD AND NECK: Denies any dysphagia, odynophagia, blurry vision, headache, or neck stiffness. PULMONARY: Complained of shortness of breath, cough, and hemoptysis. CARDIOVASCULAR: Denies any chest or palpitation. GASTROINTESTINAL: Denies any nausea, vomiting, diarrhea, hematemesis, or hematochezia. GENITOURINARY: Denies any dysuria, frequency, or hematuria. MUSCULOSKELETAL: She complained of generalized weakness. Denies any localized weakness or numbness. PHYSICAL EXAMINATION: VITAL SIGNS: Temperature 98 degrees, blood pressure of 130/61, pulse rate of 58, respiratory rate of 18. HEAD AND NECK: No JVP. No LAD. No thyromegaly. Extraocular movement intact. Pupils are reactive to light and accommodation. LUNGS: Clear to auscultation. CARDIAC: Regular rate and rhythm. S1 and S2. No murmur. No rub. ABDOMEN: Soft, nontender, and nondistended. No organomegaly. EXTREMITIES: No edema. No clubbing. No cyanosis. LABORATORY AND DIAGNOSTIC DATA: WBC count of 4.9, hemoglobin of 10.9, hematocrit of 33, and platelet count of 170. Chemistry reveals sodium of 135, potassium 4.4, chloride 100, bicarb 28, BUN of 18, creatinine of 2.7, glucose of 109. Calcium of 10.4. Albumin of 3. UA revealed specific gravity of 1.005, leukocyte esterase 1+, wbc's 0 to 2, rbc's 0 to 2. ASSESSMENT: 1. Acute on chronic renal failure. The acute renal failure may be due to back pain versus interstitial nephritis. 2. Acute hemoptysis, rule out bronchiectasis. 3. Hypertension. 4. COPD. PLAN: 1. Obtain a random urine protein to creatinine ratio to calculate the proteinuria. 2. To check the urine sodium and creatinine to calculate fractional excretion of sodium. 3. Avoid any NSAID and nephrotoxic. 4. Replace electrolytes as needed. 5. Ultrasound of the kidney. At the end, I would like to thank, Dr. Cristi Sawyer, for allowing me to participate in the care of this patient. Selena Howard M.D. DR: Mac JOB#: [id number] CC:
[2018-01-31] MEDS: Promethazine/Codeine 5ml UD ORAL PRN ×3 (02:55→23:55)
--- NOTE | 2018-01-31 03:15 | Consultation ---
DATE OF CONSULTATION: 01/29/2018 CARDIOLOGY CONSULTATION CONSULTING PHYSICIAN: Juan Alberto Holt M.D. REFERRING PHYSICIAN: Cristi Sawyer D.O. REASON FOR CONSULTATION: Management of shortness of breath. HISTORY OF PRESENT ILLNESS: The patient is a very unfortunate 67-year-old female, who presents to the hospital with shortness of breath as well as hemoptysis. The patient has a remote history of tuberculosis as well as complicated by bronchiectasis. She recently developed shortness of breath and was treated with oral antibiotics for presumably diagnosis of pneumonia. Apparently, she was taking azithromycin. Today, she feels weak. On arrival today in the emergency department, blood pressure was 139/64 mmHg and heart rate of 59. She was admitted to telemetry under the service of Dr. Cristi Sawyer. Cardiology consultation was made to assess and evaluate shortness of breath from the cardiac standpoint. The patient currently denies any chest pain. Her cardiac history is significant for history of mitral valve prolapse. Her CAD risk factors includes hypertension. PAST MEDICAL HISTORY: Mitral valve prolapse, hypertension, bronchiectasis, remote history of tuberculosis, history of left eye blindness, and history of headaches. PAST SURGICAL HISTORY: None. ALLERGIES: No known drug allergies. MEDICATIONS: List of medications at home including acetaminophen 650 mg q.4 h. p.r.n. fever, headache, and mild pain, amlodipine 10 mg daily, aspirin 81 mg daily, atorvastatin 20 mg at bedtime, 20 mg p.o. at bedtime, calcipotriol 60 g p.r.n. itching and pruritus, carvedilol 12.5 mg twice daily, Benadryl 25 mg q.6 h. p.r.n. itching, Colace 100 mg p.o. twice a day p.r.n. constipation, doxepin 45 g PT p.r.n. itching, Nexium 40 mg p.o. daily, Flovent Diskus 50 mcg inhaler every four hours, gabapentin 600 mg at bedtime, Combivent inhaler two puffs inhaler q.i.d., DuoNeb 3 mL HHN every four hours p.r.n. shortness of breath, Cozaar 50 mg p.o. daily, magnesium hydroxide liquid 30 mL p.o. q.6 h. p.r.n. abdominal cramps, Nasonex one spray daily, multivitamin one capsule p.o. daily, nitroglycerin 0.4 mg sublingual p.r.n. chest pain every five minutes x3, omeprazole 40 mg p.o. daily, MiraLAX 17 g p.o. at bedtime p.r.n. constipation, prednisone two drops both eyes twice a day, Phenergan 25 mg three times a day, Phenergan With Codeine 6.25/10 mg per 5 mL two teaspoon p.o. p.r.n. cough, Zoloft 100 mg p.o. daily, Aldactone 12.5 mg p.o. daily, temazepam 15 mg at bedtime p.r.n. insomnia, and Bactrim 400/80 mg one tablet twice a day. FAMILY HISTORY: No premature coronary artery disease in first-degree relatives. REVIEW OF SYSTEMS: HEENT: Denies any headache, diplopia, or blurred vision. CONSTITUTIONAL: Denies any fever, chills, night sweats, or weight loss. CARDIOVASCULAR: Denies any chest pain. She complains of shortness of breath. Denies any PND, orthopnea, or syncope. PULMONARY: She has shortness of breath, cough, and hemoptysis. GASTROINTESTINAL: Denies any nausea, vomiting, diarrhea, constipation, abdominal pain, or GI bleed. GENITOURINARY: Denies any hematuria, dysuria, or incontinence. NEUROLOGIC: Denies any motor dysfunction, sensory deficit, or altered speech. PHYSICAL EXAMINATION: GENERAL: The patient is a very unfortunate 67-year-old female, in no apparent respiratory distress, chronically ill. VITAL SIGNS: Blood pressure was 139/64, pulse of 59, respirations 20, temperature 98.2 degrees Fahrenheit, and O2 saturation 98% on room air. HEENT: Atraumatic and normocephalic. Anicteric. Pupils are equal, round, and reactive to light and accommodation. Extraocular muscles intact. NECK: JVP is less than 5 cm. No carotid bruit. Carotid upstroke is 2+ bilaterally. CARDIOVASCULAR: Normal S1 and S2. No murmurs, gallops, or rubs. PMI is at fourth intercostal space in the midclavicular line. LUNGS: Clear to auscultation bilaterally. ABDOMEN: Soft, nontender, and nondistended. No organomegaly. Positive bowel sounds. EXTREMITIES: No evidence of edema, clubbing, or cyanosis. LABORATORY AND DIAGNOSTIC DATA: WBC 5.1, hemoglobin was 11.7, hematocrit 35.5, and platelet count is 175. Chemistry showed sodium was 131, potassium 4.1, chloride 93, bicarbonate 27, BUN of 18, creatinine 0.8, glucose 99, and calcium is 10.0. Magnesium 1.5. Troponin I zero. ProBNP was 399. Triglycerides was 367. A chest x-ray showed extensive chronic appearing abnormality of the left lung, unchanged from earlier studies, the right perihilar scarring unchanged, and no acute processes. ASSESSMENT AND PLAN: The patient is a very unfortunate 67-year-old female, seen in Cardiology consultation at request of Dr. Sawyer. 1. Dyspnea, this is most likely due to bronchiectasis that occurring mainly in the left lung. According to the chest x-ray, there is questionable pneumonia and the patient is taking azithromycin. We would like to obtain 2D echocardiography to assess LV systolic and diastolic function. 2. History of mitral valve prolapse. A 2D echocardiography on this condition. I would like to thank, Dr. Sawyer, for allowing me to participate in the care of this patient. Juan Alberto Holt M.D. DR: WANDA JOB#: [id number] CC:
[2018-01-31 04:00] VITALS: BP 144/66
[2018-01-31] MEDS ORDERED: QVAR7.3 GM INH (04:09)
[2018-01-31 06:26] LABS: HEMATOCRIT 35.6 % (37.0-47.0); HEMOGLOBIN 11.6 G/DL (12.0-16.0); MEAN CORPUSCULAR VOLUME 97 FL (80-99); PLATELET COUNT 183 K/UL (150-450); RED BLOOD COUNT 3.68 M/UL (4.20-5.40); RED CELL DISTRIBUTION WIDTH 11.6 % (11.6-14.8); WHITE BLOOD COUNT 4.4 K/UL (4.8-10.8)
[2018-01-31 07:20] LABS: ANION GAP 8 mmol/L (5-15); BLOOD UREA NITROGEN 18 mg/dL (7-18); CALCIUM 10.1 MG/DL (8.5-10.1); CARBON DIOXIDE 28 MMOL/L (21-32); CHLORIDE 99 MMOL/L (98-107); CREATININE 2.6 MG/DL (0.55-1.30); POTASSIUM 4.2 MMOL/L (3.5-5.1); SODIUM 135 MMOL/L (136-145)
[2018-01-31 08:19] VITALS: BP 141/74
[2018-01-31] MEDS: Sertraline 100mg tab ORAL SCH (08:23)
[2018-01-31] MEDS: Spironolactone 25mg tab ORAL SCH (08:23)
[2018-01-31] MEDS: Losartan 50mg tab ORAL SCH (08:23)
[2018-01-31] MEDS: Carvedilol 12.5mg tab ORAL SCH ×4 (08:23→21:00)
[2018-01-31] MEDS: Pred Forte 1% Opth Susp 1ml LEFT EYE SCH ×2 (08:24→18:00)
--- NOTE | 2018-01-31 08:37 | Nephrology Progress Note ---
Assessment/Plan Assessment 1. Acute on chronic renal failure. The acute renal failure may be due to back pain versus interstitial nephritis. 2. bronchiectasis. 3. Hypertension. 4. COPD. Plan plan may need to hold losartan continue iv antibiotic monitoring renal function avoid NSAID replace electrolyte Subjective Constitutional: Reports: malaise, weakness HEENT: Reports: no symptoms Genitourinary: Reports: no symptoms Neurologic/Psychiatric: Reports: no symptoms Subjective alert and awake no complaints Objective Objective Last 24 Hour Vital Signs Date Time Temp Pulse Resp B/P (MAP) Pulse Ox O2 Delivery O2 Flow Rate FiO2 01/31/18 08:23 54 141/74 01/31/18 08:23 141/74 01/31/18 08:23 54 141/74 01/31/18 08:19 97.5 54 18 141/74 (96) 95 97.5 01/31/18 04:00 97.3 58 20 144/66 (92) 94 97.3 01/31/18 04:00 55 01/31/18 00:00 62 01/31/18 00:00 97.3 64 20 155/71 (99) 93 97.3 01/30/18 21:20 57 20 96 Room Air 01/30/18 21:00 Room Air 01/30/18 20:41 55 144/64 01/30/18 20:40 56 18 Room Air 21 01/30/18 20:00 98.0 55 20 144/64 (90) 97 98.0 01/30/18 20:00 54 01/30/18 16:00 53 01/30/18 16:00 98.2 55 20 126/64 (84) 95 98.2 01/30/18 14:28 58 18 99 Room Air 21 01/30/18 14:18 58 18 95 Room Air 01/30/18 12:00 98.0 57 20 130/61 (84) 95 98.0 01/30/18 12:00 51 01/30/18 10:29 55 18 98 Room Air 21 01/30/18 09:00 Room Air 01/30/18 09:00 70 127/57 01/30/18 09:00 127/57 01/30/18 09:00 71 127/57 Intake and Output 01/30/18 01/31/18 19:00 07:00 Intake Total 400 ml 1089 ml Output Total 1000 ml Balance 400 ml 89 ml Intake Oral 480 ml IV Total 400 ml 609 ml Output Urine Total 1000 ml # Voids 3 Laboratory Tests 01/30/18 19:52: Urine Eosinophils None seen, Urine Random Creatinine [Pending], Urine Random Microalbumin [Pending], Urine Random Total Protein 3, Urine Random Sodium 39, Urine Creatinine 17.3L, Urine Microalbumin/Creatinine Ratio [Pending] 01/31/18 05:45: White Blood Count 4.4L, Red Blood Count 3.68L, Hemoglobin 11.6L, Hematocrit 35.6L, Mean Corpuscular Volume 97, Mean Corpuscular Hemoglobin 31.6H, Mean Corpuscular Hemoglobin Concent 32.6, Red Cell Distribution Width 11.6, Platelet Count 183, Mean Platelet Volume 7.6, Neutrophils (%) (Auto) , Lymphocytes (%) ( Auto) , Monocytes (%) (Auto) , Eosinophils (%) (Auto) , Basophils (%) (Auto) , Neutrophils % (Manual) [Pending], Lymphocytes % (Manual) [Pending], Platelet Estimate [Pending], Platelet Morphology [Pending], Sodium Level 135L, Potassium Level 4.2, Chloride Level 99, Carbon Dioxide Level 28, Anion Gap 8, Blood Urea Nitrogen 18, Creatinine 2.6H, Estimat Glomerular Filtration Rate 22.4, Glucose Level 101, Calcium Level 10.1 Height (Feet): 5 Height (Inches): 10.00 Weight (Pounds): 210 Objective HEAD AND NECK: No JVP. No LAD. No thyromegaly. Extraocular movement intact. Pupils are reactive to light and accommodation. LUNGS: Clear to auscultation. CARDIAC: Regular rate and rhythm. S1 and S2. No murmur. No rub. ABDOMEN: Soft, nontender, and nondistended. No organomegaly. EXTREMITIES: No edema. No clubbing. No cyanosis. Selena Howard MD Jan 31, 2018 08:37
[2018-01-31] MEDS: Albuterol/Ipratropium 3ml neb HHN PRN (11:14)
--- NOTE | 2018-01-31 11:15 | Infectious Diseases Prog Note ---
Assessment/Plan Assessment/Plan Assessment/Plan 67 yo female with PMHx of Bronchiectasiss and COPD who presented to the ED on with SOB and mild hemoptysis. # SOB More likely to be COPD exacerbation then PNA - No evidence of PNA on imaging - CXR - 01/29/18 - Extensive chronic appearing abnormality of the left lung, unchanged from earlier studies. Right perihilar scarring, unchanged No definite acute process - Sputum cultures pending # Hemoptysis Mild likley secondary to coughing and bronchiectasis - Low suspicion of active Tb give previous treatment and lack of typical TB finding on lung imaging # TB S/P Tx 20 years ago #Bronchiectasis #COPD #Hypertension #Anxiety PLAN: -Continue Levofloxacin abx d#08/22 for PNA -01/30 SP IV Vancomycin and Cefepime #2 - Sputum Cultures - Monitor Temps and CBC Thank you for consulting us for the care of this patient. We will continue to follow with you. Subjective Allergies: Coded Allergies: NO KNOWN ALLERGIES (Verified Allergy, Unknown, 09/04/17) Subjective afebrile no leukocytosis Objective Vital Signs Last 24 Hour Vital Signs Date Time Temp Pulse Resp B/P (MAP) Pulse Ox O2 Delivery O2 Flow Rate FiO2 01/31/18 09:00 Room Air 01/31/18 08:32 54 141/74 01/31/18 08:23 141/74 01/31/18 08:23 54 141/74 01/31/18 08:19 97.5 54 18 141/74 (96) 95 97.5 01/31/18 08:00 69 01/31/18 04:00 97.3 58 20 144/66 (92) 94 97.3 01/31/18 04:00 55 01/31/18 00:00 62 01/31/18 00:00 97.3 64 20 155/71 (99) 93 97.3 01/30/18 21:20 57 20 96 Room Air 01/30/18 21:00 Room Air 01/30/18 20:41 55 144/64 01/30/18 20:40 56 18 Room Air 21 01/30/18 20:00 98.0 55 20 144/64 (90) 97 98.0 01/30/18 20:00 54 01/30/18 16:00 53 8/15/18 16:00 98.2 55 20 126/64 (84) 95 98.2 01/30/18 14:28 58 18 99 Room Air 21 01/30/18 14:18 58 18 95 Room Air 01/30/18 12:00 98.0 57 20 130/61 (84) 95 98.0 01/30/18 12:00 51 Height (Feet): 5 Height (Inches): 10.00 Weight (Pounds): 210 Objective Gen: NAD, well appearing, alert HEENT: NCAT, MMM, EOMI, PERRL, No Oral lesion, no scleral icterus NECK: full range of motion, supple, no meningismus, No LAD, No JVD LUNGS: Generally no W/C, some mild crackle i the bases CARDS: RRR, S1, S2, No M/R/G ABD: Soft, NT, ND, No R/G, + BS, No HSM, No Masses : Deferred Ext: C/C/E, Pulses 2+ B/L (DP, Rad) NEURO: A/O x 4, Strength and Sensation Grossly intact PSYCH: mood/affect normal SKIN:~ warm/dry, No rashes Microbiology Date/Time Source Procedure Growth Status 01/29/18 09:11 Blood Blood Culture - Preliminary NO GROWTH AFTER 24 HOURS Resulted 01/29/18 09:00 Blood Blood Culture - Preliminary NO GROWTH AFTER 24 HOURS Resulted Laboratory Tests Test 01/30/18 19:52 01/31/18 05:45 Urine Eosinophils None seen (NONE SEEN) Urine Random Creatinine Pending Urine Random Microalbumin Pending Urine Random Total Protein 3 MG/DL (< 11.9) Urine Random Sodium 39 mmol/L (20-110) Urine Creatinine 17.3 MG/DL (30.0-125.0) L Urine Microalbumin/Creatinine Ratio Pending White Blood Count 4.4 K/UL (4.8-10.8) L Red Blood Count 3.68 M/UL (4.20-5.40) L Hemoglobin 11.6 G/DL (12.0-16.0) L Hematocrit 35.6 % (37.0-47.0) L Mean Corpuscular Volume 97 FL (80-99) Mean Corpuscular Hemoglobin 31.6 PG (27.0-31.0) H Mean Corpuscular Hemoglobin Concent 32.6 G/DL (32.0-36.0) Red Cell Distribution Width 11.6 % (11.6-14.8) Platelet Count 183 K/UL (150-450) Mean Platelet Volume 7.6 FL (6.5-10.1) Neutrophils (%) (Auto) % (45.0-75.0) Lymphocytes (%) (Auto) % (20.0-45.0) Monocytes (%) (Auto) % (1.0-10.0) Eosinophils (%) (Auto) % (0.0-3.0) Basophils (%) (Auto) % (0.0-2.0) Differential Total Cells Counted 100 Neutrophils % (Manual) 46 % (45-75) Lymphocytes % (Manual) 25 % (20-45) Monocytes % (Manual) 22 % (1-10) H Eosinophils % (Manual) 7 % (0-3) H Basophils % (Manual) 0 % (0-2) Band Neutrophils 0 % (0-8) Platelet Estimate Adequate Platelet Morphology Normal Red Blood Cell Morphology Normal Sodium Level 135 MMOL/L (136-145) L Potassium Level 4.2 MMOL/L (3.5-5.1) Chloride Level 99 MMOL/L (98-107) Carbon Dioxide Level 28 MMOL/L (21-32) Anion Gap 8 mmol/L (5-15) Blood Urea Nitrogen 18 mg/dL (7-18) Creatinine 2.6 MG/DL (0.55-1.30) H Estimat Glomerular Filtration Rate 22.4 mL/min (>60) Glucose Level 101 MG/DL (74-106) Calcium Level 10.1 MG/DL (8.5-10.1) Current Medications Medications (Trade) Dose Ordered Sig/Suraj Route PRN Reason Start Time Stop Time Status Last Admin Dose Admin Acetaminophen (Tylenol) 650 mg Q4H PRN ORAL FEVER 01/29/18 14:15 02/28/18 14:14 01/31/18 00:13 Albuterol/ Ipratropium (Albuterol/ Ipratropium) 3 ml Q4H PRN HHN Shortness of Breath 01/29/18 14:15 02/03/18 14:14 01/30/18 14:17 Amlodipine Besylate (Norvasc) 10 mg DAILY ORAL 01/30/18 09:00 03/01/18 08:59 01/31/18 08:23 Carvedilol (Coreg) 12.5 mg EVERY 12 HOURS ORAL 01/30/18 09:00 03/01/18 08:59 Dextrose (Dextrose 50%) STAT PRN IV Hypoglycemia 01/29/18 14:15 02/28/18 14:14 Gabapentin (Neurontin) 600 mg QHS ORAL 01/29/18 21:00 02/28/18 20:59 01/30/18 21:06 Levofloxacin (Levaquin) 750 mg Q48H ORAL 01/30/18 14:45 02/06/18 14:44 01/30/18 14:50 Lidocaine (Xylocaine 1% MPF 5ml) 10 ml Q4H PRN HHN cough 01/30/18 16:30 03/01/18 16:29 01/30/18 21:20 Lorazepam (Ativan 2mg/ml 1ml) 2 mg Q2H PRN IV For Anxiety 01/29/18 14:15 02/05/18 14:14 Losartan Potassium (Cozaar) 50 mg DAILY ORAL 01/30/18 09:00 03/01/18 08:59 01/31/18 08:23 Morphine Sulfate (Morphine Sulfate) 4 mg Q4H PRN IVP Severe Pain (Pain Scale 7-10) 01/29/18 14:15 02/05/18 14:14 Ondansetron HCl (Zofran) 4 mg Q6H PRN IVP Nausea & Vomiting 01/29/18 14:15 02/28/18 14:14 Polyethylene Glycol (Miralax) 17 gm DAILYPRN PRN ORAL Constipation 01/29/18 14:15 02/28/18 14:14 01/31/18 09:27 Prednisolone Acetate (Pred Forte) 2 drop TWICE A DAY LEFT EYE 01/30/18 09:00 02/28/18 17:59 01/31/18 08:24 Promethazine HCl/ Codeine (Phenergan with Codeine) 5 ml Q6H PRN ORAL For Cough 01/29/18 18:00 02/28/18 17:59 01/31/18 09:20 Sertraline HCl (Zoloft) 100 mg DAILY ORAL 01/30/18 09:00 9/14/18 08:59 01/31/18 08:23 Sodium Chloride 1,000 ml @ 50 mls/hr Q20H IV 01/29/18 14:08 02/28/18 14:07 01/31/18 05:34 Spironolactone (Aldactone) 12.5 mg DAILY ORAL 01/30/18 09:00 03/01/18 08:59 01/31/18 08:23 April Amezcua M.D. Jan 31, 2018 11:15
[2018-01-31 12:00] VITALS: BP 136/62
[2018-01-31] MEDS ORDERED: Sodium Chloride 3% 4ml Nebul Soln INH SCH (12:00)
--- NOTE | 2018-01-31 13:06 | General Progress Note ---
Assessment/Plan Status: stable Assessment/Plan # Anemia of chronic disease - have ordered panel to make sure b12, tsh, folate are wnl. CURRENTLY STABLE AT 11.6 --> Anemia w/u has been reviewed. Will trend CBC. 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 Right perihilar scarring. No definite acute process The time the note was entered does not necessarily correspond to the time the patient was seen. Subjective Date patient seen: Jan 31, 2018 Hematologic/Lymphatic: Reports: anemia Allergies: Coded Allergies: NO KNOWN ALLERGIES (Verified Allergy, Unknown, 09/04/17) Subjective Pt awake and alert. No acute events. H/H stable. Objective Last 24 Hour Vital Signs Date Time Temp Pulse Resp B/P (MAP) Pulse Ox O2 Delivery O2 Flow Rate FiO2 01/31/18 12:00 98.0 52 18 136/62 (86) 97 98.0 01/31/18 12:00 52 01/31/18 11:20 53 20 99 Room Air 21 01/31/18 11:16 51 18 96 Room Air 21 01/31/18 11:16 51 20 Room Air 21 01/31/18 09:00 52 136/62 01/31/18 09:00 Room Air 01/31/18 08:23 141/74 01/31/18 08:23 54 141/74 01/31/18 08:19 97.5 54 18 141/74 (96) 95 97.5 01/31/18 08:00 69 01/31/18 04:00 97.3 58 20 144/66 (92) 94 97.3 01/31/18 04:00 55 01/31/18 00:00 62 01/31/18 00:00 97.3 64 20 155/71 (99) 93 97.3 8/15/18 21:20 57 20 96 Room Air 01/30/18 21:00 Room Air 01/30/18 20:41 55 144/64 01/30/18 20:40 56 18 Room Air 21 01/30/18 20:00 98.0 55 20 144/64 (90) 97 98.0 01/30/18 20:00 54 01/30/18 16:00 53 01/30/18 16:00 98.2 55 20 126/64 (84) 95 98.2 01/30/18 14:28 58 18 99 Room Air 21 01/30/18 14:18 58 18 95 Room Air Intake and Output 01/30/18 01/31/18 19:00 07:00 Intake Total 400 ml 1089 ml Output Total 1000 ml Balance 400 ml 89 ml Intake Oral 480 ml IV Total 400 ml 609 ml Output Urine Total 1000 ml # Voids 3 Laboratory Tests 01/30/18 19:52: Urine Eosinophils None seen, Urine Random Creatinine [Pending], Urine Random Microalbumin [Pending], Urine Random Total Protein 3, Urine Random Sodium 39, Urine Creatinine 17.3L, Urine Microalbumin/Creatinine Ratio [Pending] 01/31/18 05:45: White Blood Count 4.4L, Red Blood Count 3.68L, Hemoglobin 11.6L, Hematocrit 35.6L, Mean Corpuscular Volume 97, Mean Corpuscular Hemoglobin 31.6H, Mean Corpuscular Hemoglobin Concent 32.6, Red Cell Distribution Width 11.6, Platelet Count 183, Mean Platelet Volume 7.6, Neutrophils (%) (Auto) , Lymphocytes (%) ( Auto) , Monocytes (%) (Auto) , Eosinophils (%) (Auto) , Basophils (%) (Auto) , Differential Total Cells Counted 100, Neutrophils % (Manual) 46, Lymphocytes % ( Manual) 25, Monocytes % (Manual) 22H, Eosinophils % (Manual) 7H, Basophils % ( Manual) 0, Band Neutrophils 0, Platelet Estimate Adequate, Platelet Morphology Normal, Red Blood Cell Morphology Normal, Sodium Level 135L, Potassium Level 4.2 , Chloride Level 99, Carbon Dioxide Level 28, Anion Gap 8, Blood Urea Nitrogen 18, Creatinine 2.6H, Estimat Glomerular Filtration Rate 22.4, Glucose Level 101 , Calcium Level 10.1 Height (Feet): 5 Height (Inches): 10.00 Weight (Pounds): 210 General Appearance: no apparent distress EENT: PERRL/EOMI Neck: normal alignment Cardiovascular: bradycardia Respiratory/Chest: no respiratory distress Abdomen: soft Willie Avila MD Jan 31, 2018 13:06
--- NOTE | 2018-01-31 13:23 | Pulmonology Progress Note ---
Assessment/Plan Problems: (1) Hemoptysis, unspecified (2) Bronchiectasis (3) Anxiety (4) COPD (chronic obstructive pulmonary disease) (5) Hx of tuberculosis Assessment/Plan check sputum iv abx titrate fio2 to sat of 92% check electrolytes Lidocain inhalation for refractory cough add albuterol PO theophyline PO swallow study because of choking during eating Subjective ROS Limited/Unobtainable: No Constitutional: Reports: no symptoms HEENT: Repors: no symptoms Respiratory: Reports: no symptoms Allergies: Coded Allergies: NO KNOWN ALLERGIES (Verified Allergy, Unknown, 09/04/17) Objective Last 24 Hour Vital Signs Date Time Temp Pulse Resp B/P (MAP) Pulse Ox O2 Delivery O2 Flow Rate FiO2 01/31/18 12:00 98.0 52 18 136/62 (86) 97 98.0 01/31/18 12:00 52 01/31/18 11:20 53 20 99 Room Air 21 01/31/18 11:16 51 18 96 Room Air 21 01/31/18 11:16 51 20 Room Air 21 01/31/18 09:00 52 136/62 01/31/18 09:00 Room Air 01/31/18 08:23 141/74 01/31/18 08:23 54 141/74 01/31/18 08:19 97.5 54 18 141/74 (96) 95 97.5 01/31/18 08:00 69 01/31/18 04:00 97.3 58 20 144/66 (92) 94 97.3 01/31/18 04:00 55 01/31/18 00:00 62 01/31/18 00:00 97.3 64 20 155/71 (99) 93 97.3 01/30/18 21:20 57 20 96 Room Air 01/30/18 21:00 Room Air 01/30/18 20:41 55 144/64 01/30/18 20:40 56 18 Room Air 21 01/30/18 20:00 98.0 55 20 144/64 (90) 97 98.0 01/30/18 20:00 54 01/30/18 16:00 53 01/30/18 16:00 98.2 55 20 126/64 (84) 95 98.2 01/30/18 14:28 58 18 99 Room Air 21 01/30/18 14:18 58 18 95 Room Air Intake and Output 01/30/18 01/31/18 19:00 07:00 Intake Total 400 ml 1089 ml Output Total 1000 ml Balance 400 ml 89 ml Intake Oral 480 ml IV Total 400 ml 609 ml Output Urine Total 1000 ml # Voids 3 General Appearance: WD/WN HEENT: normocephalic, atraumatic Respiratory/Chest: chest wall non-tender, lungs clear Breasts: no masses Cardiovascular: normal rate Abdomen: normal bowel sounds, no organomegaly Neurologic/Psychiatric: speed runner II-XII grossly normal, no motor/sensory deficits Microbiology Date/Time Source Procedure Growth Status 01/29/18 09:11 Blood Blood Culture - Preliminary NO GROWTH AFTER 24 HOURS Resulted 01/29/18 09:00 Blood Blood Culture - Preliminary NO GROWTH AFTER 24 HOURS Resulted Laboratory Tests 01/30/18 19:52: Urine Eosinophils None seen, Urine Random Creatinine [Pending], Urine Random Microalbumin [Pending], Urine Random Total Protein 3, Urine Random Sodium 39, Urine Creatinine 17.3L, Urine Microalbumin/Creatinine Ratio [Pending] 01/31/18 05:45: White Blood Count 4.4L, Red Blood Count 3.68L, Hemoglobin 11.6L, Hematocrit 35.6L, Mean Corpuscular Volume 97, Mean Corpuscular Hemoglobin 31.6H, Mean Corpuscular Hemoglobin Concent 32.6, Red Cell Distribution Width 11.6, Platelet Count 183, Mean Platelet Volume 7.6, Neutrophils (%) (Auto) , Lymphocytes (%) ( Auto) , Monocytes (%) (Auto) , Eosinophils (%) (Auto) , Basophils (%) (Auto) , Differential Total Cells Counted 100, Neutrophils % (Manual) 46, Lymphocytes % ( Manual) 25, Monocytes % (Manual) 22H, Eosinophils % (Manual) 7H, Basophils % ( Manual) 0, Band Neutrophils 0, Platelet Estimate Adequate, Platelet Morphology Normal, Red Blood Cell Morphology Normal, Sodium Level 135L, Potassium Level 4.2 , Chloride Level 99, Carbon Dioxide Level 28, Anion Gap 8, Blood Urea Nitrogen 18, Creatinine 2.6H, Estimat Glomerular Filtration Rate 22.4, Glucose Level 101 , Calcium Level 10.1 Current Medications Medications (Trade) Dose Ordered Sig/Suraj Route PRN Reason Start Time Stop Time Status Last Admin Dose Admin Acetaminophen (Tylenol) 650 mg Q4H PRN ORAL FEVER 01/29/18 14:15 02/28/18 14:14 01/31/18 00:13 Albuterol/ Ipratropium (Albuterol/ Ipratropium) 3 ml Q4H PRN HHN Shortness of Breath 01/29/18 14:15 02/03/18 14:14 01/31/18 11:14 Amlodipine Besylate (Norvasc) 10 mg DAILY ORAL 01/30/18 09:00 03/01/18 08:59 01/31/18 08:23 Carvedilol (Coreg) 12.5 mg EVERY 12 HOURS ORAL 01/30/18 09:00 03/01/18 08:59 Dextrose (Dextrose 50%) STAT PRN IV Hypoglycemia 01/29/18 14:15 02/28/18 14:14 Gabapentin (Neurontin) 600 mg QHS ORAL 01/29/18 21:00 02/28/18 20:59 01/30/18 21:06 Levofloxacin (Levaquin) 750 mg Q48H ORAL 01/30/18 14:45 02/06/18 14:44 01/30/18 14:50 Lidocaine (Xylocaine 1% MPF 5ml) 10 ml Q4H PRN HHN cough 01/30/18 16:30 03/01/18 16:29 01/30/18 21:20 Lorazepam (Ativan 2mg/ml 1ml) 2 mg Q2H PRN IV For Anxiety 01/29/18 14:15 02/05/18 14:14 Losartan Potassium (Cozaar) 50 mg DAILY ORAL 01/30/18 09:00 03/01/18 08:59 01/31/18 08:23 Morphine Sulfate (Morphine Sulfate) 4 mg Q4H PRN IVP Severe Pain (Pain Scale 7-10) 01/29/18 14:15 02/05/18 14:14 Ondansetron HCl (Zofran) 4 mg Q6H PRN IVP Nausea & Vomiting 01/29/18 14:15 02/28/18 14:14 Polyethylene Glycol (Miralax) 17 gm DAILYPRN PRN ORAL Constipation 01/29/18 14:15 02/28/18 14:14 01/31/18 09:27 Prednisolone Acetate (Pred Forte) 2 drop TWICE A DAY LEFT EYE 8/15/18 09:00 02/28/18 17:59 01/31/18 08:24 Promethazine HCl/ Codeine (Phenergan with Codeine) 5 ml Q6H PRN ORAL For Cough 01/29/18 18:00 02/28/18 17:59 01/31/18 09:20 Sertraline HCl (Zoloft) 100 mg DAILY ORAL 01/30/18 09:00 03/01/18 08:59 01/31/18 08:23 Sodium Chloride 1,000 ml @ 50 mls/hr Q20H IV 01/29/18 14:08 02/28/18 14:07 01/31/18 05:34 Spironolactone (Aldactone) 12.5 mg DAILY ORAL 01/30/18 09:00 03/01/18 08:59 01/31/18 08:23 Montse Hendrix MD Jan 31, 2018 13:22
[2018-01-31] MEDS ORDERED: Miralax 17gm pkt ORAL PRN (15:26)
--- NOTE | 2018-01-31 15:43 | General Progress Note ---
Assessment/Plan Problem List: (1) COPD (chronic obstructive pulmonary disease) ICD Codes: J44.9 - Chronic obstructive pulmonary disease, unspecified SNOMED: 49608260 (2) UTI (urinary tract infection) ICD Codes: N39.0 - Urinary tract infection, site not specified SNOMED: 58953040 (3) Anxiety ICD Codes: F41.9 - Anxiety disorder, unspecified SNOMED: 48042635 (4) Anemia ICD Codes: D64.9 - Anemia, unspecified SNOMED: 080714994 (5) Renal insufficiency ICD Codes: N28.9 - Disorder of kidney and ureter, unspecified SNOMED: 897465498, 846838255 (6) SOB (shortness of breath) ICD Codes: R06.02 - Shortness of breath SNOMED: 549130586 (7) Weak ICD Codes: R53.1 - Weakness SNOMED: 55922502 (8) Hemoptysis, unspecified ICD Codes: R04.2 - Hemoptysis SNOMED: 62347882 (9) Hx of tuberculosis ICD Codes: Z86.11 - Personal history of tuberculosis SNOMED: 469483594 (10) Bronchiectasis ICD Codes: J47.9 - Bronchiectasis, uncomplicated SNOMED: 36999782 Status: unchanged Assessment/Plan ot pt diet o2 pulm tx abx cbc bmp am Subjective Constitutional: Reports: weakness Respiratory: Reports: cough, shortness of breath Allergies: Coded Allergies: NO KNOWN ALLERGIES (Verified Allergy, Unknown, 09/04/17) All Systems: reviewed and negative except above Subjective sl anxious Objective Last 24 Hour Vital Signs Date Time Temp Pulse Resp B/P (MAP) Pulse Ox O2 Delivery O2 Flow Rate FiO2 01/31/18 12:00 98.0 52 18 136/62 (86) 97 98.0 01/31/18 12:00 52 01/31/18 11:20 53 20 99 Room Air 21 01/31/18 11:16 51 18 96 Room Air 21 01/31/18 11:16 51 20 Room Air 21 01/31/18 09:00 52 136/62 01/31/18 09:00 Room Air 01/31/18 08:23 141/74 01/31/18 08:23 54 141/74 01/31/18 08:19 97.5 54 18 141/74 (96) 95 97.5 01/31/18 08:00 69 01/31/18 04:00 97.3 58 20 144/66 (92) 94 97.3 01/31/18 04:00 55 01/31/18 00:00 62 01/31/18 00:00 97.3 64 20 155/71 (99) 93 97.3 01/30/18 21:20 57 20 96 Room Air 01/30/18 21:00 Room Air 01/30/18 20:41 55 144/64 01/30/18 20:40 56 18 Room Air 21 01/30/18 20:00 98.0 55 20 144/64 (90) 97 98.0 01/30/18 20:00 54 01/30/18 16:00 53 01/30/18 16:00 98.2 55 20 126/64 (84) 95 98.2 Intake and Output 01/30/18 01/31/18 19:00 07:00 Intake Total 400 ml 1089 ml Output Total 1000 ml Balance 400 ml 89 ml Intake Oral 480 ml IV Total 400 ml 609 ml Output Urine Total 1000 ml # Voids 3 Laboratory Tests 01/30/18 19:52: Urine Eosinophils None seen, Urine Random Creatinine [Pending], Urine Random Microalbumin [Pending], Urine Random Total Protein 3, Urine Random Sodium 39, Urine Creatinine 17.3L, Urine Microalbumin/Creatinine Ratio [Pending] 01/31/18 05:45: White Blood Count 4.4L, Red Blood Count 3.68L, Hemoglobin 11.6L, Hematocrit 35.6L, Mean Corpuscular Volume 97, Mean Corpuscular Hemoglobin 31.6H, Mean Corpuscular Hemoglobin Concent 32.6, Red Cell Distribution Width 11.6, Platelet Count 183, Mean Platelet Volume 7.6, Neutrophils (%) (Auto) , Lymphocytes (%) ( Auto) , Monocytes (%) (Auto) , Eosinophils (%) (Auto) , Basophils (%) (Auto) , Differential Total Cells Counted 100, Neutrophils % (Manual) 46, Lymphocytes % ( Manual) 25, Monocytes % (Manual) 22H, Eosinophils % (Manual) 7H, Basophils % ( Manual) 0, Band Neutrophils 0, Platelet Estimate Adequate, Platelet Morphology Normal, Red Blood Cell Morphology Normal, Sodium Level 135L, Potassium Level 4.2 , Chloride Level 99, Carbon Dioxide Level 28, Anion Gap 8, Blood Urea Nitrogen 18, Creatinine 2.6H, Estimat Glomerular Filtration Rate 22.4, Glucose Level 101 , Calcium Level 10.1 Height (Feet): 5 Height (Inches): 10.00 Weight (Pounds): 210 General Appearance: lethargic EENT: normal ENT inspection Neck: normal alignment Cardiovascular: normal peripheral pulses, normal rate, regular rhythm Respiratory/Chest: chest wall non-tender, decreased breath sounds Abdomen: normal bowel sounds, non tender, soft Extremities: normal inspection Edema: no edema noted Arm (L), no edema noted Arm (R), no edema noted Leg (L), no edema noted Leg (R), no edema noted Pedal (L), no edema noted Pedal (R), no edema noted Generalized Neurologic: responsive, motor weakness Skin: normal pigmentation, warm/dry Cristi Sawyer Jan 31, 2018 15:43
[2018-01-31 16:00] VITALS: BP 138/59
[2018-01-31] MEDS ORDERED: LORazepam Inj 2mg/ml 1ml IV PRN (16:15)
[2018-01-31] MEDS ORDERED: Lidocaine 1% MPF 10mg/ml 5ml HHN PRN (16:30)
[2018-01-31] MEDS ORDERED: Theophylline ER 100mg ORAL SCH (17:00)
[2018-01-31] MEDS: Theophylline ER 100mg ORAL SCH (17:32)
[2018-01-31] MEDS ORDERED: Sucralfate 1gm tab ORAL SCH (18:00)
[2018-01-31] MEDS ORDERED: Albuterol 2mg Tab ORAL SCH (18:00)
[2018-01-31] MEDS: Albuterol 2mg Tab ORAL SCH ×2 (18:52→21:01)
[2018-01-31] MEDS: Sucralfate 1gm tab ORAL SCH ×2 (18:52→21:02)
--- NOTE | 2018-01-31 19:51 | Consultation ---
History of Present Illness General Date patient seen: Jan 31, 2018 Chief Complaint: Upper Respiratory Illness Reason for Consultation: Possible PNA Present Illness HPI 67-year-old female, who lives at home, presents with two-day increased shortness of breath, slight hemoptysis, diagnosed with the above plus bronchiectasis, anxiety, admitted to telemetry for further care. the pt has depressive and anxiety sxs Allergies: Coded Allergies: NO KNOWN ALLERGIES (Verified Allergy, Unknown, 09/04/17) Medication History Scheduled Albuterol Sulfate (Ventolin Hfa), 1 PUFF INH EVERY 6 HOURS, (Reported) Amlodipine Besylate* (Amlodipine Besylate*), 10 MG ORAL DAILY, (Reported) Atorvastatin Calcium* (Atorvastatin Calcium*), 20 MG ORAL DAILY, (Reported) Baclofen (Baclofen), 20 MG ORAL TID, (Reported) Beclomethasone Dipropionate 40MCG Oral Inh (Qvar 40*), 1 PUFF INH TWICE A DAY, ( Reported) Carvedilol* (Carvedilol*), 12.5 MG ORAL EVERY 12 HOURS, (Reported) Lnrlpzjtn-Sjb-7* (Wpteobnb-Dhk-2*), 1 PATCH TDERMAL QWEEK, (Reported) Gabapentin* (Gabapentin*), 600 MG ORAL QHS, (Reported) Losartan Potassium* (Cozaar*), 50 MG ORAL DAILY, (Reported) Mometasone Furoate (Nasonex), 1 SPRAY NASAL DAILY, (Reported) Omeprazole (Omeprazole), 40 MG ORAL DAILY, (Reported) Prednisolone Acetate (Prednisolone Acetate), 2 DROP BOTH EYES TWICE A DAY, ( Reported) Sertraline Hcl* (Zoloft*), 100 MG ORAL DAILY, (Reported) Spironolactone (Aldactone), 12.5 MG ORAL DAILY, (Reported) Scheduled PRN Docusate Sodium* (Colace*), 100 MG ORAL DAILY PRN for Constipation, (Reported) Discontinued Medications Acetaminophen* (Tylenol*), 650 MG PO Q4H PRN for Fever/Headache/Mild Pain, ( Reported) Discontinued Reason: Pt had allergic rxn Aspirin (Aspirin EC), 81 MG ORAL DAILY, (Reported) Discontinued Reason: Pt stopped taking med Calcipotriene (Calcipotriene), 60 GM TP for Itching/Pruritis, (Reported) Discontinued Reason: Pt stopped taking med Diphenhydramine Hcl* (Benadryl*), 25 MG ORAL Q6H PRN for Itching, (Reported) Discontinued Reason: Pt stopped taking med Doxepin HCl (Doxepin HCl), 45 GM TP for Itching, (Reported) Discontinued Reason: Pt stopped taking med Esomeprazole Magnesium (Nexium), 40 MG ORAL DAILY, (Reported) Discontinued Reason: Pt stopped taking med Fluticasone Propionate (Flovent Diskus), 50 MCG INH EVERY 4 HOURS, (Reported) Discontinued Reason: Pt stopped taking med Ipratropium/Albuterol Sulfate (Combivent Inhaler), 2 PUFFS INH QID, (Reported) Discontinued Reason: Pt stopped taking med Ipratropium/Albuterol Sulfate (DuoNeb 0.5-3(2.5)mg/3ml), 3 ML HHN EVERY 4 HOURS PRN for Shortness of breath, (Reported) Discontinued Reason: Pt stopped taking med Mag Hydrox/Al Hydrox/Simeth (Alum-Mag Hydroxide-Simeth Liq), 30 ML PO Q6HR PRN for Abdominal cramps, (Reported) Discontinued Reason: Pt stopped taking med Multivitamin (Multivitamins), 1 CAP ORAL DAILY, (Reported) Discontinued Reason: Pt stopped taking med Nitroglycerin (Nitroglycerin), 0.4 MG SL for Prn Chest Pain, (Reported) Discontinued Reason: Pt stopped taking med Nitroglycerin (Nitroglycerin), 0.4 MG SL [id number] PRN for Prn Chest Pain, ( Reported) Discontinued Reason: Pt stopped taking med Polyethylene Glycol 3350* (Miralax*), 17 GM ORAL BEDTIME PRN for Constipation, ( Reported) Discontinued Reason: Pt stopped taking med Promethazine HCl/Codeine (Prometh-Codein 6.25-10 mg/5 ml), 5 ML PO for For Cough , (Reported) Discontinued Reason: Pt stopped taking med Promethazine Hcl* (Phenergan*), 25 MG ORAL THREE TIMES A DAY PRN for Nausea & Vomiting, (Reported) Discontinued Reason: Pt stopped taking med Temazepam (Temazepam*), 15 MG ORAL BEDTIME PRN for Insomnia, (Reported) Discontinued Reason: Pt stopped taking med Trimethoprim/Sulfamethoxazole (Bactrim 400-80 mg Tablet), 1 TAB ORAL BID, ( Reported) Discontinued Reason: Pt stopped taking med Patient History History Provided By: Patient Healthcare decision maker Resuscitation status Advanced Directive on File Past Medical/Surgical History Past Medical/Surgical History: (1) Alkaline phosphatase elevation (2) 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) (3) Abdominal pain (4) Intractable nausea and vomiting (5) Hemoptysis, unspecified (6) Hx of tuberculosis (7) COPD (chronic obstructive pulmonary disease) (8) Anemia (9) Anxiety (10) SOB (shortness of breath) (11) Renal insufficiency (12) Weak (13) UTI (urinary tract infection) (14) Bronchiectasis Review of Systems Psychiatric: Reports: prior hx, anxiety, depressed feelings, emotional problems Physical Exam General Appearance: no apparent distress, alert Neurologic: oriented x 3, responsive, depressed affect Last 24 Hour Vital Signs Date Time Temp Pulse Resp B/P (MAP) Pulse Ox O2 Delivery O2 Flow Rate FiO2 01/31/18 16:00 98.1 58 20 138/59 (85) 96 98.1 01/31/18 12:00 98.0 52 18 136/62 (86) 97 98.0 01/31/18 12:00 52 01/31/18 11:20 53 20 99 Room Air 21 01/31/18 11:16 51 18 96 Room Air 21 01/31/18 11:16 51 20 Room Air 21 01/31/18 09:00 52 136/62 01/31/18 09:00 Room Air 01/31/18 08:23 141/74 01/31/18 08:23 54 141/74 01/31/18 08:19 97.5 54 18 141/74 (96) 95 97.5 01/31/18 08:00 69 01/31/18 04:00 97.3 58 20 144/66 (92) 94 97.3 01/31/18 04:00 55 01/31/18 00:00 62 01/31/18 00:00 97.3 64 20 155/71 (99) 93 97.3 01/30/18 21:20 57 20 96 Room Air 01/30/18 21:00 Room Air 01/30/18 20:41 55 144/64 01/30/18 20:40 56 18 Room Air 21 01/30/18 20:00 98.0 55 20 144/64 (90) 97 98.0 01/30/18 20:00 54 Intake and Output 01/30/18 01/31/18 19:00 07:00 Intake Total 400 ml 1089 ml Output Total 1000 ml Balance 400 ml 89 ml Intake Oral 480 ml IV Total 400 ml 609 ml Output Urine Total 1000 ml # Voids 3 Laboratory Tests Test 01/30/18 19:52 01/31/18 05:45 Urine Eosinophils None seen (NONE SEEN) Urine Random Creatinine Pending Urine Random Microalbumin Pending Urine Random Total Protein 3 MG/DL (< 11.9) Urine Random Sodium 39 mmol/L (20-110) Urine Creatinine 17.3 MG/DL (30.0-125.0) L Urine Microalbumin/Creatinine Ratio Pending White Blood Count 4.4 K/UL (4.8-10.8) L Red Blood Count 3.68 M/UL (4.20-5.40) L Hemoglobin 11.6 G/DL (12.0-16.0) L Hematocrit 35.6 % (37.0-47.0) L Mean Corpuscular Volume 97 FL (80-99) Mean Corpuscular Hemoglobin 31.6 PG (27.0-31.0) H Mean Corpuscular Hemoglobin Concent 32.6 G/DL (32.0-36.0) Red Cell Distribution Width 11.6 % (11.6-14.8) Platelet Count 183 K/UL (150-450) Mean Platelet Volume 7.6 FL (6.5-10.1) Neutrophils (%) (Auto) % (45.0-75.0) Lymphocytes (%) (Auto) % (20.0-45.0) Monocytes (%) (Auto) % (1.0-10.0) Eosinophils (%) (Auto) % (0.0-3.0) Basophils (%) (Auto) % (0.0-2.0) Differential Total Cells Counted 100 Neutrophils % (Manual) 46 % (45-75) Lymphocytes % (Manual) 25 % (20-45) Monocytes % (Manual) 22 % (1-10) H Eosinophils % (Manual) 7 % (0-3) H Basophils % (Manual) 0 % (0-2) Band Neutrophils 0 % (0-8) Platelet Estimate Adequate Platelet Morphology Normal Red Blood Cell Morphology Normal Sodium Level 135 MMOL/L (136-145) L Potassium Level 4.2 MMOL/L (3.5-5.1) Chloride Level 99 MMOL/L (98-107) Carbon Dioxide Level 28 MMOL/L (21-32) Anion Gap 8 mmol/L (5-15) Blood Urea Nitrogen 18 mg/dL (7-18) Creatinine 2.6 MG/DL (0.55-1.30) H Estimat Glomerular Filtration Rate 22.4 mL/min (>60) Glucose Level 101 MG/DL (74-106) Calcium Level 10.1 MG/DL (8.5-10.1) Height (Feet): 5 Height (Inches): 10.00 Weight (Pounds): 210 Medications Current Medications Medications (Trade) Dose Ordered Sig/Suraj Route PRN Reason Start Time Stop Time Status Last Admin Dose Admin Acetaminophen (Tylenol) 650 mg Q4H PRN ORAL FEVER 01/31/18 15:24 02/28/18 15:23 Albuterol Sulfate (Proventil) 2 mg FOUR TIMES A DAY ORAL 01/31/18 18:00 03/02/18 17:59 01/31/18 18:52 Albuterol/ Ipratropium (Albuterol/ Ipratropium) 3 ml Q4H PRN HHN Shortness of Breath 01/31/18 18:15 02/03/18 14:14 Amlodipine Besylate (Norvasc) 10 mg DAILY ORAL 02/01/18 09:00 03/01/18 08:59 Carvedilol (Coreg) 12.5 mg EVERY 12 HOURS ORAL 01/31/18 21:00 03/01/18 08:59 Dextrose (Dextrose 50%) STAT PRN IV Hypoglycemia 02/01/18 14:15 02/28/18 14:14 Gabapentin (Neurontin) 600 mg QHS ORAL 01/31/18 21:00 02/28/18 20:59 Levofloxacin (Levaquin) 750 mg Q48H ORAL 02/01/18 14:45 02/06/18 14:44 Lidocaine (Xylocaine 1% MPF 5ml) 10 ml Q4H PRN HHN cough 01/31/18 16:30 03/01/18 16:29 Lorazepam (Ativan 2mg/ml 1ml) 2 mg Q2H PRN IV For Anxiety 01/31/18 16:15 02/05/18 14:14 Losartan Potassium (Cozaar) 50 mg DAILY ORAL 02/01/18 09:00 03/01/18 08:59 Morphine Sulfate (Morphine Sulfate) 4 mg Q4H PRN IVP Severe Pain (Pain Scale 7-10) 01/31/18 18:15 02/05/18 14:14 Ondansetron HCl (Zofran) 4 mg Q6H PRN IVP Nausea & Vomiting 01/31/18 15:26 02/28/18 15:25 Pantoprazole (Protonix) 40 mg EVERY 12 HOURS ORAL 01/31/18 21:00 03/02/18 20:59 Polyethylene Glycol (Miralax) 17 gm DAILYPRN PRN ORAL Constipation 01/31/18 15:26 03/02/18 15:25 Prednisolone Acetate (Pred Forte) 2 drop TWICE A DAY LEFT EYE 01/31/18 18:00 02/28/18 17:59 01/31/18 18:00 Promethazine HCl/ Codeine (Phenergan with Codeine) 5 ml Q6H PRN ORAL For Cough 01/31/18 15:26 02/28/18 15:25 Sertraline HCl (Zoloft) 100 mg DAILY ORAL 02/01/18 09:00 03/01/18 08:59 Spironolactone (Aldactone) 12.5 mg DAILY ORAL 02/01/18 09:00 03/01/18 08:59 Sucralfate (Carafate) 1 gm FOUR TIMES A DAY ORAL 01/31/18 18:00 03/02/18 17:59 01/31/18 18:52 Theophylline (Gunnar-Dur) 100 mg Q12H ORAL 01/31/18 17:00 03/02/18 16:59 01/31/18 17:32 Assessment/Plan Assessment/Plan mdd anxiety zoloft 100mg qam provided hipolito/Raine Larson MD Jan 31, 2018 19:51
[2018-01-31 20:00] VITALS: BP 138/72
[2018-01-31] MEDS: Morphine Sulfate 4mg/ml Inj (IV USE ONLY) IVP PRN (20:52)
--- NOTE | 2018-01-31 23:57 | Cardiology Progress Note ---
Assessment/Plan Assessment/Plan 1. Dyspnea, due to bronchiectasis due to prior TB, 2D echo reveals normal LV systolic function with LVEF at 60%. 2. Hypertensive heart disease with mild MR. 3. Hx of HTN, on amlodipine, losartan, carvedilol and aldactone. 4. CKD Subjective Subjective Transferred to the med-surg unit. Objective Last 24 Hour Vital Signs Date Time Temp Pulse Resp B/P (MAP) Pulse Ox O2 Delivery O2 Flow Rate FiO2 01/31/18 21:22 98.1 01/31/18 21:00 58 138/72 01/31/18 20:52 98.1 01/31/18 20:33 55 20 Room Air 21 01/31/18 20:00 98.2 58 19 138/72 (94) 96 98.2 01/31/18 16:00 98.1 58 20 138/59 (85) 96 98.1 01/31/18 12:00 98.0 52 18 136/62 (86) 97 98.0 01/31/18 12:00 52 01/31/18 11:20 53 20 99 Room Air 21 01/31/18 11:16 51 18 96 Room Air 21 01/31/18 11:16 51 20 Room Air 21 01/31/18 09:00 52 136/62 01/31/18 09:00 Room Air 01/31/18 08:23 141/74 01/31/18 08:23 54 141/74 01/31/18 08:19 97.5 54 18 141/74 (96) 95 97.5 01/31/18 08:00 69 01/31/18 04:00 97.3 58 20 144/66 (92) 94 97.3 01/31/18 04:00 55 01/31/18 00:00 62 01/31/18 00:00 97.3 64 20 155/71 (99) 93 97.3 Intake and Output 01/30/18 01/31/18 19:00 07:00 Intake Total 400 ml 1089 ml Output Total 1000 ml Balance 400 ml 89 ml Intake Oral 480 ml IV Total 400 ml 609 ml Output Urine Total 1000 ml # Voids 3 2D Echo: EF 60%, Mild LVH, Mild MR, RVSP 40 mmHg, Grade I LVDD Laboratory Tests Test 01/31/18 05:45 White Blood Count 4.4 K/UL (4.8-10.8) L Red Blood Count 3.68 M/UL (4.20-5.40) L Hemoglobin 11.6 G/DL (12.0-16.0) L Hematocrit 35.6 % (37.0-47.0) L Mean Corpuscular Volume 97 FL (80-99) Mean Corpuscular Hemoglobin 31.6 PG (27.0-31.0) H Mean Corpuscular Hemoglobin Concent 32.6 G/DL (32.0-36.0) Red Cell Distribution Width 11.6 % (11.6-14.8) Platelet Count 183 K/UL (150-450) Mean Platelet Volume 7.6 FL (6.5-10.1) Neutrophils (%) (Auto) % (45.0-75.0) Lymphocytes (%) (Auto) % (20.0-45.0) Monocytes (%) (Auto) % (1.0-10.0) Eosinophils (%) (Auto) % (0.0-3.0) Basophils (%) (Auto) % (0.0-2.0) Differential Total Cells Counted 100 Neutrophils % (Manual) 46 % (45-75) Lymphocytes % (Manual) 25 % (20-45) Monocytes % (Manual) 22 % (1-10) H Eosinophils % (Manual) 7 % (0-3) H Basophils % (Manual) 0 % (0-2) Band Neutrophils 0 % (0-8) Platelet Estimate Adequate Platelet Morphology Normal Red Blood Cell Morphology Normal Sodium Level 135 MMOL/L (136-145) L Potassium Level 4.2 MMOL/L (3.5-5.1) Chloride Level 99 MMOL/L (98-107) Carbon Dioxide Level 28 MMOL/L (21-32) Anion Gap 8 mmol/L (5-15) Blood Urea Nitrogen 18 mg/dL (7-18) Creatinine 2.6 MG/DL (0.55-1.30) H Estimat Glomerular Filtration Rate 22.4 mL/min (>60) Glucose Level 101 MG/DL (74-106) Calcium Level 10.1 MG/DL (8.5-10.1) Microbiology Date/Time Source Procedure Growth Status 01/29/18 09:11 Blood Blood Culture - Preliminary NO GROWTH AFTER 24 HOURS Resulted 01/29/18 09:00 Blood Blood Culture - Preliminary NO GROWTH AFTER 24 HOURS Resulted Objective HEENT: Atraumatic and normocephalic. Anicteric. Pupils are equal, round, and reactive to light and accommodation. Extraocular muscles intact. NECK: JVP is less than 5 cm. No carotid bruit. Carotid upstroke is 2+ bilaterally. CARDIOVASCULAR: Normal S1 and S2. No murmurs, gallops, or rubs. PMI is at fourth intercostal space in the midclavicular line. LUNGS: Clear to auscultation bilaterally. ABDOMEN: Soft, nontender, and nondistended. No organomegaly. Positive bowel sounds. EXTREMITIES: No evidence of edema, clubbing, or cyanosis. Juan Alberto Holt MD Jan 31, 2018 23:57
[2018-02-01] VITALS: BP 148/69
[2018-02-01 04:00] VITALS: BP 129/61
[2018-02-01] MEDS: Theophylline ER 100mg ORAL SCH ×2 (05:16→18:25)
[2018-02-01] MEDS: Morphine Sulfate 4mg/ml Inj (IV USE ONLY) IVP PRN ×3 (06:31→22:27)
[2018-02-01 07:02] LABS: BASOPHILS % (AUTO) 0.5 % (0.0-2.0); EOSINOPHILS % (AUTO) 10.8 % (0.0-3.0); HEMATOCRIT 34.7 % (37.0-47.0); HEMOGLOBIN 11.5 G/DL (12.0-16.0); MEAN CORPUSCULAR VOLUME 96 FL (80-99); NEUTROPHILS % (AUTO) 48.7 % (45.0-75.0); PLATELET COUNT 189 K/UL (150-450); RED BLOOD COUNT 3.63 M/UL (4.20-5.40); RED CELL DISTRIBUTION WIDTH 11.4 % (11.6-14.8); WHITE BLOOD COUNT 5.3 K/UL (4.8-10.8)
[2018-02-01 07:27] LABS: ANION GAP 8 mmol/L (5-15); BLOOD UREA NITROGEN 17 mg/dL (7-18); CALCIUM 10.6 MG/DL (8.5-10.1); CARBON DIOXIDE 28 MMOL/L (21-32); CHLORIDE 97 MMOL/L (98-107); CREATININE 2.6 MG/DL (0.55-1.30); POTASSIUM 4.1 MMOL/L (3.5-5.1); SODIUM 133 MMOL/L (136-145)
[2018-02-01 08:00] VITALS: BP 132/65
--- NOTE | 2018-02-01 08:02 | General Progress Note ---
Assessment/Plan Problem List: (1) COPD (chronic obstructive pulmonary disease) ICD Codes: J44.9 - Chronic obstructive pulmonary disease, unspecified SNOMED: 39640642 (2) UTI (urinary tract infection) ICD Codes: N39.0 - Urinary tract infection, site not specified SNOMED: 41916027 (3) Anxiety ICD Codes: F41.9 - Anxiety disorder, unspecified SNOMED: 33562511 (4) Anemia ICD Codes: D64.9 - Anemia, unspecified SNOMED: 329295745 (5) Renal insufficiency ICD Codes: N28.9 - Disorder of kidney and ureter, unspecified SNOMED: 613349605, 430722640 (6) SOB (shortness of breath) ICD Codes: R06.02 - Shortness of breath SNOMED: 494981616 (7) Weak ICD Codes: R53.1 - Weakness SNOMED: 43474317 (8) Hemoptysis, unspecified ICD Codes: R04.2 - Hemoptysis SNOMED: 01524757 (9) Hx of tuberculosis ICD Codes: Z86.11 - Personal history of tuberculosis SNOMED: 238127565 (10) Bronchiectasis ICD Codes: J47.9 - Bronchiectasis, uncomplicated SNOMED: 91454957 Status: doing well, stable Assessment/Plan ot pt diet o2 pulm tx abx cbc bmp am dc plan w hh Subjective Constitutional: Reports: weakness Respiratory: Reports: cough, shortness of breath Allergies: Coded Allergies: NO KNOWN ALLERGIES (Verified Allergy, Unknown, 09/04/17) All Systems: reviewed and negative except above Subjective sl anxious Objective Last 24 Hour Vital Signs Date Time Temp Pulse Resp B/P (MAP) Pulse Ox O2 Delivery O2 Flow Rate FiO2 02/01/18 07:23 59 18 Room Air 21 02/01/18 04:00 98.2 58 18 129/61 (83) 98 98.2 02/01/18 00:00 98.1 57 19 148/69 (95) 98.1 01/31/18 21:22 98.1 01/31/18 21:00 58 138/72 01/31/18 20:52 98.1 01/31/18 20:33 55 20 Room Air 21 01/31/18 20:00 98.2 58 19 138/72 (94) 96 98.2 01/31/18 16:00 98.1 58 20 138/59 (85) 96 98.1 01/31/18 12:00 98.0 52 18 136/62 (86) 97 98.0 01/31/18 12:00 52 01/31/18 11:20 53 20 99 Room Air 21 01/31/18 11:16 51 18 96 Room Air 21 01/31/18 11:16 51 20 Room Air 21 01/31/18 09:00 52 136/62 01/31/18 09:00 Room Air 01/31/18 08:23 141/74 01/31/18 08:23 54 141/74 01/31/18 08:19 97.5 54 18 141/74 (96) 95 97.5 Intake and Output 01/31/18 02/01/18 19:00 07:00 Intake Total 540 ml 1600 ml Output Total 900 ml Balance -360 ml 1600 ml Intake Oral 240 ml 1600 ml IV Total 300 ml Output Urine Total 900 ml # Voids 1 4 # Bowel Movements 1 Laboratory Tests 02/01/18 05:45: White Blood Count 5.3, Red Blood Count 3.63L, Hemoglobin 11.5L, Hematocrit 34.7L , Mean Corpuscular Volume 96, Mean Corpuscular Hemoglobin 31.7H, Mean Corpuscular Hemoglobin Concent 33.1, Red Cell Distribution Width 11.4L, Platelet Count 189, Mean Platelet Volume 7.5, Neutrophils (%) (Auto) 48.7, Lymphocytes (%) (Auto) 24.0, Monocytes (%) (Auto) 16.0H, Eosinophils (%) (Auto) 10.8H, Basophils (%) (Auto) 0.5, Sodium Level 133L, Potassium Level 4.1, Chloride Level 97L, Carbon Dioxide Level 28, Anion Gap 8, Blood Urea Nitrogen 17 , Creatinine 2.6H, Estimat Glomerular Filtration Rate 22.4, Glucose Level 104, Calcium Level 10.6H Height (Feet): 5 Height (Inches): 10.00 Weight (Pounds): 194 General Appearance: alert EENT: normal ENT inspection Neck: normal alignment Cardiovascular: normal peripheral pulses, normal rate, regular rhythm Respiratory/Chest: chest wall non-tender, decreased breath sounds Abdomen: normal bowel sounds, non tender, soft Extremities: normal inspection Edema: no edema noted Arm (L), no edema noted Arm (R), no edema noted Leg (L), no edema noted Leg (R), no edema noted Pedal (L), no edema noted Pedal (R), no edema noted Generalized Neurologic: responsive, motor weakness Skin: normal pigmentation, warm/dry Cristi Sawyer DO Feb 01, 2018 08:02
[2018-02-01] MEDS: Carvedilol 12.5mg tab ORAL SCH ×2 (09:00→20:32)
[2018-02-01] MEDS: Sertraline 100mg tab ORAL SCH (09:09)
[2018-02-01] MEDS: Albuterol 2mg Tab ORAL SCH ×4 (09:09→20:32)
[2018-02-01] MEDS: Losartan 50mg tab ORAL SCH (09:09)
[2018-02-01] MEDS: Spironolactone 25mg tab ORAL SCH (09:10)
[2018-02-01] MEDS: Sucralfate 1gm tab ORAL SCH ×4 (09:10→20:32)
[2018-02-01] MEDS: Pred Forte 1% Opth Susp 1ml LEFT EYE SCH ×2 (09:11→18:25)
--- NOTE | 2018-02-01 09:40 | General Progress Note ---
Assessment/Plan Status: stable Assessment/Plan # Anemia of chronic disease - have ordered panel to make sure b12, tsh, folate are wnl. CURRENTLY STABLE AT 11.5 --> Anemia w/u has been reviewed. Will trend CBC. 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 Right perihilar scarring. No definite acute process The time the note was entered does not necessarily correspond to the time the patient was seen. Subjective Date patient seen: Feb 01, 2018 ROS Limited/Unobtainable: Yes Hematologic/Lymphatic: Reports: anemia Allergies: Coded Allergies: NO KNOWN ALLERGIES (Verified Allergy, Unknown, 09/04/17) All Systems: reviewed and negative except above Subjective Pt awake and alert. No acute events. H/H stable. Low HR Objective Last 24 Hour Vital Signs Date Time Temp Pulse Resp B/P (MAP) Pulse Ox O2 Delivery O2 Flow Rate FiO2 02/01/18 09:10 61 132/65 02/01/18 09:09 132/65 02/01/18 09:00 61 132/65 02/01/18 07:23 59 18 Room Air 21 02/01/18 07:11 98.2 02/01/18 04:00 98.2 58 18 129/61 (83) 98 98.2 02/01/18 00:00 98.1 57 19 148/69 (95) 98.1 01/31/18 21:00 58 138/72 01/31/18 20:52 98.1 01/31/18 20:33 55 20 Room Air 21 01/31/18 20:00 98.2 58 19 138/72 (94) 96 98.2 01/31/18 16:00 98.1 58 20 138/59 (85) 96 98.1 01/31/18 12:00 98.0 52 18 136/62 (86) 97 98.0 01/31/18 12:00 52 01/31/18 11:20 53 20 99 Room Air 21 01/31/18 11:16 51 18 96 Room Air 21 01/31/18 11:16 51 20 Room Air 21 Intake and Output 01/31/18 02/01/18 19:00 07:00 Intake Total 540 ml 2160 ml Output Total 900 ml Balance -360 ml 2160 ml Intake Oral 240 ml 2160 ml IV Total 300 ml Output Urine Total 900 ml # Voids 1 7 # Bowel Movements 1 Laboratory Tests 02/01/18 05:45: White Blood Count 5.3, Red Blood Count 3.63L, Hemoglobin 11.5L, Hematocrit 34.7L , Mean Corpuscular Volume 96, Mean Corpuscular Hemoglobin 31.7H, Mean Corpuscular Hemoglobin Concent 33.1, Red Cell Distribution Width 11.4L, Platelet Count 189, Mean Platelet Volume 7.5, Neutrophils (%) (Auto) 48.7, Lymphocytes (%) (Auto) 24.0, Monocytes (%) (Auto) 16.0H, Eosinophils (%) (Auto) 10.8H, Basophils (%) (Auto) 0.5, Sodium Level 133L, Potassium Level 4.1, Chloride Level 97L, Carbon Dioxide Level 28, Anion Gap 8, Blood Urea Nitrogen 17 , Creatinine 2.6H, Estimat Glomerular Filtration Rate 22.4, Glucose Level 104, Calcium Level 10.6H Height (Feet): 5 Height (Inches): 10.00 Weight (Pounds): 194 General Appearance: no apparent distress EENT: PERRL/EOMI Neck: normal alignment Cardiovascular: bradycardia Respiratory/Chest: no respiratory distress Abdomen: soft Willie Avila MD Feb 01, 2018 09:40
--- NOTE | 2018-02-01 11:53 | Nephrology Progress Note ---
Assessment/Plan Assessment 1. Acute on chronic renal failure. The acute renal failure may be due to back pain versus interstitial nephritis. 2. bronchiectasis. 3. Hypertension. 4. COPD. Plan plan may need to hold losartan continue iv antibiotic monitoring renal function avoid NSAID replace electrolyte Subjective Constitutional: Reports: no symptoms HEENT: Reports: no symptoms Genitourinary: Reports: no symptoms Neurologic/Psychiatric: Reports: no symptoms Subjective alert and awake no complaints Objective Objective Last 24 Hour Vital Signs Date Time Temp Pulse Resp B/P (MAP) Pulse Ox O2 Delivery O2 Flow Rate FiO2 02/01/18 09:10 61 132/65 02/01/18 09:09 132/65 02/01/18 09:00 61 132/65 02/01/18 08:00 98.6 61 19 132/65 (87) 97 98.6 02/01/18 08:00 Room Air 02/01/18 07:23 59 18 Room Air 21 02/01/18 07:11 98.2 02/01/18 04:00 98.2 58 18 129/61 (83) 98 98.2 02/01/18 00:00 98.1 57 19 148/69 (95) 98.1 01/31/18 21:00 58 138/72 01/31/18 20:52 98.1 01/31/18 20:33 55 20 Room Air 21 01/31/18 20:00 98.2 58 19 138/72 (94) 96 98.2 01/31/18 16:00 98.1 58 20 138/59 (85) 96 98.1 01/31/18 12:00 98.0 52 18 136/62 (86) 97 98.0 01/31/18 12:00 52 Intake and Output 01/31/18 02/01/18 19:00 07:00 Intake Total 540 ml 2160 ml Output Total 900 ml Balance -360 ml 2160 ml Intake Oral 240 ml 2160 ml IV Total 300 ml Output Urine Total 900 ml # Voids 1 7 # Bowel Movements 1 Laboratory Tests 02/01/18 05:45: White Blood Count 5.3, Red Blood Count 3.63L, Hemoglobin 11.5L, Hematocrit 34.7L , Mean Corpuscular Volume 96, Mean Corpuscular Hemoglobin 31.7H, Mean Corpuscular Hemoglobin Concent 33.1, Red Cell Distribution Width 11.4L, Platelet Count 189, Mean Platelet Volume 7.5, Neutrophils (%) (Auto) 48.7, Lymphocytes (%) (Auto) 24.0, Monocytes (%) (Auto) 16.0H, Eosinophils (%) (Auto) 10.8H, Basophils (%) (Auto) 0.5, Sodium Level 133L, Potassium Level 4.1, Chloride Level 97L, Carbon Dioxide Level 28, Anion Gap 8, Blood Urea Nitrogen 17 , Creatinine 2.6H, Estimat Glomerular Filtration Rate 22.4, Glucose Level 104, Calcium Level 10.6H Height (Feet): 5 Height (Inches): 10.00 Weight (Pounds): 194 Objective HEAD AND NECK: No JVP. No LAD. No thyromegaly. Extraocular movement intact. Pupils are reactive to light and accommodation. LUNGS: Clear to auscultation. CARDIAC: Regular rate and rhythm. S1 and S2. No murmur. No rub. ABDOMEN: Soft, nontender, and nondistended. No organomegaly. EXTREMITIES: No edema. No clubbing. No cyanosis. Selena Howard MD Feb 01, 2018 11:53
[2018-02-01 12:00] VITALS: BP 132/69
[2018-02-01] MEDS: Promethazine/Codeine 5ml UD ORAL PRN (12:56)
[2018-02-01 16:00] VITALS: BP 140/60
--- NOTE | 2018-02-01 16:41 | Diagnostic Imaging Report ---
Indication: Cough Technique: 2 views of the chest Comparison: 01/29/2018 Findings: Extensive fibrotic change, bronchiectasis, and pleural scarring and volume loss in the left lung are unchanged. Right perihilar opacity is unchanged. No new infiltrates. The heart size is upper limits normal. The thoracic spine is mildly scoliotic Impression: Unchanged, over 3 days, findings as above.
--- NOTE | 2018-02-01 17:37 | Infectious Diseases Prog Note ---
Assessment/Plan Assessment/Plan Assessment/Plan 67 yo female with PMHx of Bronchiectasiss and COPD who presented to the ED on with SOB and mild hemoptysis. # SOB More likely to be COPD exacerbation then PNA - No evidence of PNA on imaging -CXR 02/01 : Extensive fibrotic change, bronchiectasis, and pleural scarring and volume loss in the left lung are unchanged. Right perihilar opacity is unchanged. No new infiltrates. - CXR - 01/29/18 - Extensive chronic appearing abnormality of the left lung, unchanged from earlier studies. Right perihilar scarring, unchanged No definite acute process - Sputum cultures pending # Hemoptysis Mild likely secondary to coughing and bronchiectasis - Low suspicion of active Tb give previous treatment and lack of typical TB finding on lung imaging # TB S/P Tx 20 years ago #Bronchiectasis #COPD #Hypertension #Anxiety PLAN: -Continue Levofloxacin abx d#/ for PNA -01/30 SP IV Vancomycin and Cefepime #2 - f/u Sputum Cultures - Monitor Temps and CBC -May need bronchoscopy if ongoing hemoptysis. Thank you for consulting us for the care of this patient. We will continue to follow with you. Subjective Allergies: Coded Allergies: NO KNOWN ALLERGIES (Verified Allergy, Unknown, 09/04/17) Subjective afebrile no leukocytosis At rRA Objective Vital Signs Last 24 Hour Vital Signs Date Time Temp Pulse Resp B/P (MAP) Pulse Ox O2 Delivery O2 Flow Rate FiO2 02/01/18 12:00 98.7 57 16 132/69 (90) 93 98.7 02/01/18 09:10 61 132/65 02/01/18 09:09 132/65 02/01/18 09:00 61 132/65 02/01/18 08:00 98.6 61 19 132/65 (87) 97 98.6 02/01/18 08:00 Room Air 02/01/18 07:23 59 18 Room Air 21 02/01/18 07:11 98.2 02/01/18 04:00 98.2 58 18 129/61 (83) 98 98.2 02/01/18 00:00 98.1 57 19 148/69 (95) 98.1 01/31/18 21:00 58 138/72 01/31/18 20:52 98.1 01/31/18 20:33 55 20 Room Air 21 01/31/18 20:00 98.2 58 19 138/72 (94) 96 98.2 Height (Feet): 5 Height (Inches): 10.00 Weight (Pounds): 194 Objective Gen: NAD, well appearing, alert HEENT: NCAT, MMM, EOMI, PERRL, No Oral lesion, no scleral icterus NECK: full range of motion, supple, no meningismus, No LAD, No JVD LUNGS: Generally no W/C, some mild crackle i the bases CARDS: RRR, S1, S2, No M/R/G ABD: Soft, NT, ND, No R/G, + BS, No HSM, No Masses : Deferred Ext: C/C/E, Pulses 2+ B/L (DP, Rad) NEURO: A/O x 4, Strength and Sensation Grossly intact PSYCH: mood/affect normal SKIN:~ warm/dry, No rashes Microbiology Date/Time Source Procedure Growth Status 01/31/18 12:05 Sputum Expectorated Gram Stain - Final Resulted 01/31/18 12:05 Sputum Expectorated Sputum Culture Pending Resulted Laboratory Tests Test 02/01/18 05:45 White Blood Count 5.3 K/UL (4.8-10.8) Red Blood Count 3.63 M/UL (4.20-5.40) L Hemoglobin 11.5 G/DL (12.0-16.0) L Hematocrit 34.7 % (37.0-47.0) L Mean Corpuscular Volume 96 FL (80-99) Mean Corpuscular Hemoglobin 31.7 PG (27.0-31.0) H Mean Corpuscular Hemoglobin Concent 33.1 G/DL (32.0-36.0) Red Cell Distribution Width 11.4 % (11.6-14.8) L Platelet Count 189 K/UL (150-450) Mean Platelet Volume 7.5 FL (6.5-10.1) Neutrophils (%) (Auto) 48.7 % (45.0-75.0) Lymphocytes (%) (Auto) 24.0 % (20.0-45.0) Monocytes (%) (Auto) 16.0 % (1.0-10.0) H Eosinophils (%) (Auto) 10.8 % (0.0-3.0) H Basophils (%) (Auto) 0.5 % (0.0-2.0) Sodium Level 133 MMOL/L (136-145) L Potassium Level 4.1 MMOL/L (3.5-5.1) Chloride Level 97 MMOL/L (98-107) L Carbon Dioxide Level 28 MMOL/L (21-32) Anion Gap 8 mmol/L (5-15) Blood Urea Nitrogen 17 mg/dL (7-18) Creatinine 2.6 MG/DL (0.55-1.30) H Estimat Glomerular Filtration Rate 22.4 mL/min (>60) Glucose Level 104 MG/DL (74-106) Calcium Level 10.6 MG/DL (8.5-10.1) H Current Medications Medications (Trade) Dose Ordered Sig/Suraj Route PRN Reason Start Time Stop Time Status Last Admin Dose Admin Acetaminophen (Tylenol) 650 mg Q4H PRN ORAL FEVER 01/31/18 15:24 02/28/18 15:23 Albuterol Sulfate (Proventil) 2 mg FOUR TIMES A DAY ORAL 01/31/18 18:00 03/02/18 17:59 02/01/18 12:56 Albuterol/ Ipratropium (Albuterol/ Ipratropium) 3 ml Q4H PRN HHN Shortness of Breath 01/31/18 18:15 02/03/18 14:14 Amlodipine Besylate (Norvasc) 10 mg DAILY ORAL 02/01/18 09:00 03/01/18 08:59 02/01/18 09:10 Carvedilol (Coreg) 12.5 mg EVERY 12 HOURS ORAL 01/31/18 21:00 03/01/18 08:59 Dextrose (Dextrose 50%) STAT PRN IV Hypoglycemia 02/01/18 14:15 02/28/18 14:14 Gabapentin (Neurontin) 600 mg QHS ORAL 01/31/18 21:00 02/28/18 20:59 01/31/18 21:05 Levofloxacin (Levaquin) 750 mg Q48H ORAL 02/01/18 14:45 02/06/18 14:44 02/01/18 15:03 Lidocaine (Xylocaine 1% MPF 5ml) 10 ml Q4H PRN HHN cough 01/31/18 16:30 03/01/18 16:29 Lorazepam (Ativan 2mg/ml 1ml) 2 mg Q2H PRN IV For Anxiety 01/31/18 16:15 02/05/18 14:14 Losartan Potassium (Cozaar) 50 mg DAILY ORAL 02/01/18 09:00 03/01/18 08:59 02/01/18 09:09 Morphine Sulfate (Morphine Sulfate) 4 mg Q4H PRN IVP Severe Pain (Pain Scale 7-10) 01/31/18 18:15 02/05/18 14:14 02/01/18 15:03 Ondansetron HCl (Zofran) 4 mg Q6H PRN IVP Nausea & Vomiting 01/31/18 15:26 02/28/18 15:25 Pantoprazole (Protonix) 40 mg EVERY 12 HOURS ORAL 01/31/18 21:00 03/02/18 20:59 02/01/18 09:09 Polyethylene Glycol (Miralax) 17 gm DAILYPRN PRN ORAL Constipation 01/31/18 15:26 03/02/18 15:25 02/01/18 13:01 Prednisolone Acetate (Pred Forte) 2 drop TWICE A DAY LEFT EYE 01/31/18 18:00 02/28/18 17:59 02/01/18 09:11 Promethazine HCl/ Codeine (Phenergan with Codeine) 5 ml Q6H PRN ORAL For Cough 01/31/18 15:26 02/28/18 15:25 02/01/18 12:56 Sertraline HCl (Zoloft) 100 mg DAILY ORAL 02/01/18 09:00 03/01/18 08:59 02/01/18 09:09 Spironolactone (Aldactone) 12.5 mg DAILY ORAL 02/01/18 09:00 03/01/18 08:59 02/01/18 09:10 Sucralfate (Carafate) 1 gm FOUR TIMES A DAY ORAL 01/31/18 18:00 03/02/18 17:59 02/01/18 12:55 Theophylline (Gunnar-Dur) 100 mg Q12H ORAL 01/31/18 17:00 03/02/18 16:59 02/01/18 05:16 April Amezcua M.D. Feb 01, 2018 17:37
--- NOTE | 2018-02-01 18:07 | Pulmonology Progress Note ---
Assessment/Plan Problems: (1) Hemoptysis, unspecified (2) Bronchiectasis (3) Anxiety (4) COPD (chronic obstructive pulmonary disease) (5) Hx of tuberculosis Assessment/Plan slightly better check sputum iv abx titrate fio2 to sat of 92% check electrolytes Lidocain inhalation for refractory cough add albuterol PO theophyline PO swallow study because of choking during eating Subjective ROS Limited/Unobtainable: No Constitutional: Reports: no symptoms HEENT: Repors: no symptoms Allergies: Coded Allergies: NO KNOWN ALLERGIES (Verified Allergy, Unknown, 09/04/17) Objective Last 24 Hour Vital Signs Date Time Temp Pulse Resp B/P (MAP) Pulse Ox O2 Delivery O2 Flow Rate FiO2 02/01/18 12:00 98.7 57 16 132/69 (90) 93 98.7 02/01/18 09:10 61 132/65 02/01/18 09:09 132/65 02/01/18 09:00 61 132/65 02/01/18 08:00 98.6 61 19 132/65 (87) 97 98.6 02/01/18 08:00 Room Air 02/01/18 07:23 59 18 Room Air 21 02/01/18 07:11 98.2 02/01/18 04:00 98.2 58 18 129/61 (83) 98 98.2 02/01/18 00:00 98.1 57 19 148/69 (95) 98.1 01/31/18 21:00 58 138/72 01/31/18 20:52 98.1 01/31/18 20:33 55 20 Room Air 21 01/31/18 20:00 98.2 58 19 138/72 (94) 96 98.2 Intake and Output 01/31/18 02/01/18 19:00 07:00 Intake Total 540 ml 2160 ml Output Total 900 ml Balance -360 ml 2160 ml Intake Oral 240 ml 2160 ml IV Total 300 ml Output Urine Total 900 ml # Voids 1 7 # Bowel Movements 1 General Appearance: WD/WN HEENT: atraumatic, PERRL Respiratory/Chest: lungs clear, normal breath sounds, chest wall tender Cardiovascular: normal peripheral pulses, regular rhythm Abdomen: soft, non tender, no scars Skin: no ulcers Neurologic/Psychiatric: abnormal gait Microbiology Date/Time Source Procedure Growth Status 01/31/18 12:05 Sputum Expectorated Gram Stain - Final Resulted 01/31/18 12:05 Sputum Expectorated Sputum Culture Pending Resulted Laboratory Tests 02/01/18 05:45: White Blood Count 5.3, Red Blood Count 3.63L, Hemoglobin 11.5L, Hematocrit 34.7L , Mean Corpuscular Volume 96, Mean Corpuscular Hemoglobin 31.7H, Mean Corpuscular Hemoglobin Concent 33.1, Red Cell Distribution Width 11.4L, Platelet Count 189, Mean Platelet Volume 7.5, Neutrophils (%) (Auto) 48.7, Lymphocytes (%) (Auto) 24.0, Monocytes (%) (Auto) 16.0H, Eosinophils (%) (Auto) 10.8H, Basophils (%) (Auto) 0.5, Sodium Level 133L, Potassium Level 4.1, Chloride Level 97L, Carbon Dioxide Level 28, Anion Gap 8, Blood Urea Nitrogen 17 , Creatinine 2.6H, Estimat Glomerular Filtration Rate 22.4, Glucose Level 104, Calcium Level 10.6H Current Medications Medications (Trade) Dose Ordered Sig/Suraj Route PRN Reason Start Time Stop Time Status Last Admin Dose Admin Acetaminophen (Tylenol) 650 mg Q4H PRN ORAL FEVER 01/31/18 15:24 02/28/18 15:23 Albuterol Sulfate (Proventil) 2 mg FOUR TIMES A DAY ORAL 01/31/18 18:00 03/02/18 17:59 02/01/18 12:56 Albuterol/ Ipratropium (Albuterol/ Ipratropium) 3 ml Q4H PRN HHN Shortness of Breath 01/31/18 18:15 02/03/18 14:14 Amlodipine Besylate (Norvasc) 10 mg DAILY ORAL 02/01/18 09:00 03/01/18 08:59 02/01/18 09:10 Carvedilol (Coreg) 12.5 mg EVERY 12 HOURS ORAL 01/31/18 21:00 03/01/18 08:59 Dextrose (Dextrose 50%) STAT PRN IV Hypoglycemia 02/01/18 14:15 02/28/18 14:14 Gabapentin (Neurontin) 600 mg QHS ORAL 01/31/18 21:00 02/28/18 20:59 01/31/18 21:05 Levofloxacin (Levaquin) 750 mg Q48H ORAL 02/01/18 14:45 02/06/18 14:44 02/01/18 15:03 Lidocaine (Xylocaine 1% MPF 5ml) 10 ml Q4H PRN HHN cough 01/31/18 16:30 03/01/18 16:29 Lorazepam (Ativan 2mg/ml 1ml) 2 mg Q2H PRN IV For Anxiety 01/31/18 16:15 02/05/18 14:14 Losartan Potassium (Cozaar) 50 mg DAILY ORAL 02/01/18 09:00 03/01/18 08:59 02/01/18 09:09 Morphine Sulfate (Morphine Sulfate) 4 mg Q4H PRN IVP Severe Pain (Pain Scale 7-10) 01/31/18 18:15 02/05/18 14:14 02/01/18 15:03 Ondansetron HCl (Zofran) 4 mg Q6H PRN IVP Nausea & Vomiting 01/31/18 15:26 02/28/18 15:25 Pantoprazole (Protonix) 40 mg EVERY 12 HOURS ORAL 01/31/18 21:00 03/02/18 20:59 02/01/18 09:09 Polyethylene Glycol (Miralax) 17 gm DAILYPRN PRN ORAL Constipation 01/31/18 15:26 03/02/18 15:25 02/01/18 13:01 Prednisolone Acetate (Pred Forte) 2 drop TWICE A DAY LEFT EYE 01/31/18 18:00 02/28/18 17:59 02/01/18 09:11 Promethazine HCl/ Codeine (Phenergan with Codeine) 5 ml Q6H PRN ORAL For Cough 01/31/18 15:26 02/28/18 15:25 02/01/18 12:56 Sertraline HCl (Zoloft) 100 mg DAILY ORAL 02/01/18 09:00 03/01/18 08:59 02/01/18 09:09 Spironolactone (Aldactone) 12.5 mg DAILY ORAL 02/01/18 09:00 03/01/18 08:59 02/01/18 09:10 Sucralfate (Carafate) 1 gm FOUR TIMES A DAY ORAL 01/31/18 18:00 03/02/18 17:59 02/01/18 12:55 Theophylline (Gunnar-Dur) 100 mg Q12H ORAL 01/31/18 17:00 03/02/18 16:59 02/01/18 05:16 Montse Hendrix MD Feb 01, 2018 18:07
--- NOTE | 2018-02-01 19:00 | Progress Note ---
DATE: 02/01/2018 SUBJECTIVE: The patient is calm in bed. No behavior issues. She is able to answer the questions appropriately. She has anxiety at times. MENTAL STATUS EXAMINATION: The patient is alert and oriented times self, place, and situation. Mood is dysphoric. Affect is constricted, congruent with mood. Thought process is concrete. Thought content, no suicidal or homicidal ideations. ASSESSMENT: 1. 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 2. Anxiety disorder. 3. Major depressive disorder. PLAN: 1. We will continue the Zoloft 100 mg in the morning. 2. We will continue to follow and readjust the medications. Raine Merritt M.D. DR: BRANDO JOB#: [id number] CC:
[2018-02-01] MEDS ORDERED: Sennosides 8.6mg ORAL PRN (19:10)
[2018-02-01 20:00] VITALS: BP 145/61
[2018-02-01] MEDS: Albuterol/Ipratropium 3ml neb HHN PRN (21:44)
[2018-02-02] VITALS: BP 134/58
[2018-02-02 04:00] VITALS: BP 112/53
[2018-02-02] MEDS: Theophylline ER 100mg ORAL SCH (05:07)
[2018-02-02] MEDS: Albuterol/Ipratropium 3ml neb HHN PRN (07:31)
--- NOTE | 2018-02-02 07:37 | Pulmonology Progress Note ---
Assessment/Plan Assessment/Plan ASSESSMENT Bronchiectasis COPD Hemoptysis , unspecified History of TB, s/p Rx ( years ago) TOM Hypertensive heart disease with mild mitral regurgitation Hypertension Anemia of chronic disease Acute on chronic renal failure Mild pulmonary HTN History of DVT History of elevated CA-19-9 Major depressive disorder Anxiety disorder PLAN OF CARE titrate O2 to keep pulse oximetry above 92% pulmonary toilet empiric abx ID follows CXR no evidence of pneumonia, + extensive chronic changes lidocaine inhalation for refractory cough sputum cx x2 negative; blood cx negative BiPAP at HS and prn ECHO with pEF 60-65%, mild MR and RVSP of 40 c/w mild pulmonary HTN per technical support director dyspnea likely due to bronchiectasis blood pressure management with multiply regimen of antihypertensive venous duplex bilateral lower extremity negative status post Rx with a/coagulation x3 months heme follows anemia workup c/w anemia of chronic disease monitor H&H with goal to keep hemoglobin above 7 , currently stable repeat CA 19-9 monitor renal parameters, electrolytes, correct electrolytes as needed avoid nephrotoxic creat with small trend down to 2.7- likely baseline endoscopy rn follows renal US with normal bilateral echogenicity, muild R hydro ( present on previosu imaging as well) ? baseline psych seen and evaluated, diagnosed with depression and anxiety started on Zoloft case discussed and evaluated by supervising physician Subjective Allergies: Coded Allergies: NO KNOWN ALLERGIES (Verified Allergy, Unknown, 09/04/17) Subjective still cough with intermittent brown sputum no chest pain, using BiPAP at night Objective Last 24 Hour Vital Signs Date Time Temp Pulse Resp B/P (MAP) Pulse Ox O2 Delivery O2 Flow Rate FiO2 02/02/18 07:31 69 18 Room Air 21 02/02/18 07:31 69 18 97 Room Air 21 02/02/18 04:00 97.7 52 18 112/53 (72) 93 97.7 02/02/18 03:34 59 18 100 Facial 21 02/02/18 00:00 98.2 56 18 134/58 (83) 92 98.2 02/01/18 23:27 60 21 97 Facial 21 02/01/18 22:57 99.1 02/01/18 21:45 61 20 100 Room Air 21 02/01/18 21:40 60 16 100 Room Air 21 02/01/18 21:32 98.7 02/01/18 21:00 Room Air 02/01/18 20:33 99.1 02/01/18 20:32 60 145/61 02/01/18 20:00 99.1 60 18 145/61 (89) 93 99.1 02/01/18 19:03 63 18 Room Air 21 02/01/18 16:00 98.6 56 19 140/60 (86) 98 98.6 02/01/18 12:00 98.7 57 16 132/69 (90) 93 98.7 02/01/18 09:10 61 132/65 02/01/18 09:09 132/65 02/01/18 09:00 61 132/65 02/01/18 08:00 98.6 61 19 132/65 (87) 97 98.6 02/01/18 08:00 Room Air Intake and Output 02/01/18 02/02/18 19:00 07:00 Intake Total 850 ml 300 ml Balance 850 ml 300 ml Intake Oral 850 ml 300 ml # Voids 3 General Appearance: no acute distress HEENT: normocephalic, atraumatic, anicteric, mucous membranes moist Respiratory/Chest: no respiratory distress, no accessory muscle use, decreased breath sounds Cardiovascular: normal rate, regular rhythm Abdomen: soft, non tender - obese Extremities: no edema Neurologic/Psychiatric: alert, oriented x 3, responsive Musculoskeletal: normal muscle bulk Microbiology Date/Time Source Procedure Growth Status 02/01/18 10:55 Sputum Expectorated Gram Stain - Final Resulted 02/01/18 10:55 Sputum Expectorated Sputum Culture Pending Resulted 01/31/18 12:05 Sputum Expectorated Gram Stain - Final Resulted 01/31/18 12:05 Sputum Expectorated Sputum Culture Pending Resulted Laboratory Tests 02/02/18 06:40: White Blood Count [Pending], Red Blood Count [Pending], Hemoglobin [Pending], Hematocrit [Pending], Mean Corpuscular Volume [Pending], Mean Corpuscular Hemoglobin [Pending], Mean Corpuscular Hemoglobin Concent [Pending], Red Cell Distribution Width [Pending], Platelet Count [Pending], Mean Platelet Volume [ Pending], Neutrophils (%) (Auto) [Pending], Lymphocytes (%) (Auto) [Pending], Monocytes (%) (Auto) [Pending], Eosinophils (%) (Auto) [Pending], Basophils (%) (Auto) [Pending], Sodium Level [Pending], Potassium Level [Pending], Chloride Level [Pending], Carbon Dioxide Level [Pending], Blood Urea Nitrogen [Pending], Creatinine [Pending], Estimat Glomerular Filtration Rate [Pending], Glucose Level [Pending], Calcium Level [Pending] Current Medications Medications (Trade) Dose Ordered Sig/Suraj Route PRN Reason Start Time Stop Time Status Last Admin Dose Admin Acetaminophen (Tylenol) 650 mg Q4H PRN ORAL FEVER 01/31/18 15:24 02/28/18 15:23 02/01/18 20:33 Albuterol Sulfate (Proventil) 2 mg FOUR TIMES A DAY ORAL 01/31/18 18:00 03/02/18 17:59 02/01/18 20:32 Albuterol/ Ipratropium (Albuterol/ Ipratropium) 3 ml Q4H PRN HHN Shortness of Breath 01/31/18 18:15 02/03/18 14:14 02/02/18 07:31 Amlodipine Besylate (Norvasc) 10 mg DAILY ORAL 02/01/18 09:00 03/01/18 08:59 02/01/18 09:10 Carvedilol (Coreg) 12.5 mg EVERY 12 HOURS ORAL 01/31/18 21:00 03/01/18 08:59 02/01/18 20:32 Dextrose (Dextrose 50%) STAT PRN IV Hypoglycemia 02/01/18 14:15 02/28/18 14:14 Docusate Sodium (Colace) 100 mg THREE TIMES A DAY ORAL 02/02/18 09:00 03/04/18 08:59 Gabapentin (Neurontin) 600 mg QHS ORAL 01/31/18 21:00 02/28/18 20:59 02/01/18 20:32 Levofloxacin (Levaquin) 750 mg Q48H ORAL 02/01/18 14:45 02/06/18 14:44 02/01/18 15:03 Lidocaine (Xylocaine 1% MPF 5ml) 10 ml Q4H PRN HHN cough 01/31/18 16:30 03/01/18 16:29 Lorazepam (Ativan 2mg/ml 1ml) 2 mg Q2H PRN IV For Anxiety 01/31/18 16:15 02/05/18 14:14 Losartan Potassium (Cozaar) 50 mg DAILY ORAL 02/01/18 09:00 03/01/18 08:59 02/01/18 09:09 Morphine Sulfate (Morphine Sulfate) 4 mg Q4H PRN IVP Severe Pain (Pain Scale 7-10) 01/31/18 18:15 02/05/18 14:14 02/01/18 22:27 Ondansetron HCl (Zofran) 4 mg Q6H PRN IVP Nausea & Vomiting 01/31/18 15:26 02/28/18 15:25 Pantoprazole (Protonix) 40 mg EVERY 12 HOURS ORAL 01/31/18 21:00 03/02/18 20:59 02/01/18 20:32 Polyethylene Glycol (Miralax) 17 gm DAILYPRN PRN ORAL Constipation 01/31/18 15:26 03/02/18 15:25 02/01/18 13:01 Prednisolone Acetate (Pred Forte) 2 drop TWICE A DAY LEFT EYE 01/31/18 18:00 02/28/18 17:59 02/01/18 18:25 Promethazine HCl/ Codeine (Phenergan with Codeine) 5 ml Q6H PRN ORAL For Cough 01/31/18 15:26 02/28/18 15:25 02/01/18 12:56 Sennosides (Senokot) 1 tab DAILY PRN ORAL Constipation 02/01/18 19:10 03/03/18 19:09 Sertraline HCl (Zoloft) 100 mg DAILY ORAL 02/01/18 09:00 03/01/18 08:59 02/01/18 09:09 Spironolactone (Aldactone) 12.5 mg DAILY ORAL 02/01/18 09:00 03/01/18 08:59 02/01/18 09:10 Sucralfate (Carafate) 1 gm FOUR TIMES A DAY ORAL 01/31/18 18:00 03/02/18 17:59 02/01/18 20:32 Theophylline (Gunnar-Dur) 100 mg Q12H ORAL 01/31/18 17:00 03/02/18 16:59 02/02/18 05:07 Yashira Echols NP Feb 02, 2018 07:37
[2018-02-02 07:40] LABS: BASOPHILS % (AUTO) 0.8 % (0.0-2.0); EOSINOPHILS % (AUTO) 9.4 % (0.0-3.0); HEMATOCRIT 32.8 % (37.0-47.0); HEMOGLOBIN 10.8 G/DL (12.0-16.0); LYMPHOCYTES % (AUTO) 20.6 % (20.0-45.0); MEAN CORPUSCULAR VOLUME 96 FL (80-99); MONOCYTES % (AUTO) 17.2 % (1.0-10.0); PLATELET COUNT 173 K/UL (150-450); RED BLOOD COUNT 3.42 M/UL (4.20-5.40); RED CELL DISTRIBUTION WIDTH 11.2 % (11.6-14.8); WHITE BLOOD COUNT 5.1 K/UL (4.8-10.8)
[2018-02-02 07:52] LABS: ANION GAP 8 mmol/L (5-15); BLOOD UREA NITROGEN 19 mg/dL (7-18); CALCIUM 10.4 MG/DL (8.5-10.1); CARBON DIOXIDE 29 MMOL/L (21-32); CHLORIDE 95 MMOL/L (98-107); CREATININE 2.7 MG/DL (0.55-1.30); SODIUM 132 MMOL/L (136-145)
[2018-02-02 08:00] VITALS: BP 122/61
[2018-02-02] MEDS: Albuterol 2mg Tab ORAL SCH (08:48)
[2018-02-02] MEDS: Pred Forte 1% Opth Susp 1ml LEFT EYE SCH (08:48)
[2018-02-02] MEDS: Sucralfate 1gm tab ORAL SCH (08:48)
[2018-02-02] MEDS: Spironolactone 25mg tab ORAL SCH (08:48)
[2018-02-02] MEDS: Losartan 50mg tab ORAL SCH (08:49)
[2018-02-02] MEDS: Sertraline 100mg tab ORAL SCH (08:49)
[2018-02-02] MEDS: Carvedilol 12.5mg tab ORAL SCH ×2 (08:49→09:00)
--- NOTE | 2018-02-02 08:58 | General Progress Note ---
Assessment/Plan Problem List: (1) COPD (chronic obstructive pulmonary disease) ICD Codes: J44.9 - Chronic obstructive pulmonary disease, unspecified SNOMED: 76247614 (2) UTI (urinary tract infection) ICD Codes: N39.0 - Urinary tract infection, site not specified SNOMED: 50754744 (3) Anxiety ICD Codes: F41.9 - Anxiety disorder, unspecified SNOMED: 34461681 (4) Anemia ICD Codes: D64.9 - Anemia, unspecified SNOMED: 526881215 (5) Renal insufficiency ICD Codes: N28.9 - Disorder of kidney and ureter, unspecified SNOMED: 937132359, 460330703 (6) SOB (shortness of breath) ICD Codes: R06.02 - Shortness of breath SNOMED: 880285328 (7) Weak ICD Codes: R53.1 - Weakness SNOMED: 02875669 (8) Hemoptysis, unspecified ICD Codes: R04.2 - Hemoptysis SNOMED: 03052770 (9) Hx of tuberculosis ICD Codes: Z86.11 - Personal history of tuberculosis SNOMED: 128586236 (10) Bronchiectasis ICD Codes: J47.9 - Bronchiectasis, uncomplicated SNOMED: 62474915 Status: stable, progressing Assessment/Plan ot pt diet o2 pulm tx abx cbc bmp am dc plan w hh Subjective Constitutional: Reports: weakness Respiratory: Reports: cough, shortness of breath Allergies: Coded Allergies: NO KNOWN ALLERGIES (Verified Allergy, Unknown, 09/04/17) All Systems: reviewed and negative except above Subjective sl anxious Objective Last 24 Hour Vital Signs Date Time Temp Pulse Resp B/P (MAP) Pulse Ox O2 Delivery O2 Flow Rate FiO2 02/02/18 08:52 98.4 02/02/18 08:49 122/61 02/02/18 08:49 59 122/61 02/02/18 08:00 98.4 59 18 122/61 (81) 93 98.4 02/02/18 07:40 74 18 99 Room Air 21 02/02/18 07:31 69 18 Room Air 21 02/02/18 07:31 69 18 97 Room Air 21 02/02/18 04:00 97.7 52 18 112/53 (72) 93 97.7 02/02/18 03:34 59 18 100 Facial 21 02/02/18 00:00 98.2 56 18 134/58 (83) 92 98.2 02/01/18 23:27 60 21 97 Facial 21 02/01/18 22:57 99.1 02/01/18 21:45 61 20 100 Room Air 21 02/01/18 21:40 60 16 100 Room Air 21 02/01/18 21:32 98.7 02/01/18 21:00 Room Air 02/01/18 20:33 99.1 02/01/18 20:32 60 145/61 02/01/18 20:00 99.1 60 18 145/61 (89) 93 99.1 02/01/18 19:03 63 18 Room Air 21 02/01/18 16:00 98.6 56 19 140/60 (86) 98 98.6 02/01/18 12:00 98.7 57 16 132/69 (90) 93 98.7 02/01/18 09:10 61 132/65 02/01/18 09:09 132/65 02/01/18 09:00 61 132/65 Intake and Output 02/01/18 02/02/18 19:00 07:00 Intake Total 850 ml 300 ml Balance 850 ml 300 ml Intake Oral 850 ml 300 ml # Voids 3 Laboratory Tests 02/02/18 06:40: White Blood Count 5.1, Red Blood Count 3.42L, Hemoglobin 10.8L, Hematocrit 32.8L , Mean Corpuscular Volume 96, Mean Corpuscular Hemoglobin 31.5H, Mean Corpuscular Hemoglobin Concent 32.9, Red Cell Distribution Width 11.2L, Platelet Count 173, Mean Platelet Volume 7.6, Neutrophils (%) (Auto) 52.0, Lymphocytes (%) (Auto) 20.6, Monocytes (%) (Auto) 17.2H, Eosinophils (%) (Auto) 9.4H, Basophils (%) (Auto) 0.8, Sodium Level 132L, Potassium Level 4.0, Chloride Level 95L, Carbon Dioxide Level 29, Anion Gap 8, Blood Urea Nitrogen 19H, Creatinine 2.7H, Estimat Glomerular Filtration Rate 21.5, Glucose Level 115H, Calcium Level 10.4H Height (Feet): 5 Height (Inches): 10.00 Weight (Pounds): 192 General Appearance: alert EENT: normal ENT inspection Neck: normal alignment Cardiovascular: normal peripheral pulses, normal rate, regular rhythm Respiratory/Chest: chest wall non-tender, decreased breath sounds Abdomen: normal bowel sounds, non tender, soft Extremities: normal inspection Edema: no edema noted Arm (L), no edema noted Arm (R), no edema noted Leg (L), no edema noted Leg (R), no edema noted Pedal (L), no edema noted Pedal (R), no edema noted Generalized Neurologic: responsive, motor weakness Skin: normal pigmentation, warm/dry Cristi Sawyer DO Feb 02, 2018 08:58
[2018-02-02] MEDS ORDERED: Docusate 100mg cap ORAL SCH (09:00)
[2018-02-02] MEDS: Promethazine/Codeine 5ml UD ORAL PRN (10:36)
[2018-02-02] MEDS ORDERED: CARAFATE1 G1 ORAL (11:07)
[2018-02-02] MEDS ORDERED: SENNA-GEN8.6 M1 ORAL (11:07)
[2018-02-02] MEDS ORDERED: PROTONIX40 MG ORAL (11:07)
[2018-02-02] MEDS ORDERED: LEVAQUIN250 M1 ORAL (11:09)
--- NOTE | 2018-02-02 11:19 | Nephrology Progress Note ---
Assessment/Plan Assessment 1. Acute on chronic renal failure. The acute renal failure may be due to back pain versus interstitial nephritis. 2. bronchiectasis. 3. Hypertension. 4. COPD. Plan plan mix all ivpb with NS may need to hold losartan continue iv antibiotic monitoring renal function avoid NSAID replace electrolyte Subjective Constitutional: Reports: no symptoms HEENT: Reports: no symptoms Genitourinary: Reports: no symptoms Neurologic/Psychiatric: Reports: no symptoms Subjective alert and awake no complaints Objective Objective Last 24 Hour Vital Signs Date Time Temp Pulse Resp B/P (MAP) Pulse Ox O2 Delivery O2 Flow Rate FiO2 02/02/18 09:51 98.4 02/02/18 09:00 Room Air 02/02/18 09:00 59 122/61 02/02/18 08:52 98.4 02/02/18 08:49 122/61 02/02/18 08:49 59 122/61 02/02/18 08:00 98.4 59 18 122/61 (81) 93 98.4 02/02/18 07:40 74 18 99 Room Air 21 02/02/18 07:31 69 18 Room Air 21 02/02/18 07:31 69 18 97 Room Air 21 02/02/18 04:00 97.7 52 18 112/53 (72) 93 97.7 02/02/18 03:34 59 18 100 Facial 21 02/02/18 00:00 98.2 56 18 134/58 (83) 92 98.2 02/01/18 23:27 60 21 97 Facial 21 02/01/18 22:57 99.1 02/01/18 21:45 61 20 100 Room Air 21 02/01/18 21:40 60 16 100 Room Air 21 02/01/18 21:00 Room Air 02/01/18 20:33 99.1 02/01/18 20:32 60 145/61 02/01/18 20:00 99.1 60 18 145/61 (89) 93 99.1 02/01/18 19:03 63 18 Room Air 21 02/01/18 16:00 98.6 56 19 140/60 (86) 98 98.6 02/01/18 12:00 98.7 57 16 132/69 (90) 93 98.7 Intake and Output 02/01/18 02/02/18 19:00 07:00 Intake Total 850 ml 300 ml Balance 850 ml 300 ml Intake Oral 850 ml 300 ml # Voids 3 Laboratory Tests 02/02/18 06:40: White Blood Count 5.1, Red Blood Count 3.42L, Hemoglobin 10.8L, Hematocrit 32.8L , Mean Corpuscular Volume 96, Mean Corpuscular Hemoglobin 31.5H, Mean Corpuscular Hemoglobin Concent 32.9, Red Cell Distribution Width 11.2L, Platelet Count 173, Mean Platelet Volume 7.6, Neutrophils (%) (Auto) 52.0, Lymphocytes (%) (Auto) 20.6, Monocytes (%) (Auto) 17.2H, Eosinophils (%) (Auto) 9.4H, Basophils (%) (Auto) 0.8, Sodium Level 132L, Potassium Level 4.0, Chloride Level 95L, Carbon Dioxide Level 29, Anion Gap 8, Blood Urea Nitrogen 19H, Creatinine 2.7H, Estimat Glomerular Filtration Rate 21.5, Glucose Level 115H, Calcium Level 10.4H Height (Feet): 5 Height (Inches): 10.00 Weight (Pounds): 192 Objective HEAD AND NECK: No JVP. No LAD. No thyromegaly. Extraocular movement intact. Pupils are reactive to light and accommodation. LUNGS: Clear to auscultation. CARDIAC: Regular rate and rhythm. S1 and S2. No murmur. No rub. ABDOMEN: Soft, nontender, and nondistended. No organomegaly. EXTREMITIES: No edema. No clubbing. No cyanosis. Selena Howard MD Feb 02, 2018 11:19
[2018-02-02] MEDS ORDERED: Albuterol/Ipratropium 3ml neb HHN PRN (11:30)
[2018-02-02 12:00] VITALS: BP 125/66
--- NOTE | 2018-02-02 12:39 | Infectious Diseases Prog Note ---
Assessment/Plan Assessment/Plan Assessment/Plan 67 yo female with PMHx of Bronchiectasiss and COPD who presented to the ED on with SOB and mild hemoptysis. # SOB More likely to be COPD exacerbation then PNA - No evidence of PNA on imaging -CXR 02/01 : Extensive fibrotic change, bronchiectasis, and pleural scarring and volume loss in the left lung are unchanged. Right perihilar opacity is unchanged. No new infiltrates. - CXR - 01/29/18 - Extensive chronic appearing abnormality of the left lung, unchanged from earlier studies. Right perihilar scarring, unchanged No definite acute process - Sputum cultures normal hardy tod ate # Hemoptysis Mild likely secondary to coughing and bronchiectasis ; improving - Low suspicion of active Tb give previous treatment and lack of typical TB finding on lung imaging # TB S/P Tx 20 years ago #Bronchiectasis #COPD #Hypertension #Anxiety PLAN: -Continue Levofloxacin abx d#10/22 for PNA/bronchitis -01/30 SP IV Vancomycin and Cefepime #2 - f/u Sputum Cultures - Monitor Temps and CBC -May need bronchoscopy if ongoing hemoptysis. Thank you for consulting us for the care of this patient. We will continue to follow with you. Subjective Allergies: Coded Allergies: NO KNOWN ALLERGIES (Verified Allergy, Unknown, 09/04/17) Subjective afebrile no leukocytosis At rRA cough and hemoptysis improving Objective Vital Signs Last 24 Hour Vital Signs Date Time Temp Pulse Resp B/P (MAP) Pulse Ox O2 Delivery O2 Flow Rate FiO2 02/02/18 09:51 98.4 02/02/18 09:00 Room Air 02/02/18 09:00 59 122/61 02/02/18 08:52 98.4 02/02/18 08:49 122/61 02/02/18 08:49 59 122/61 02/02/18 08:00 98.4 59 18 122/61 (81) 93 98.4 02/02/18 07:40 74 18 99 Room Air 21 02/02/18 07:31 69 18 Room Air 21 02/02/18 07:31 69 18 97 Room Air 21 02/02/18 04:00 97.7 52 18 112/53 (72) 93 97.7 02/02/18 03:34 59 18 100 Facial 21 02/02/18 00:00 98.2 56 18 134/58 (83) 92 98.2 02/01/18 23:27 60 21 97 Facial 21 02/01/18 22:57 99.1 02/01/18 21:45 61 20 100 Room Air 21 02/01/18 21:40 60 16 100 Room Air 21 02/01/18 21:00 Room Air 02/01/18 20:33 99.1 02/01/18 20:32 60 145/61 02/01/18 20:00 99.1 60 18 145/61 (89) 93 99.1 02/01/18 19:03 63 18 Room Air 21 02/01/18 16:00 98.6 56 19 140/60 (86) 98 98.6 Height (Feet): 5 Height (Inches): 10.00 Weight (Pounds): 192 Objective Gen: NAD, well appearing, alert HEENT: NCAT, MMM, EOMI, PERRL, No Oral lesion, no scleral icterus NECK: full range of motion, supple, no meningismus, No LAD, No JVD LUNGS: Generally no W/C, some mild crackle i the bases CARDS: RRR, S1, S2, No M/R/G ABD: Soft, NT, ND, No R/G, + BS, No HSM, No Masses : Deferred Ext: C/C/E, Pulses 2+ B/L (DP, Rad) NEURO: A/O x 4, Strength and Sensation Grossly intact PSYCH: mood/affect normal SKIN:~ warm/dry, No rashes Microbiology Date/Time Source Procedure Growth Status 02/01/18 10:55 Sputum Expectorated Gram Stain - Final Resulted 02/01/18 10:55 Sputum Expectorated Sputum Culture - Preliminary NORMAL UPPER RESPIRATORY HARDY AT 24 ... Resulted 01/31/18 12:05 Sputum Expectorated Gram Stain - Final Complete 01/31/18 12:05 Sputum Expectorated Sputum Culture - Final NORMAL UPPER RESPIRATORY HARDY AT 48 ... Complete Laboratory Tests Test 02/02/18 06:40 White Blood Count 5.1 K/UL (4.8-10.8) Red Blood Count 3.42 M/UL (4.20-5.40) L Hemoglobin 10.8 G/DL (12.0-16.0) L Hematocrit 32.8 % (37.0-47.0) L Mean Corpuscular Volume 96 FL (80-99) Mean Corpuscular Hemoglobin 31.5 PG (27.0-31.0) H Mean Corpuscular Hemoglobin Concent 32.9 G/DL (32.0-36.0) Red Cell Distribution Width 11.2 % (11.6-14.8) L Platelet Count 173 K/UL (150-450) Mean Platelet Volume 7.6 FL (6.5-10.1) Neutrophils (%) (Auto) 52.0 % (45.0-75.0) Lymphocytes (%) (Auto) 20.6 % (20.0-45.0) Monocytes (%) (Auto) 17.2 % (1.0-10.0) H Eosinophils (%) (Auto) 9.4 % (0.0-3.0) H Basophils (%) (Auto) 0.8 % (0.0-2.0) Sodium Level 132 MMOL/L (136-145) L Potassium Level 4.0 MMOL/L (3.5-5.1) Chloride Level 95 MMOL/L (98-107) L Carbon Dioxide Level 29 MMOL/L (21-32) Anion Gap 8 mmol/L (5-15) Blood Urea Nitrogen 19 mg/dL (7-18) H Creatinine 2.7 MG/DL (0.55-1.30) H Estimat Glomerular Filtration Rate 21.5 mL/min (>60) Glucose Level 115 MG/DL (74-106) H Calcium Level 10.4 MG/DL (8.5-10.1) H Current Medications Medications (Trade) Dose Ordered Sig/Suraj Route PRN Reason Start Time Stop Time Status Last Admin Dose Admin Acetaminophen (Tylenol) 650 mg Q4H PRN ORAL FEVER 01/31/18 15:24 02/28/18 15:23 02/02/18 08:52 Albuterol Sulfate (Proventil) 2 mg FOUR TIMES A DAY ORAL 01/31/18 18:00 03/02/18 17:59 02/02/18 08:48 Albuterol/ Ipratropium (Albuterol/ Ipratropium) 3 ml Q4H PRN HHN Shortness of Breath 02/02/18 11:30 02/05/18 11:29 Amlodipine Besylate (Norvasc) 10 mg DAILY ORAL 02/01/18 09:00 03/01/18 08:59 02/02/18 08:49 Carvedilol (Coreg) 12.5 mg EVERY 12 HOURS ORAL 01/31/18 21:00 03/01/18 08:59 02/01/18 20:32 Dextrose (Dextrose 50%) STAT PRN IV Hypoglycemia 02/01/18 14:15 02/28/18 14:14 Docusate Sodium (Colace) 100 mg THREE TIMES A DAY ORAL 02/02/18 09:00 03/04/18 08:59 02/02/18 08:48 Gabapentin (Neurontin) 600 mg QHS ORAL 01/31/18 21:00 02/28/18 20:59 02/01/18 20:32 Levofloxacin (Levaquin) 750 mg Q48H ORAL 02/01/18 14:45 02/06/18 14:44 02/01/18 15:03 Lidocaine (Xylocaine 1% MPF 5ml) 10 ml Q4H PRN HHN cough 01/31/18 16:30 03/01/18 16:29 Lorazepam (Ativan 2mg/ml 1ml) 2 mg Q2H PRN IV For Anxiety 01/31/18 16:15 02/05/18 14:14 Losartan Potassium (Cozaar) 50 mg DAILY ORAL 02/01/18 09:00 03/01/18 08:59 02/02/18 08:49 Morphine Sulfate (Morphine Sulfate) 4 mg Q4H PRN IVP Severe Pain (Pain Scale 7-10) 01/31/18 18:15 02/05/18 14:14 02/01/18 22:27 Ondansetron HCl (Zofran) 4 mg Q6H PRN IVP Nausea & Vomiting 01/31/18 15:26 02/28/18 15:25 Pantoprazole (Protonix) 40 mg EVERY 12 HOURS ORAL 01/31/18 21:00 03/02/18 20:59 02/02/18 08:48 Polyethylene Glycol (Miralax) 17 gm DAILYPRN PRN ORAL Constipation 01/31/18 15:26 03/02/18 15:25 02/01/18 13:01 Prednisolone Acetate (Pred Forte) 2 drop TWICE A DAY LEFT EYE 01/31/18 18:00 02/28/18 17:59 02/02/18 08:48 Promethazine HCl/ Codeine (Phenergan with Codeine) 5 ml Q6H PRN ORAL For Cough 01/31/18 15:26 02/28/18 15:25 02/02/18 10:36 Sennosides (Senokot) 1 tab DAILY PRN ORAL Constipation 02/01/18 19:10 03/03/18 19:09 Sertraline HCl (Zoloft) 100 mg DAILY ORAL 02/01/18 09:00 03/01/18 08:59 02/02/18 08:49 Spironolactone (Aldactone) 12.5 mg DAILY ORAL 02/01/18 09:00 03/01/18 08:59 02/02/18 08:48 Sucralfate (Carafate) 1 gm FOUR TIMES A DAY ORAL 01/31/18 18:00 03/02/18 17:59 02/02/18 08:48 Theophylline (Gunnar-Dur) 100 mg Q12H ORAL 01/31/18 17:00 03/02/18 16:59 02/02/18 05:07 April Amezcua M.D. Feb 02, 2018 12:39
[2018-02-02] MEDS ORDERED: 1/2 NS 1000ml IV ONE (12:44)
--- NOTE | 2018-02-02 14:51 | General Progress Note ---
Assessment/Plan Status: stable Assessment/Plan # Anemia of chronic disease - have ordered panel to make sure b12, tsh, folate are wnl. CURRENTLY STABLE AT 11.5 --> Anemia w/u has been reviewed. Will trend CBC. 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 Right perihilar scarring. No definite acute process The time the note was entered does not necessarily correspond to the time the patient was seen. Subjective Date patient seen: Feb 02, 2018 Time patient seen: 07:00 ROS Limited/Unobtainable: Yes Hematologic/Lymphatic: Reports: anemia Allergies: Coded Allergies: NO KNOWN ALLERGIES (Verified Allergy, Unknown, 09/04/17) All Systems: reviewed and negative except above Subjective Pt is stable and medically cleared for DC. No acute distress. Objective Last 24 Hour Vital Signs Date Time Temp Pulse Resp B/P (MAP) Pulse Ox O2 Delivery O2 Flow Rate FiO2 02/02/18 12:00 97.0 61 18 125/66 (85) 95 97.0 02/02/18 09:51 98.4 02/02/18 09:00 Room Air 02/02/18 09:00 59 122/61 02/02/18 08:52 98.4 02/02/18 08:49 122/61 02/02/18 08:49 59 122/61 02/02/18 08:00 98.4 59 18 122/61 (81) 93 98.4 02/02/18 07:40 74 18 99 Room Air 21 02/02/18 07:31 69 18 Room Air 21 02/02/18 07:31 69 18 97 Room Air 21 02/02/18 04:00 97.7 52 18 112/53 (72) 93 97.7 02/02/18 03:34 59 18 100 Facial 21 02/02/18 00:00 98.2 56 18 134/58 (83) 92 98.2 02/01/18 23:27 60 21 97 Facial 21 02/01/18 22:57 99.1 02/01/18 21:45 61 20 100 Room Air 21 02/01/18 21:40 60 16 100 Room Air 21 02/01/18 21:00 Room Air 02/01/18 20:33 99.1 02/01/18 20:32 60 145/61 02/01/18 20:00 99.1 60 18 145/61 (89) 93 99.1 02/01/18 19:03 63 18 Room Air 21 02/01/18 16:00 98.6 56 19 140/60 (86) 98 98.6 Intake and Output 02/01/18 02/02/18 19:00 07:00 Intake Total 850 ml 300 ml Balance 850 ml 300 ml Intake Oral 850 ml 300 ml # Voids 3 Laboratory Tests 02/02/18 06:40: White Blood Count 5.1, Red Blood Count 3.42L, Hemoglobin 10.8L, Hematocrit 32.8L , Mean Corpuscular Volume 96, Mean Corpuscular Hemoglobin 31.5H, Mean Corpuscular Hemoglobin Concent 32.9, Red Cell Distribution Width 11.2L, Platelet Count 173, Mean Platelet Volume 7.6, Neutrophils (%) (Auto) 52.0, Lymphocytes (%) (Auto) 20.6, Monocytes (%) (Auto) 17.2H, Eosinophils (%) (Auto) 9.4H, Basophils (%) (Auto) 0.8, Sodium Level 132L, Potassium Level 4.0, Chloride Level 95L, Carbon Dioxide Level 29, Anion Gap 8, Blood Urea Nitrogen 19H, Creatinine 2.7H, Estimat Glomerular Filtration Rate 21.5, Glucose Level 115H, Calcium Level 10.4H Height (Feet): 5 Height (Inches): 10.00 Weight (Pounds): 192 General Appearance: no apparent distress, alert EENT: PERRL/EOMI Neck: normal alignment Cardiovascular: bradycardia Respiratory/Chest: no respiratory distress Abdomen: soft Willie Avila MD Feb 02, 2018 14:51
--- NOTE | 2018-02-05 08:49 | Discharge Summary ---
Discharge Summary Discharge Summary _ DATE OF ADMISSION: 01/29/2018 DATE OF DISCHARGE: 02/02/2018 REASON FOR ADMISSION: 67 years old female with past medical history significant for bronchiectasis, COPD, history of tuberculosis, status post treatment years ago, hypertension, anxiety, presented after increased hemoptysis. Patient reported blood-tinged sputum. Patient was recently treated for pneumonia and was on oral antibiotics. She reported generalized weakness. Upon evaluation vital signs were stable : no fever ,stable pulse oximetry on room air ,no tachypnea. Laboratory workup revealed no leukocytosis, hemoglobin 11.7 hematocrit 35.5. BUN 18 , creatinine 2.8. Chest x-ray revealed extensive chronic-appearing abnormalities of the left lung ,unchanged from the previous studies. Right perihilar scarring unchanged. No definite acute process. Patient admitted with diagnosis of bronchiectasis, COPD, history of tuberculosis , hemoptysis unspecified, anxiety, hypertension, anemia, renal insufficiency. CONSULTANTS: voice teacher Dr. Holt pulmonary Dr. Hendrix ID specialist Dr. Ann kindergarten aide Dr. Howard electrician's helper/oncologist Dr. Avila psychiatrist [facility]SE: Patient admitted. Track Service Worker closely followed. Supplemental oxygen provided as needed and titrated to keep pulse oximetry above 92%. Pulmonary toilet provided. Patient was on empiric antibiotics. Infectious disease specialist closely followed. Lidocaine inhalation for refractory cough initiated. Sputum culture 2 were negative. Blood culture were negative. Patient with history of obstructive sleep apnea. BiPAP provided at nighttime and as needed. Straightening Machine Operator closely followed. Echocardiogram revealed preserved ejection fraction of 60-65%, mild mitral regurgitation and right ventricular systolic pressure of 40, consistent with mild pulmonary hypertension. Per voice teacher , dyspnea was likely due to bronchiectasis. Blood pressure was managed with multiply regimen of antihypertensive medications. Venous duplex bilateral lower extremity was negative. Patient status post treatment with anticoagulation for 3 months. Hematology closely followed. Anemia workup was consistent with anemia of chronic disease. Hemoglobin and hematocrit were closely monitored with goal to keep hemoglobin above 7, remained stable. CA-19-9 - 469 actually trending down from initial initially noted high years ago. The reading was the lowest in the years. No abdominal complaints. Physical Therapist recommended outpatient abdominal ultrasound and further imaging if deemed necessary. Renal parameters and electrolytes were closely monitored, electrolytes were corrected as needed, and nephrotoxins were avoided. Steel Rule Die Maker closely followed. Creatinine with small trend down , likely to baseline. Renal ultrasound revealed normal bilateral echogenicity, mild right hydronephrosis, present on previous imaging as well . Psychiatry seen and evaluated patient , diagnosed patient with depression and anxiety . Patient started on Zoloft. Reality orientation and supportive therapy provided. Follow-up chest x-ray revealed extensive fibrotic changes, bronchiectasis, pleural scaring and volume loss in the left lung , all unchanged. Right perihilar opacity without change. No new infiltrates. Per infectious disease specialist and garnett room worker , shortness of breath was due to COPD and bronchiectasis, more likely than due to pneumonia. There was no evidence of pneumonia on imaging, sputum culture 2 were negative . ID specialist recommended to continue Levaquin for 2 more days. Patient will need close follow-up with primary care provider and garnett room worker . Patient may need bronchoscopy if hemoptysis ongoing. Patient stabilized and was ready for discharge home with home health services. FINAL DIAGNOSES: Bronchiectasis COPD Hemoptysis, unspecified History of TB, status post treatment in (years ago) Obstructive sleep apnea Hypertensive heart disease with mild mitral regurgitation Hypertension Acute on chronic renal failure Mild pulmonary hypertension Anemia of chronic disease History of DVT Elevated CA-19-9 Major depressive disorder Anxiety disorder DISCHARGE MEDICATIONS: See Medication Reconciliation list. DISCHARGE INSTRUCTIONS: Patient was discharged home with home health services. Follow up with primary care provider in one week. Yashira Echols NP Feb 05, 2018 08:48
== END 2018-02-02 12:45 | disposition home health service (06) | DRG 191 ==
LOC: EMR 09:10 → EDBEDREQ 09:47 → 2E 09:56 → EDBEDREQ 10:28 → 2E 13:20 → 4E 01-31 15:10
DX: J47.9 Bronchiectasis, uncomplicated (principal); N17.9 Acute kidney failure, unspecified; N39.0 Urinary tract infection, site not specified; R04.2 Hemoptysis; F41.9 Anxiety disorder, unspecified; Z86.11 Personal history of tuberculosis; D63.8 Anemia in other chronic diseases classified elsewhere; I12.9 Hypertensive chronic kidney disease with stage 1 through stage 4 chronic kidney disease, or unspecified chronic kidney disease; N18.9 Chronic kidney disease, unspecified; E78.5 Hyperlipidemia, unspecified; Z86.718 Personal history of other venous thrombosis and embolism
CPT/HCPCS: 36415; 71045; 71046; 76770; 80048; 80053; 80069; 80202; 81003; 82043; 82044; 82550; 82553; 82570; 82728; 82746; 83540; 83550; 83605; 83735; 83880; 84100; 84300; 84484; 85007; 85025; 85384; 87040; 87070; 87205; 89050; 93005; 93306; 93970; 94640; 94660; 94664; J7620